=== PATIENT | male | born 1970 | race Caucasian/White ===

== ENCOUNTER → 2016-04-17 | Outpatient (CLI) | payer OTHER ==
[~2016-04-17] MED LIST: /TIZA4TA PO; GABA300C2 PO; LYRI100C10 PO; LYRI225C PO; LYRI75CA PO; MOBI15TA PO; OXYB5TA PO; ROBA750T4 PO; SAVE50TA PO; VICO5TAB OR; VOLT1GEL2 TD; [UNRECOGNIZED DRUG - OTHER]; baby aspirin PO
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
== END ==
LOC: M PAIN 10:20
PROVIDERS: ATTEND Nurse Practitioner Family
DX: Z09 Encounter for follow-up examination after completed treatment for conditions other than malignant neoplasm (principal); G89.29 Other chronic pain; G57.00 Lesion of sciatic nerve, unspecified lower limb; M79.7 Fibromyalgia; M51.26 Other intervertebral disc displacement, lumbar region; J44.9 Chronic obstructive pulmonary disease, unspecified; K43.6 Other and unspecified ventral hernia with obstruction, without gangrene; E55.9 Vitamin D deficiency, unspecified; J30.1 Allergic rhinitis due to pollen; J30.89 Other allergic rhinitis; Z91.018 Allergy to other foods; Z79.82 Long term (current) use of aspirin; Z79.899 Other long term (current) drug therapy; Z87.891 Personal history of nicotine dependence; Z86.59 Personal history of other mental and behavioral disorders

== ENCOUNTER → 2016-04-28 | Outpatient (CLI) | payer MEDICAID | LOC: M OUTALCOH 08:08 | PROVIDERS: ATTEND Psychiatry & Neurology Psychiatry | DX: Z13.9 Encounter for screening, unspecified (principal); F12.20 Cannabis dependence, uncomplicated ==

== ENCOUNTER → 2016-06-05 | Outpatient (CLI) | payer OTHER ==
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
== END ==
LOC: M PAIN 09:40
PROVIDERS: ATTEND Nurse Practitioner Family
DX: Z09 Encounter for follow-up examination after completed treatment for conditions other than malignant neoplasm (principal); G89.29 Other chronic pain; M51.26 Other intervertebral disc displacement, lumbar region; M54.16 Radiculopathy, lumbar region; M79.7 Fibromyalgia; J44.9 Chronic obstructive pulmonary disease, unspecified; E55.9 Vitamin D deficiency, unspecified; Z91.018 Allergy to other foods; J30.89 Other allergic rhinitis; Z87.891 Personal history of nicotine dependence; Z86.59 Personal history of other mental and behavioral disorders

== ENCOUNTER → 2016-06-13 | Outpatient (REF) | payer OTHER | LOC: M SFHCPLAZ 14:28 | PROVIDERS: ATTEND Family Medicine | DX: M54.16 Radiculopathy, lumbar region (principal); F12.10 Cannabis abuse, uncomplicated ==

== ENCOUNTER → 2016-06-24 | Outpatient (CLI) | payer MEDICAID | LOC: M OUTALCOH 08:23 | PROVIDERS: ATTEND Psychiatry & Neurology Psychiatry | DX: Z13.9 Encounter for screening, unspecified (principal); F12.20 Cannabis dependence, uncomplicated ==

== ENCOUNTER → 2016-07-07 | Outpatient (CLI) | payer OTHER ==
--- NOTE | 2016-07-07 11:25 | REP ---
MRI LUMBAR SPINE WITHOUT CONTRAST: HISTORY: Lumbar disc displacement without myelopathy. Increasing radicular pain. Low back pain radiating to the right leg. Comparison MRI study of the lumbar spine is from December 15, 2014. Comparison radiographs are from February 02, 2015. TECHNIQUE: Sagittal and axial T1 and T2-weighted scans are acquired in the usual fashion with and without fat saturation. Sequences include spin echo, turbo spin-echo, and STIR imaging sequences. MRI FINDINGS: There is straightening of the normal lumbar lordosis as before. Multilevel degenerative disc disease is noted at L2-3, L3-4, L4-5 with decreased disc space height and signal intensity on T2 weighted scans. Prominent anterior discogenic spurring is seen at L2-3 and L3-4. These findings are unchanged. There are reactive marrow changes on either side of the L2-3 disc as before. The conus medullaris terminates at T12-L1 and is unremarkable in appearance. At L1-2, there is no significant abnormality. At L2-3, axial and sagittal images demonstrate mild central canal stenosis with diffuse disc bulging flattening the ventral margin of the thecal sac. There is mild facet and ligamentum flavum hypertrophy. No neural foraminal narrowing is seen. At L3-4, there is diffuse disc bulging. Left foraminal disc bulging is seen producing left neural foraminal narrowing. This it is felt to be unchanged. L4-5, there is a right paracentral disc protrusion with caudal extrusion again seen. Previous study showed this disc extrusion exit eccentric to the left. There is compression of the thecal sac on the right on today's study. Some ligamentum flavum and facet hypertrophy are seen and mild central canal stenosis is noted although this overall is somewhat improved from the prior study. There is bilateral neural foraminal encroachment at L4-5 as before. At the L5-S1, there is facet hypertrophy bilaterally. No disc protrusion is seen. No neural foraminal compromise. IMPRESSION: The dominant abnormality is a moderate sized right posterior disc herniation with caudal extrusion. This was previously eccentric to the left. There is some central canal stenosis although the canal stenosis is improved compared to the prior study. Bilateral L4-5 neural foraminal narrowing is seen. Degenerative spondylosis changes are again noted in the other levels unchanged. Signed by Adin Ramírez MD 07/07/2016 11:51 A
== END ==
LOC: M RAD 07:22
PROVIDERS: ATTEND Nurse Practitioner Family
DX: M51.26 Other intervertebral disc displacement, lumbar region (principal); M54.16 Radiculopathy, lumbar region

== ENCOUNTER 2016-07-18 11:00 | Outpatient (RCR) | payer MEDICAID | END 2016-07-27 | LOC: M OUTALCOH 11:00 | PROVIDERS: ATTEND Psychiatry & Neurology Psychiatry | DX: F12.20 Cannabis dependence, uncomplicated (principal) ==

== ENCOUNTER → 2016-07-29 | Outpatient (CLI) | payer OTHER ==
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
== END ==
LOC: M PAIN 13:00
PROVIDERS: ATTEND Anesthesiology
DX: G89.29 Other chronic pain (principal); M51.16 Intervertebral disc disorders with radiculopathy, lumbar region; M79.7 Fibromyalgia; J44.9 Chronic obstructive pulmonary disease, unspecified; E55.9 Vitamin D deficiency, unspecified; Z87.891 Personal history of nicotine dependence; F10.21 Alcohol dependence, in remission; F41.1 Generalized anxiety disorder; F12.10 Cannabis abuse, uncomplicated; F32.89 Other specified depressive episodes; Z91.018 Allergy to other foods; J30.9 Allergic rhinitis, unspecified; Z79.899 Other long term (current) drug therapy

== ENCOUNTER → 2016-08-20 | Outpatient (REF) ==
--- NOTE | 2016-08-20 14:49 | REP ---
AP AND LATERAL CERVICAL SPINE, THREE VIEWS. HISTORY: Degenerative disc disease. The cervical spine is visualized from C1-2 through C7 level in the lateral radiograph. There is no acute fracture or subluxation. The C5-6 and C6-7 intervertebral discs are decreased in height consistent with disc degeneration. Osteophytes are present on C5 through C7. There is loss of the normal lordotic curve. IMPRESSION: Degenerative change as described above. Signed by Alfred Willams MD 08/20/2016 04:21 P
== END ==
LOC: M SMT 14:04
PROVIDERS: ATTEND Internal Medicine
DX: Z02.71 Encounter for disability determination (principal)

== ENCOUNTER 2016-08-22 10:00 | Outpatient (RCR) | payer OTHER | END 2016-08-27 | LOC: M OUTALCOH 10:00 | PROVIDERS: ATTEND Psychiatry & Neurology Psychiatry | DX: F12.20 Cannabis dependence, uncomplicated (principal) ==

== ENCOUNTER → 2016-09-09 | Outpatient (CLI) | payer OTHER ==
[~2016-09-09] MED LIST changes: +BUSP30TA PO; +CITA20TA4 PO; -LYRI100C10 PO; -OXYB5TA PO; +OXYB5TAB10 PO; +PREG100CA PO; +TRIA1CR TOP
--- NOTE | 2016-09-27 00:44 | ECWPNPC ---
PATIENT NAME: NIKHIL IRVIN : 1970 GENDER: MALE VISIT DATE: 09/09/2016 DISCHARGE DATE: 09/09/16 1447 VISIT LOCKED DATE TIME: PHYSICIAN: OLMAN MAIER PHYSICIAN PAGER NO: TEXT TO [phone] RESOURCE: OLMAN MAIER REASON FOR APPOINTMENT 1. BACK HISTORY OF PRESENT ILLNESS HISTORY OF PRESENT ILLNESS: PAIN THE PATIENT DESCRIBES THE PAIN... FALL RISK SCREENING: SCREENING :NO FALLS IN THE PAST YEAR TODAY'S VISIT: NOTES: HAS NOT YET HAD LESB WE HAVE NOT HEARD ON APPROVAL. CONTINUES WITH LOW BACK PAIN WITH RADIATION TO RIGHT LEG TO KNEE LEVE, AND WITH EXCESSIVE ACTIVITY PAIN ALSO RADIATES TO LEFT LEG. . CURRENT MEDICATIONS TAKING OXYBUTYNIN CHLORIDE 5 MG TABLET 1 TABLET ORALLY TWICE A DAY TAKING TENS UNIT ELECTRO PADS ONE SET WITH FOUR PADS GEL PADS MAY USE TRANSDERMAL EVERY OTHER DAY DX:722.73 TAKING METHOCARBAMOL 750 MG TABLET 1 TABLET ORALLY EVERY 8 HRS TAKING LYRICA 200 MG CAPSULE 1 CAPSULE ORALLY Q 8 HRS MDD=3 TAKING ALBUTEROL SULFATE HFA 108 (90 BASE) MCG/ACT AEROSOL SOLUTION 2 PUFFS NEEDED INHALATION EVERY 4 HRS PRN TAKING BUSPIRONE HCL 30 MG TABLET 1 TABLET ORALLY TWICE A DAY TAKING CITALOPRAM HYDROBROMIDE 40 MG TABLET 1 TABLET ORALLY Q AM (TOTAL DAILY DOSE 60MG) TAKING CITALOPRAM HYDROBROMIDE 20 MG TABLET 1 TABLET ORALLY Q PM (TOTAL DAILY DOSE 60MG) TAKING VALIUM 5 MG TABLET 1 TABLET NEEDED ORALLY TWICE A DAY, MDD #2 TAKING NABUMETONE 750 MG TABLET 2 TABLET ORALLY IN THE AM, ALWAYS TAKE WITH FOOD NOT-TAKING SAVELLA 50 MG TABLET 1 TABLET ORALLY TAKE 1 IN AM, 2 T EVENING MDD=3, NOTES: ON HOLD BECAUSE OF INSURANCE REASONS NOT-TAKING VOLTAREN 1 % GEL APPLY TO BACK TRANSDERMAL EVERY 6 HOURS (PAIN CLINIC), NOTES: USING BENGAY MEDICATION LIST REVIEWED AND RECONCILED WITH THE PATIENT PAST MEDICAL HISTORY LUMBAGO FIBROMYALGIA COPD - EMPHYSEMA EPIGASTRIC HERNIA DUST AND POLLEN ALLERGIES VITAMIN D DEFICIENCY H/O TOBACCO ABUSE 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 CONSTITUTIONAL: ANY CHANGE IN YOUR MEDICAL CONDITION? NO . CHILLS NO . FEVER NO . INFECTION: DO YOU HAVE NEW INFECTIONS? NO . DO YOU HAVE HISTORY OF MRSA? NO . MUSCULOSKELETAL: ANY NEW PATTERNS OF PAIN OR NUMBNESS? NO . GASTROENTEROLOGY: ANY NEW CHANGE IN BOWEL CONTROL? NO . GENITOURINARY: ANY NEW CHANGE IN BLADDER CONTROL? NO . IS THERE A CHANCE YOU COULD BE ? NO . HEMATOLOGY/LYMPH: DO YOU TAKE ANY BLOOD THINNERS? (FOR EXAMPLE- COUMADIN, PLAVIX, AGGRENOX, PLATEL, PRADAXA, OR XARELTO) NO . WHEN WAS YOUR LAST DOSE? DATE: TIME: . NEUROLOGY: HAVE YOU FALLEN IN THE PAST 6 MONTHS? NO . ANY NEW EXTREMITY NUMBNESS OR WEAKNESS? NO . CARDIOLOGY: DO YOU HAVE A PACEMAKER OR DEFIBRILLATOR? NO . RESPIRATORY: HAVE YOU BEEN SICK IN THE PAST WEEK? NO . FEVER NO . FLU LIKE SYMPTOMS? NO . COUGH NO . INTEGUMENTARY: DO YOU HAVE ANY RASHES OR OPEN SORES? NO . ALLERGIC/IMMUNO: ARE YOU ALLERGIC TO SHELLFISH OR IV DYE? NO . ANY NEW ALLERGIES? NO . PSYCHIATRIC: DO YOU HAVE THOUGHTS OF HURTING YOURSELF OR SOMEONE ELSE? NO . ARE YOU ABUSED, NEGLECTED, OR IN AN UNSAFE ENVIRONMENT? NO . ENDOCRINOLOGY: ARE YOU DIABETIC? NO . OTHER: DO YOU NEED ANY PRESCRIPTIONS? NO . IF YES, PLEASE LIST: ____ . ANY NEW PROBLEMS WITH YOUR MEDICATIONS? NO . WHEN DID YOU LAST EAT? ____ . WHEN DID YOU LAST DRINK? ____ . WHAT DID YOU LAST DRINK? ____ . NAME OF PERSON DRIVING YOU HOME? ____ . DO YOU HAVE ANY OTHER QUESTIONS OR CONCERNS NO . VITAL SIGNS WT 157.6 LBS, HT 69 IN, BMI 23.27 INDEX, BP 97/53 MM HG, HR 55 /MIN, RR 16 /MIN, TEMP 98.5 F, OXYGEN SAT % 97%, NA INITIALS SC 14:04, REVIEWED BY: CS. EXAMINATION GENERAL EXAMINATION: PSYCHALERT , APPROPRIATE MOOD AND AFFECT , ORIENTED X 3 . LUNGS:CLEAR TO AUSCULTATION BILATERALLY. HEART:HEART RATE REGULAR, RAPID. MUSCULOSKELETAL:PALPATION: POSITIVE FOR PAIN OVER LUMBAR SPINOUS PROCESSESS AND ACROSS THE LUMBOSACRAL AXIS. TRIGGER POINTS AND TIGHT FIBROUS BANDS:, ELICITED WITH PALPATION OVER LUMBAR PARAVERTEBRAL MUSCLES AND INTO THE SACRUM. RESTRICTION OF ROM IN THIS AREA. CANE USED FOR BALANCE.. ASSESSMENTS MYALGIA - M79.1 (PRIMARY) LUMBAR DISC DISPLACEMENT WITHOUT MYELOPATHY - M51.26 LUMBAR RADICULOPATHY - M54.16 FIBROMYALGIA - M79.7 TREATMENT MYALGIA NOTES: INTRALAMINAL EPIDURAL AT L4-5, L5-S1. HAS BEEN WAITING SINCE VISIT WITH DR LARES SINCE 07/29/16. WALK DAILY, DO EXERCISES AND STRETCHES. CONTINUE CURRENT MEDS. CLINICAL NOTES: ISTOP REGISTRY REVIEWED AND DEMNOSTRATES COMPLLIANCE. PROCEDURE CODES FA211 ESTABILISHED PATIENT [facility] FAC[facility] CHARGE DISPOSITION & COMMUNICATION FOLLOW UP AFTER INJECTION (REASON: INTRALAMINAL EPIDURAL AT L4-5, L5-S1. HAS BEEN WAITING SINCE VISIT WITH DR LARES SINCE 07/29/16) ELECTRONICALLY SIGNED BY KATI GALLARDO ON 09/26/2016 AT 04:37 PM EDT DISCLAIMER : THIS IS A VISIT SUMMARY EXTRACTED FROM THE [employer] CHART. IT IS NOT A COPY OF THE [employer] PROGRESS NOTE. JV
== END ==
LOC: M PAIN 14:00
PROVIDERS: ATTEND Nurse Practitioner Family
DX: M79.1 Myalgia (principal); M51.26 Other intervertebral disc displacement, lumbar region; M54.16 Radiculopathy, lumbar region; Z79.891 Long term (current) use of opiate analgesic; Z79.899 Other long term (current) drug therapy; Z91.018 Allergy to other foods

== ENCOUNTER → 2016-09-17 | Outpatient (REF) ==
[~2016-09-17] MED LIST changes: -BUSP30TA PO; -CITA20TA4 PO; +LYRI100C10 PO; +OXYB5TA PO; -OXYB5TAB10 PO; -PREG100CA PO; -TRIA1CR TOP
--- NOTE | 2016-09-18 02:49 | REP ---
Clinical: Pain and disability. Technique: AP, lateral, coned-down views of the lumbosacral spine. Correlation: MRI dated 07/07/2016. Comparison: 07/19/2010. Findings: Alignment and lordosis maintained. Moderate to advanced multilevel degenerative changes are appreciated including osteophytosis, endplate sclerosis/irregularity and joint space narrowing primarily involving the L2-3 level and to a lesser extent the L3-4, L4-5 levels. Disc space narrowing is also appreciated at the L5-S1 level without obvious marginal osteophytes. No acute fracture / compression injury or subluxation noted. Impression: Moderate to advanced multilevel degenerative changes primarily involving the L2-3 level. Signed by Mello Conrad MD 09/18/2016 02:40 A
== END ==
LOC: M SMT 11:33
PROVIDERS: ATTEND Internal Medicine
DX: Z02.71 Encounter for disability determination (principal)

== ENCOUNTER 2016-09-18 09:00 | Outpatient (RCR) | payer MEDICAID ==
[~2016-09-18 09:00] MED LIST changes: -LYRI100C10 PO; -OXYB5TA PO; +OXYB5TAB10 PO; +PREG100CA PO
== END 2016-09-26 | disposition home or self-care (01) ==
LOC: M OUTALCOH 09:00
PROVIDERS: ATTEND Psychiatry & Neurology Psychiatry
DX: F12.20 Cannabis dependence, uncomplicated (principal)

== ENCOUNTER → 2016-09-25 | Outpatient (CLI) | payer OTHER ==
[~2016-09-25] MED LIST changes: +BUSP30TA PO; +CITA20TA4 PO; +ISOVUE-M 300 61% 15ML VIAL (Q9967) As Ordered ONE; +LIDOCAINE 1% SDV INJ 30 ML VIAL As Ordered ONE; +TRIA1CR TOP; +methylPREDNISolone SUSP 40 MG/ML (DEPO-medrol) VIAL (J1030) As Ordered ONE; +oxyCODONE 5MG TAB As Ordered ONE
--- NOTE | 2016-09-25 13:37 | REP ---
PARTIAL LUMBAR SPINE SERIES: Two views. HISTORY: Lumbar epidural steroid injection for pain. FINDINGS: A sequence of two fluoroscopically obtained last image hold spot radiographs of the lumbar spine document needle position and contrast injection associated with injection procedure. 13 seconds of fluoroscopy time is reported Signed by Adin Ramírez MD 09/25/2016 03:34 P
--- NOTE | 2016-09-30 23:16 | ECWPNPC ---
PATIENT NAME: NIKHIL IRVIN : 1970 GENDER: MALE VISIT DATE: 09/25/2016 DISCHARGE DATE: 09/25/16 1159 VISIT LOCKED DATE TIME: PHYSICIAN: KYLIE LARES PHYSICIAN PAGER NO: TEXT TO [phone] RESOURCE: KYLIE LARES REASON FOR APPOINTMENT 1. INTRALAMINAL EPIDURAL HISTORY OF PRESENT ILLNESS HISTORY OF PRESENT ILLNESS: PAIN THE PATIENT DESCRIBES THE PAIN... FALL RISK SCREENING: SCREENING :NO FALLS IN THE PAST YEAR CURRENT MEDICATIONS TAKING OXYBUTYNIN CHLORIDE 5 MG TABLET 1 TABLET ORALLY TWICE A DAY, NOTES: 3 WEEKS AGO TAKING TENS UNIT ELECTRO PADS ONE SET WITH FOUR PADS GEL PADS MAY USE TRANSDERMAL EVERY OTHER DAY DX:722.73 TAKING METHOCARBAMOL 750 MG TABLET 1 TABLET ORALLY EVERY 8 HRS, NOTES: 09/24/16 1400 TAKING LYRICA 200 MG CAPSULE 1 CAPSULE ORALLY Q 8 HRS MDD=3, NOTES: 09/25/16 0600 TAKING ALBUTEROL SULFATE HFA 108 (90 BASE) MCG/ACT AEROSOL SOLUTION 2 PUFFS NEEDED INHALATION EVERY 4 HRS PRN, NOTES: 09/24/16 0800 TAKING BUSPIRONE HCL 30 MG TABLET 1 TABLET ORALLY TWICE A DAY, NOTES: 09/25/16 0800 TAKING CITALOPRAM HYDROBROMIDE 40 MG TABLET 1 TABLET ORALLY Q AM (TOTAL DAILY DOSE 60MG), NOTES: 09/25/16 0800 TAKING CITALOPRAM HYDROBROMIDE 20 MG TABLET 1 TABLET ORALLY Q PM (TOTAL DAILY DOSE 60MG), NOTES: 09/24/16 1400 TAKING VALIUM 5 MG TABLET 1 TABLET NEEDED ORALLY TWICE A DAY, MDD #2, NOTES: 09/25/16 1000 TAKING NABUMETONE 750 MG TABLET 2 TABLET ORALLY IN THE AM, ALWAYS TAKE WITH FOOD, NOTES: 09/25/16 0800 NOT-TAKING SAVELLA 50 MG TABLET 1 TABLET ORALLY TAKE 1 IN AM, 2 T EVENING MDD=3, NOTES: ON HOLD BECAUSE OF INSURANCE REASONS NOT-TAKING VOLTAREN 1 % GEL APPLY TO BACK TRANSDERMAL EVERY 6 HOURS (PAIN CLINIC), NOTES: USING BENGAY MEDICATION LIST REVIEWED AND RECONCILED WITH THE PATIENT PAST MEDICAL HISTORY LUMBAGO FIBROMYALGIA COPD - EMPHYSEMA EPIGASTRIC HERNIA DUST AND POLLEN ALLERGIES VITAMIN D DEFICIENCY H/O TOBACCO ABUSE 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 CONSTITUTIONAL: ANY CHANGE IN YOUR MEDICAL CONDITION? NO . CHILLS NO . FEVER NO . INFECTION: DO YOU HAVE NEW INFECTIONS? NO . DO YOU HAVE HISTORY OF MRSA? NO . MUSCULOSKELETAL: ANY NEW PATTERNS OF PAIN OR NUMBNESS? NO . GASTROENTEROLOGY: ANY NEW CHANGE IN BOWEL CONTROL? NO . GENITOURINARY: ANY NEW CHANGE IN BLADDER CONTROL? NO . IS THERE A CHANCE YOU COULD BE ? NO . HEMATOLOGY/LYMPH: DO YOU TAKE ANY BLOOD THINNERS? (FOR EXAMPLE- COUMADIN, PLAVIX, AGGRENOX, PLATEL, PRADAXA, OR XARELTO) NO . WHEN WAS YOUR LAST DOSE? DATE: TIME: . NEUROLOGY: HAVE YOU FALLEN IN THE PAST 6 MONTHS? NO . ANY NEW EXTREMITY NUMBNESS OR WEAKNESS? NO . CARDIOLOGY: DO YOU HAVE A PACEMAKER OR DEFIBRILLATOR? NO . RESPIRATORY: HAVE YOU BEEN SICK IN THE PAST WEEK? NO . FEVER NO . FLU LIKE SYMPTOMS? NO . COUGH NO . INTEGUMENTARY: DO YOU HAVE ANY RASHES OR OPEN SORES? NO . ALLERGIC/IMMUNO: ARE YOU ALLERGIC TO SHELLFISH OR IV DYE? NO . ANY NEW ALLERGIES? NO . PSYCHIATRIC: DO YOU HAVE THOUGHTS OF HURTING YOURSELF OR SOMEONE ELSE? NO . ARE YOU ABUSED, NEGLECTED, OR IN AN UNSAFE ENVIRONMENT? NO . ENDOCRINOLOGY: ARE YOU DIABETIC? NO . OTHER: DO YOU NEED ANY PRESCRIPTIONS? NO . IF YES, PLEASE LIST: ____ . ANY NEW PROBLEMS WITH YOUR MEDICATIONS? NO . WHEN DID YOU LAST EAT? ____09/24/16 2400 . WHEN DID YOU LAST DRINK? ____0800 05/18/16 . WHAT DID YOU LAST DRINK? ____BLACK COFFEE . NAME OF PERSON DRIVING YOU HOME? ____CAB . DO YOU HAVE ANY OTHER QUESTIONS OR CONCERNS NO . VITAL SIGNS WT 161.0 LBS, HT 69 IN, BMI 23.77 INDEX, BP 114/73 MM HG, HR 66 /MIN, RR 16 /MIN, TEMP 98.0 F, OXYGEN SAT % 98%, SAFE IN ENV? (Y/N) YES, NA INITIALS TL 1020, REVIEWED BY: LAS. HAWKINS INTERVERTEBRAL DISC DISORDERS WITH RADICULOPATHY, LUMBAR REGION - M51.16 (PRIMARY) PROCEDURES PRE PROCEDURE DIAGNOSIS LUMBAR RADICULOPATHY, LUMBAR DISC DISORDER WITH RADICULOPATHY POST PROCEDURE DIAGNOSIS LUMBAR RADICULOPATHY , LUMBAR DISC DISORDER WITH RADICULOPATHY PROCEDURE L4-L5 LUMBAR EPIDURAL STEROID INJECTION UNDER FLUOROSCOPIC GUIDANCE SURGEON DR. KYLIE LARES CORPORATE SPECIALIST NONE ANESTHESIA LOCAL PRE PROCEDURE NOTE THE PATIENT HAS A HISTORY OF CHRONIC LOW BACK PAIN. I EVALUATE THE PATIENT AND REVIEWED THE CHART. I WENT OVER THE RISKS, ALTERNATIVES, AND BENEFITS ASSOCIATED WITH THIS PROCEDURE. THE PATIENT WOULD LIKE TO PROCEED AND GIVE CONSENT TO PERFORMED THE PROCEDURE. THE PATIENT DENIES UNEXPLAINABLE WEIGHT LOSS, FEVER, CHILLS, OR NEW CHANGES IN URINARY OR BOWEL CONTROL. DESCRIPTION OF PROCEDURE THE PATIENT WAS BROUGHT TO THE PROCEDURE ROOM AND PLACED IN THE PRONE POSITION. THE LUMBOSACRAL AREA WAS CLEANED WITH BETADINE SOLUTION AND DRAPED ASEPTICALLY. THE PROCEDURE WAS DONE UNDER STERILE CONDITIONS. I CHECKED LATERALITY AND THE LEVEL WHERE THE PROCEDURE WAS GOING TO BE PERFORMED WITH THE PATIENT AND THE SUPPORTING STAFF AT THE MOMENT OF THE TIME OUT IN THE PROCEDURE ROOM. UNDER FLUOROSCOPIC GUIDANCE, THE TARGET POINT WAS SELECTED AT THE INTERLAMINAR LEVEL OF L4-L5. LIDOCAINE WAS USED TO NUMB THE SKIN AND THE SUBCUTANEOUS TISSUE BELOW IT. EPIDURAL TUOHY NEEDLE, 17-GAUGE, WAS ADVANCED UNDER FLUOROSCOPIC GUIDANCE AND FOLLOWING PATIENT FEEDBACK UNTIL THE EPIDURAL SPACE WAS REACHED, 7 CM DEEP INTO THE SKIN BY THE LOSS OF RESISTANCE TECHNIQUE. ISOVUE M DYE 30%, 0.25 ML, WAS INJECTED SHOWING ADEQUATE SPREAD OF THE DYE. THEN, A SOLUTION OF 3 ML OF NORMAL SALINE WITH DEPO-MEDROL 60 MG WAS INJECTED SLOWLY FOLLOWING PATIENT FEEDBACK. THERE WAS NO EVIDENCE OF BLOOD, PARESTHESIA OR CEREBROSPINAL FLUID DURING THE PROCEDURE. THE PATIENT WAS SENT TO THE RECOVERY ROOM. THE PATIENT WAS MOVING THE EXTREMITIES AND DOING WELL. THERE WAS NO COMPLICATION DURING THE PROCEDURE. FLUOROSCOPY TIME WAS 13 SECONDS. POST PROCEDURE NOTE THE PATIENT WILL BE SEEN IN A FOLLOW UP IN THE NEXT FEW WEEKS. INSTRUCTIONS WERE GIVEN, QUESTIONS WERE ANSWERED, AND THE PATIENT EXPRESSED UNDERSTANDING AND AGREES WITH THE PLAN. I, RACHAEL FRITZ, DOCUMENTED THE ABOVE INFORMATION ACTING A SCRIBE FOR DR. LARES. I HAVE REVIEWED THE ABOVE DOCUMENT, WRITTEN BY RACHAEL CASTILLO AND I VERIFY THAT IT IS [facility] FLUORO GUIDE SPINE INJECTION (PAIN)[id number] PROCEDURE CODES 85807 LUMBAR/SACRAL W/ IMAGING 6045F RADXPS IN END [id number] PXD DISPOSITION & COMMUNICATION FOLLOW UP 3 WEEKS ELECTRONICALLY SIGNED BY KYLIE LARES MD ON 09/30/2016 AT 09:52 PM EDT DISCLAIMER : THIS IS A VISIT SUMMARY EXTRACTED FROM THE [employer] CHART. IT IS NOT A COPY OF THE [employer] PROGRESS NOTE. MTDSharan
== END ==
LOC: M PAIN 10:20
PROVIDERS: ATTEND Anesthesiology
DX: G89.29 Other chronic pain (principal); M51.16 Intervertebral disc disorders with radiculopathy, lumbar region; M79.7 Fibromyalgia; J44.9 Chronic obstructive pulmonary disease, unspecified; K43.6 Other and unspecified ventral hernia with obstruction, without gangrene; E55.9 Vitamin D deficiency, unspecified; J30.89 Other allergic rhinitis; Z91.018 Allergy to other foods; Z79.899 Other long term (current) drug therapy; Z87.891 Personal history of nicotine dependence; Z86.59 Personal history of other mental and behavioral disorders

== ENCOUNTER → 2016-10-15 | Outpatient (CLI) | payer OTHER ==
[~2016-10-15] MED LIST changes: -ISOVUE-M 300 61% 15ML VIAL (Q9967) As Ordered ONE; -LIDOCAINE 1% SDV INJ 30 ML VIAL As Ordered ONE; -methylPREDNISolone SUSP 40 MG/ML (DEPO-medrol) VIAL (J1030) As Ordered ONE; -oxyCODONE 5MG TAB As Ordered ONE
--- NOTE | 2016-10-18 00:17 | ECWPNPC ---
PATIENT NAME: NIKHIL IRVIN : 1970 GENDER: MALE VISIT DATE: 10/15/2016 DISCHARGE DATE: 10/15/16 1306 VISIT LOCKED DATE TIME: PHYSICIAN: OLMAN MAIER PHYSICIAN PAGER NO: TEXT TO [phone] RESOURCE: OLMAN MAIER REASON FOR APPOINTMENT 1. POST LE HISTORY OF PRESENT ILLNESS HISTORY OF PRESENT ILLNESS: PAIN THE PATIENT DESCRIBES THE PAIN... FALL RISK SCREENING: SCREENING :NO FALLS IN THE PAST YEAR TODAY'S VISIT: NOTES: S/P LUMBAR EPIDURAL STEROID BLOCK COMPLETED ON 09/25/16. NOTES PAIN DECREASED FROM 7/10 TO 6/10 AND THEN RETRUNED TO BASELINE AT 2-3 WEEKS. IS HAVING CENTER SPINE PAIN IN LOW THORACIC REGION. NOTES CONTINUED PAIN OVER RIGHT BUTTUCKS AND INTO RIGHT LEG.REPORTS NUMBNESS AND TINGLING INTO BOTH LEGS TO THE LEVEL OF THE FEET WITH WALKING. CURRENT MEDICATIONS TAKING OXYBUTYNIN CHLORIDE 5 MG TABLET 1 TABLET ORALLY TWICE A DAY TAKING TENS UNIT ELECTRO PADS ONE SET WITH FOUR PADS GEL PADS MAY USE TRANSDERMAL EVERY OTHER DAY DX:722.73 TAKING ALBUTEROL SULFATE HFA 108 (90 BASE) MCG/ACT AEROSOL SOLUTION 2 PUFFS NEEDED INHALATION EVERY 4 HRS PRN TAKING BUSPIRONE HCL 30 MG TABLET 1 TABLET ORALLY TWICE A DAY TAKING CITALOPRAM HYDROBROMIDE 40 MG TABLET 1 TABLET ORALLY Q AM (TOTAL DAILY DOSE 60MG) TAKING CITALOPRAM HYDROBROMIDE 20 MG TABLET 1 TABLET ORALLY Q PM (TOTAL DAILY DOSE 60MG) TAKING NABUMETONE 750 MG TABLET 2 TABLET ORALLY IN THE AM, ALWAYS TAKE WITH FOOD TAKING METHOCARBAMOL 750 MG TABLET 1 TABLET ORALLY EVERY 8 HRS TAKING LYRICA 200 MG CAPSULE 1 CAPSULE ORALLY Q 8 HRS MDD=3 TAKING VALIUM 5 MG TABLET 1 TABLET NEEDED ORALLY TWICE A DAY, MDD #2 DISCONTINUED SAVELLA 50 MG TABLET 1 TABLET ORALLY TAKE 1 IN AM, 2 T EVENING MDD=3, NOTES: ON HOLD BECAUSE OF INSURANCE REASONS DISCONTINUED VOLTAREN 1 % GEL APPLY TO BACK TRANSDERMAL EVERY 6 HOURS (PAIN CLINIC), NOTES: USING BENGAY MEDICATION LIST REVIEWED AND RECONCILED WITH THE PATIENT PAST MEDICAL HISTORY LUMBAGO FIBROMYALGIA COPD - EMPHYSEMA EPIGASTRIC HERNIA DUST AND POLLEN ALLERGIES VITAMIN D DEFICIENCY H/O TOBACCO ABUSE 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 CONSTITUTIONAL: ANY CHANGE IN YOUR MEDICAL CONDITION? NO . CHILLS NO . FEVER NO . INFECTION: DO YOU HAVE NEW INFECTIONS? NO . DO YOU HAVE HISTORY OF MRSA? NO . MUSCULOSKELETAL: ANY NEW PATTERNS OF PAIN OR NUMBNESS? YES, LEFT FOOT HAS NUMBNESS, TINGLING OFF AND ON FROM KNEE DOWN INTO FOOT. . GASTROENTEROLOGY: ANY NEW CHANGE IN BOWEL CONTROL? NO . GENITOURINARY: ANY NEW CHANGE IN BLADDER CONTROL? NO . IS THERE A CHANCE YOU COULD BE ? NO . HEMATOLOGY/LYMPH: DO YOU TAKE ANY BLOOD THINNERS? (FOR EXAMPLE- COUMADIN, PLAVIX, AGGRENOX, PLATEL, PRADAXA, OR XARELTO) NO . WHEN WAS YOUR LAST DOSE? DATE: TIME: . NEUROLOGY: HAVE YOU FALLEN IN THE PAST 6 MONTHS? NO . ANY NEW EXTREMITY NUMBNESS OR WEAKNESS? NO . CARDIOLOGY: DO YOU HAVE A PACEMAKER OR DEFIBRILLATOR? NO . RESPIRATORY: HAVE YOU BEEN SICK IN THE PAST WEEK? NO . FEVER NO . FLU LIKE SYMPTOMS? NO . COUGH NO . INTEGUMENTARY: DO YOU HAVE ANY RASHES OR OPEN SORES? NO . ALLERGIC/IMMUNO: ARE YOU ALLERGIC TO SHELLFISH OR IV DYE? NO . ANY NEW ALLERGIES? NO . PSYCHIATRIC: DO YOU HAVE THOUGHTS OF HURTING YOURSELF OR SOMEONE ELSE? NO . ARE YOU ABUSED, NEGLECTED, OR IN AN UNSAFE ENVIRONMENT? NO . ENDOCRINOLOGY: ARE YOU DIABETIC? NO . OTHER: DO YOU NEED ANY PRESCRIPTIONS? NO . IF YES, PLEASE LIST: ____ . ANY NEW PROBLEMS WITH YOUR MEDICATIONS? NO . WHEN DID YOU LAST EAT? ____ . WHEN DID YOU LAST DRINK? ____ . WHAT DID YOU LAST DRINK? ____ . NAME OF PERSON DRIVING YOU HOME? ____ . DO YOU HAVE ANY OTHER QUESTIONS OR CONCERNS YES, VALIUM IS MAKING HIM TOO SLEEPY! INJECTION REALLY DIDN'T WORK&NBSP;. VITAL SIGNS WT 164.6 LBS, HT 69 IN, BMI 24.30 INDEX, BP 107/71 MM HG, HR 54 /MIN, RR 18 /MIN, TEMP 97.7 F, OXYGEN SAT % 97%, NA INITIALS SC 12:23, REVIEWED BY: CM. EXAMINATION GENERAL EXAMINATION: PSYCHALERT , APPROPRIATE MOOD AND AFFECT , ORIENTED X 3 . LUNGS:CLEAR TO AUSCULTATION BILATERALLY. HEART:HEART RATE REGULAR, RAPID. MUSCULOSKELETAL:PALPATION: POSITIVE FOR PAIN OVER LUMBAR SPINOUS PROCESSESS AND ACROSS THE LUMBOSACRAL AXIS. POINT TENDERNESS OVER RIGHT SACRAL ILIAC JOINT AND RIGHT PIRIFORMIS REGION. TRIGGER POINTS AND TIGHT FIBROUS BANDS:, ELICITED WITH PALPATION OVER LUMBAR PARAVERTEBRAL MUSCLES AND INTO THE SACRUM. RESTRICTION OF ROM IN THIS AREA. CANE USED FOR BALANCE. SLOW TO RISE TO STANDING POSITION. GAIT WIDEBASED, ANTALGIC. ASSESSMENTS MYALGIA - M79.1 (PRIMARY) LUMBAR DISC DISPLACEMENT WITHOUT MYELOPATHY - M51.26 LUMBAR RADICULOPATHY - M54.16 FIBROMYALGIA - M79.7 TREATMENT MYALGIA TRIGGER POINT 3 + OLMAN NAVA 10/15/2016 12:39:13 PM > LOW BACK , LOW THORACIC NOTES: CONTINUE CURRENT MEDS,TRIGGER POINT INJECTION MATERIAL WAS PRINTED. REFERRAL TO:MADHAV HERNANDEZ ([facility])NEUROSURGERY REASON:L4-5 DISC HERNIATION WITH BILATERAL LE RADICULOPATHY PROCEDURE CODES FA211 ESTABILISHED PATIENT [facility] FACILITY CHARGE DISPOSITION & COMMUNICATION FOLLOW UP AFTER INJECTION (REASON: CHECK AUTH FOR TPI) ELECTRONICALLY SIGNED BY KATI GALLARDO ON 10/17/2016 AT 08:33 AM EDT DISCLAIMER : THIS IS A VISIT SUMMARY EXTRACTED FROM THE [employer] CHART. IT IS NOT A COPY OF THE [employer] PROGRESS NOTE. JV
== END ==
LOC: M PAIN 12:00
PROVIDERS: ATTEND Nurse Practitioner Family
DX: M51.26 Other intervertebral disc displacement, lumbar region (principal); M54.16 Radiculopathy, lumbar region; M79.7 Fibromyalgia; R20.2 Paresthesia of skin; J43.9 Emphysema, unspecified; K43.9 Ventral hernia without obstruction or gangrene; E55.9 Vitamin D deficiency, unspecified; F10.21 Alcohol dependence, in remission; Z91.018 Allergy to other foods; J30.89 Other allergic rhinitis; Z79.891 Long term (current) use of opiate analgesic; Z79.899 Other long term (current) drug therapy; Z87.891 Personal history of nicotine dependence

== ENCOUNTER 2016-10-23 09:00 | Outpatient (RCR) | payer MEDICAID ==
[~2016-10-23 09:00] MED LIST changes: -BUSP30TA PO; -CITA20TA4 PO; -TRIA1CR TOP
== END 2016-10-27 ==
LOC: M OUTALCOH 09:00
PROVIDERS: ATTEND Psychiatry & Neurology Psychiatry
DX: F12.20 Cannabis dependence, uncomplicated (principal)

== ENCOUNTER → 2016-10-27 | Outpatient (CLI) | payer OTHER ==
[~2016-10-27] MED LIST changes: +BUPIVACAINE HCL 0.25% 10 ML VIAL As Ordered ONE; +BUPIVACAINE HCL 0.25% 30 ML VIAL As Ordered ONE; +BUSP30TA PO; +CITA20TA4 PO; +TRIA1CR TOP; +TRIAMCINOLONE ACETONIDE SUSP 40 MG/ML VIAL (J3301) As Ordered ONE; +oxyCODONE 5MG TAB As Ordered ONE
--- NOTE | 2016-11-11 00:23 | ECWPNPC ---
PATIENT NAME: NIKHIL IRVIN : 1970 GENDER: MALE VISIT DATE: 10/27/2016 DISCHARGE DATE: 10/27/16 1624 VISIT LOCKED DATE TIME: PHYSICIAN: KYLIE LARES PHYSICIAN PAGER NO: TEXT TO [phone] RESOURCE: KYLIE LARES REASON FOR APPOINTMENT 1. TPI HISTORY OF PRESENT ILLNESS HISTORY OF PRESENT ILLNESS: PAIN THE PATIENT DESCRIBES THE PAIN... FALL RISK SCREENING: SCREENING :NO FALLS IN THE PAST YEAR CURRENT MEDICATIONS TAKING OXYBUTYNIN CHLORIDE 5 MG TABLET 1 TABLET ORALLY TWICE A DAY, NOTES: 10-26-162099 TAKING TENS UNIT ELECTRO PADS ONE SET WITH FOUR PADS GEL PADS MAY USE TRANSDERMAL EVERY OTHER DAY DX:722.73, NOTES: 10-27-16899 TAKING ALBUTEROL SULFATE HFA 108 (90 BASE) MCG/ACT AEROSOL SOLUTION 2 PUFFS NEEDED INHALATION EVERY 4 HRS PRN, NOTES: 10-26-162099 TAKING BUSPIRONE HCL 30 MG TABLET 1 TABLET ORALLY TWICE A DAY, NOTES: 10-27-16 21414 TAKING CITALOPRAM HYDROBROMIDE 40 MG TABLET 1 TABLET ORALLY Q AM (TOTAL DAILY DOSE 60MG), NOTES: 10-27-16 TAKING CITALOPRAM HYDROBROMIDE 20 MG TABLET 1 TABLET ORALLY Q PM (TOTAL DAILY DOSE 60MG), NOTES: 10-27-16899 TAKING NABUMETONE 750 MG TABLET 2 TABLET ORALLY IN THE AM, ALWAYS TAKE WITH FOOD, NOTES: 10-27-16899 TAKING METHOCARBAMOL 750 MG TABLET 1 TABLET ORALLY EVERY 8 HRS, NOTES: 10-27-16899 TAKING LYRICA 200 MG CAPSULE 1 CAPSULE ORALLY Q 8 HRS MDD=3, NOTES: 10-27-16899 TAKING VALIUM 5 MG TABLET 1 TABLET NEEDED ORALLY TWICE A DAY, MDD #2, NOTES: 10-27-16 0800 MEDICATION LIST REVIEWED AND RECONCILED WITH THE PATIENT PAST MEDICAL HISTORY LUMBAGO FIBROMYALGIA COPD - EMPHYSEMA EPIGASTRIC HERNIA DUST AND POLLEN ALLERGIES VITAMIN D DEFICIENCY H/O TOBACCO ABUSE 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 CONSTITUTIONAL: ANY CHANGE IN YOUR MEDICAL CONDITION? NO . CHILLS NO . FEVER NO . INFECTION: DO YOU HAVE NEW INFECTIONS? NO . DO YOU HAVE HISTORY OF MRSA? NO . MUSCULOSKELETAL: ANY NEW PATTERNS OF PAIN OR NUMBNESS? NO . GASTROENTEROLOGY: ANY NEW CHANGE IN BOWEL CONTROL? NO . GENITOURINARY: ANY NEW CHANGE IN BLADDER CONTROL? NO . IS THERE A CHANCE YOU COULD BE ? NO . HEMATOLOGY/LYMPH: DO YOU TAKE ANY BLOOD THINNERS? (FOR EXAMPLE- COUMADIN, PLAVIX, AGGRENOX, PLATEL, PRADAXA, OR XARELTO) NO . WHEN WAS YOUR LAST DOSE? DATE: TIME: . NEUROLOGY: HAVE YOU FALLEN IN THE PAST 6 MONTHS? NO . ANY NEW EXTREMITY NUMBNESS OR WEAKNESS? NO . CARDIOLOGY: DO YOU HAVE A PACEMAKER OR DEFIBRILLATOR? NO . RESPIRATORY: HAVE YOU BEEN SICK IN THE PAST WEEK? NO . FEVER NO . FLU LIKE SYMPTOMS? NO . COUGH NO . INTEGUMENTARY: DO YOU HAVE ANY RASHES OR OPEN SORES? NO . ALLERGIC/IMMUNO: ARE YOU ALLERGIC TO SHELLFISH OR IV DYE? NO . ANY NEW ALLERGIES? NO . PSYCHIATRIC: DO YOU HAVE THOUGHTS OF HURTING YOURSELF OR SOMEONE ELSE? NO . ARE YOU ABUSED, NEGLECTED, OR IN AN UNSAFE ENVIRONMENT? NO . ENDOCRINOLOGY: ARE YOU DIABETIC? NO . OTHER: DO YOU NEED ANY PRESCRIPTIONS? NO . IF YES, PLEASE LIST: ____ . ANY NEW PROBLEMS WITH YOUR MEDICATIONS? NO . WHEN DID YOU LAST EAT? ____LAST NIGHT . WHEN DID YOU LAST DRINK? ____10 AM TODAY . WHAT DID YOU LAST DRINK? ____ACK COFFEE . NAME OF PERSON DRIVING YOU HOME? TAXI CAB____ . DO YOU HAVE ANY OTHER QUESTIONS OR CONCERNS NO . VITAL SIGNS WT 163.2 LBS, HT 69 IN, BMI 24.10 INDEX, BP 102/76 MM HG, HR 57 /MIN, RR 18 /MIN, TEMP 98.1 F, OXYGEN SAT % 98%, NA INITIALS SC 15:25, REVIEWED BY: KG. ASSESSMENTS MYALGIA - M79.1 (PRIMARY) PROCEDURES PN TRIGGER POINT INJECTION WITH STEROIDS PRE PROCEDURE DIAGNOSIS 1. MYALGIA 2. PAIN AT BILATERAL THORACIC AREA AND BILATERAL LOWER BACK AREA POST PROCEDURE DIAGNOSIS 1. MYALGIA 2. PAIN AT BILATERAL THORACIC AREA AND BILATERAL LOWER BACK AREA PROCEDURE TRIGGER POINT INJECTION AT BILATERAL THORACIC AREA AND BILATERAL LOWER BACK SURGEON DR. KYLIE LARES VESSEL WELDER NONE ANESTHESIA LOCAL PRE PROCEDURE NOTE THE PATIENT HAS A HISTORY OF CHRONIC PAIN AT THE RIGHT AND LEFT THORACIC AREA AND RIGHT AND LEFT LOWER BACK AREA. I EVALUATE THE PATIENT AND REVIEWED THE CHART. THERE IS EVIDENCE OF BANDS OF TISSUE WITH RESTRICTION OF MOVEMENT AND PRESENCE OF TRIGGER POINT AT THE AFFECTED AREA. I WENT OVER THE RISKS, ALTERNATIVES, AND BENEFITS ASSOCIATED WITH THIS PROCEDURE. THE PATIENT WOULD LIKE TO PROCEED AND GIVE CONSENT TO PERFORMED THE PROCEDURE. THE PATIENT DENIES UNEXPLAINABLE WEIGHT LOSS, FEVER, CHILLS, OR NEW CHANGES IN URINARY OR BOWEL CONTROL DESCRIPTION OF PROCEDURE THE PATIENT WAS BROUGHT TO THE PROCEDURE ROOM AND PLACED IN THE SITTING POSITION. THE AREA WAS CLEANED WITH ALCOHOL. THE PROCEDURE WAS DONE USING ASEPTIC STERILE TECHNIQUE. I CHECKED LATERALITY AND THE LEVEL WHERE THE PROCEDURE WAS GOING TO BE PERFORMED WITH THE PATIENT AND THE SUPPORTING STAFF AT THE MOMENT OF THE TIME OUT IN THE PROCEDURE ROOM. USING A 25-GAUGE NEEDLE, TRIGGER POINTS WERE INJECTED AT THE RIGHT AND LEFT THORACIC AREA AND RIGHT AND LEFT LOWER BACK AREA WITH A TOTAL OF 40 ML OF BUPIVACAINE 0.25% AND KENALOG 40 MG. THERE WAS NO EVIDENCE OF BLOOD, PARESTHESIA OR CEREBROSPINAL FLUID DURING THE PROCEDURE. THE PATIENT WAS SENT TO THE RECOVERY ROOM. THE PATIENT WAS MOVING THE EXTREMITIES AND DOING WELL. THERE WAS NO COMPLICATION DURING THE PROCEDURE POST PROCEDURE NOTE THE PATIENT WILL BE SEEN IN A FOLLOW UP IN THE NEXT FEW WEEKS. INSTRUCTIONS WERE GIVEN, QUESTIONS WERE ANSWERED, AND THE PATIENT EXPRESSED UNDERSTANDING AND AGREES WITH THE PLAN. I, IRENE PHILLIPS, DOCUMENTED THE ABOVE INFORMATION ACTING A SCRIBE FOR DR. LARES. I HAVE REVIEWED THE ABOVE DOCUMENT, WRITTEN BY IRENE CASTILLO AND I VERIFY THAT IT IS ACCURATE PROCEDURE CODES 77674 INJ TRIGGER POINT 03/31 [facility] DISPOSITION & COMMUNICATION FOLLOW UP 3 WEEKS ELECTRONICALLY SIGNED BY KYLIE LARES MD ON 11/10/2016 AT 08:01 PM EDT DISCLAIMER : THIS IS A VISIT SUMMARY EXTRACTED FROM THE [employer] CHART. IT IS NOT A COPY OF THE [employer] PROGRESS NOTE. JV
== END ==
LOC: M PAIN 14:40
PROVIDERS: ATTEND Anesthesiology
DX: G89.29 Other chronic pain (principal); M54.6 Pain in thoracic spine; M54.5 Low back pain; M79.1 Myalgia; J43.9 Emphysema, unspecified; K43.9 Ventral hernia without obstruction or gangrene; J30.89 Other allergic rhinitis; F10.21 Alcohol dependence, in remission; Z91.018 Allergy to other foods; Z87.891 Personal history of nicotine dependence; Z79.899 Other long term (current) drug therapy
CPT/HCPCS: 20553; J3301

== ENCOUNTER 2016-11-09 21:19 | Emergency (ER) | payer MEDICAID, OTHER ==
[~2016-11-09] VITALS: Ht 175.3 cm; Wt 74.0 kg
[2016-11-09 21:19] VITALS: BP 111/69
[~2016-11-09 21:19] MED LIST changes: -BUPIVACAINE HCL 0.25% 10 ML VIAL As Ordered ONE; -BUPIVACAINE HCL 0.25% 30 ML VIAL As Ordered ONE; -BUSP30TA PO; -CITA20TA4 PO; -TRIA1CR TOP; -TRIAMCINOLONE ACETONIDE SUSP 40 MG/ML VIAL (J3301) As Ordered ONE; -oxyCODONE 5MG TAB As Ordered ONE
[2016-11-09] MEDS ORDERED: BUSP30TA PO (21:34)
[2016-11-09] MEDS ORDERED: CITA20TA4 PO (21:36)
[2016-11-09] MEDS ORDERED: TRIA1CR TOP (21:52)
[2016-11-09] MEDS ORDERED: diphenhydrAMINE 50 MG CAP PO ONE (22:00)
[2016-11-09] MEDS ORDERED: predniSONE 20 MG TAB PO ONE (22:00)
== END 2016-11-09 22:08 | disposition home or self-care (01) ==
LOC: M ED 21:19
DX: R21 Rash and other nonspecific skin eruption (principal); L29.9 Pruritus, unspecified; L50.9 Urticaria, unspecified; T63.441A Toxic effect of venom of bees, accidental (unintentional), initial encounter; Y92.099 Unspecified place in other non-institutional residence as the place of occurrence of the external cause; Y93.9 Activity, unspecified; F41.9 Anxiety disorder, unspecified; Z87.891 Personal history of nicotine dependence; Z79.82 Long term (current) use of aspirin; Z79.899 Other long term (current) drug therapy

== ENCOUNTER → 2016-11-12 | Outpatient (CLI) | payer OTHER ==
[~2016-11-12] MED LIST changes: +BUSP30TA PO; +CITA20TA4 PO; +TRIA1CR TOP
--- NOTE | 2016-11-27 00:49 | ECWPNPC ---
PATIENT NAME: NIKHIL IRVIN : 1970 GENDER: MALE VISIT DATE: 11/12/2016 DISCHARGE DATE: 11/12/16 1208 VISIT LOCKED DATE TIME: PHYSICIAN: OLMAN MAIER PHYSICIAN PAGER NO: TEXT TO [phone] RESOURCE: OLMAN MAIER REASON FOR APPOINTMENT 1. POST TPI HISTORY OF PRESENT ILLNESS HISTORY OF PRESENT ILLNESS: PAIN THE PATIENT DESCRIBES THE PAIN... FALL RISK SCREENING: SCREENING :NO FALLS IN THE PAST YEAR TODAY'S VISIT: NOTES: RATES PAIN TODAY 7/10. IS S/P TPI WITH STEROIDS TO MID THORACIC AND LOW BACK AREAS COMPLETED ON 10/27/16, DESCRIBES PAIN CONSTANT, ACHING TENDER AND SORE AND IS SOMETIMES STABBING. NOTES PAIN DECREASED FROM 7/10- TO /10 BUT IS RETURNING BACK TO BASELINE. . CURRENT MEDICATIONS TAKING OXYBUTYNIN CHLORIDE 5 MG TABLET 1 TABLET ORALLY TWICE A DAY TAKING TENS UNIT ELECTRO PADS ONE SET WITH FOUR PADS GEL PADS MAY USE TRANSDERMAL EVERY OTHER DAY DX:722.73 TAKING ALBUTEROL SULFATE HFA 108 (90 BASE) MCG/ACT AEROSOL SOLUTION 2 PUFFS NEEDED INHALATION EVERY 4 HRS PRN TAKING BUSPIRONE HCL 30 MG TABLET 1 TABLET ORALLY TWICE A DAY TAKING CITALOPRAM HYDROBROMIDE 40 MG TABLET 1 TABLET ORALLY Q AM (TOTAL DAILY DOSE 60MG) TAKING CITALOPRAM HYDROBROMIDE 20 MG TABLET 1 TABLET ORALLY Q PM (TOTAL DAILY DOSE 60MG) TAKING NABUMETONE 750 MG TABLET 2 TABLET ORALLY IN THE AM, ALWAYS TAKE WITH FOOD TAKING METHOCARBAMOL 750 MG TABLET 1 TABLET ORALLY EVERY 8 HRS TAKING LYRICA 200 MG CAPSULE 1 CAPSULE ORALLY Q 8 HRS MDD=3 TAKING VALIUM 5 MG TABLET 1 TABLET NEEDED ORALLY TWICE A DAY, MDD #2 MEDICATION LIST REVIEWED AND RECONCILED WITH THE PATIENT PAST MEDICAL HISTORY LUMBAGO FIBROMYALGIA COPD - EMPHYSEMA EPIGASTRIC HERNIA DUST AND POLLEN ALLERGIES VITAMIN D DEFICIENCY H/O TOBACCO ABUSE 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 8 CUPS/ DAY AND 3 CUPS SODA/DAY JUDAISM [id number] NONE NO MOSQUE BELIEFS THAT WOULD IMPACT HEALTH CARE. LANGUAGE LANGUAGES SPOKEN:GUYANESE EDUCATION LEVEL OF EDUCATION:HIGH SCHOOL GED LEARNING BARRIERS / SPECIAL NEEDS CHANGE FROM LAST VISIT?NO BARRIERS TO LEARNING?NO HEARING IMPAIRED?NO VISION IMPAIRED?YES :CORRECTIVE LENSES READING GLASSES COGNITIVELY IMPAIRED?NO READINESS TO LEARN?YES LEARNING PREFERENCES?NO LEARNING CAPABILITIES PRESENT?YES EMOTIONAL BARRIERS?NO SPECIAL DEVICES?YES :CANE QUALITY CONTROL MICROBIOLOGY SUPERVISOR NEEDED?NO NEW PATIENT PAIN DIARY TODAY'S VISITNOTES FROM 0-10, WHAT LEVEL IS YOUR PAIN TODAY?0 PAIN CLINIC PFS, CLERGY, PUBLIC HEALTH REFERRALS PFS REFERRAL NEEDED?NO CLERGY REFERRAL NEEDED?NO PUBLIC HEALTH REFERRAL NEEDED?NO WAS THE PROVIDER NOTIFIED OF ANY PERTINENT INFO?NO HAS THE PATIENT BEEN EDUCATED REGARDING HIS/HER PLAN OF CARE?YES HAS THE PATIENT BEEN EDUCATED REGARDING PAIN, THE RISK FOR PAIN, THE IMPORTANCE OF EFFECTIVE PAIN MANAGEMENT, AND THE PAIN ASSESSMENT PROCESS?YES REVIEW OF SYSTEMS REVIEWED BY: PROVIDER: OLMAN STUART . CONSTITUTIONAL: ANY CHANGE IN YOUR MEDICAL CONDITION? NO . CHILLS NO . FEVER NO . INFECTION: DO YOU HAVE NEW INFECTIONS? NO . DO YOU HAVE HISTORY OF MRSA? NO . MUSCULOSKELETAL: ANY NEW PATTERNS OF PAIN OR NUMBNESS? NO . GASTROENTEROLOGY: ANY NEW CHANGE IN BOWEL CONTROL? NO . GENITOURINARY: ANY NEW CHANGE IN BLADDER CONTROL? NO . IS THERE A CHANCE YOU COULD BE ? NO . HEMATOLOGY/LYMPH: DO YOU TAKE ANY BLOOD THINNERS? (FOR EXAMPLE- COUMADIN, PLAVIX, AGGRENOX, PLATEL, PRADAXA, OR XARELTO) NO . WHEN WAS YOUR LAST DOSE? DATE: TIME: . NEUROLOGY: HAVE YOU FALLEN IN THE PAST 6 MONTHS? NO . ANY NEW EXTREMITY NUMBNESS OR WEAKNESS? NO . CARDIOLOGY: DO YOU HAVE A PACEMAKER OR DEFIBRILLATOR? NO . RESPIRATORY: HAVE YOU BEEN SICK IN THE PAST WEEK? NO . FEVER NO . FLU LIKE SYMPTOMS? NO . COUGH NO . INTEGUMENTARY: DO YOU HAVE ANY RASHES OR OPEN SORES? NO . ALLERGIC/IMMUNO: ARE YOU ALLERGIC TO SHELLFISH OR IV DYE? NO . ANY NEW ALLERGIES? YES, BEE STINGS . PSYCHIATRIC: DO YOU HAVE THOUGHTS OF HURTING YOURSELF OR SOMEONE ELSE? NO . ARE YOU ABUSED, NEGLECTED, OR IN AN UNSAFE ENVIRONMENT? NO . ENDOCRINOLOGY: ARE YOU DIABETIC? NO . OTHER: DO YOU NEED ANY PRESCRIPTIONS? NO . IF YES, PLEASE LIST: ____ . ANY NEW PROBLEMS WITH YOUR MEDICATIONS? NO . WHEN DID YOU LAST EAT? ____ . WHEN DID YOU LAST DRINK? ____ . WHAT DID YOU LAST DRINK? ____ . NAME OF PERSON DRIVING YOU HOME? ____ . DO YOU HAVE ANY OTHER QUESTIONS OR CONCERNS NO . VITAL SIGNS WT 163.2 LBS, HT 69 IN, BMI 24.10 INDEX, BP 98/65 MM HG, HR 51 /MIN, RR 16 /MIN, TEMP 98.0 F, OXYGEN SAT % 99%, NA INITIALS SC 11:27, REVIEWED BY: LEXI. EXAMINATION GENERAL EXAMINATION: PSYCHALERT , APPROPRIATE MOOD AND AFFECT , ORIENTED X 3 . LUNGS:CLEAR TO AUSCULTATION BILATERALLY. HEART:HEART RATE REGULAR, RAPID. MUSCULOSKELETAL:PALPATION: POSITIVE FOR PAIN OVER LUMBAR SPINOUS PROCESSESS AND ACROSS THE LUMBOSACRAL AXIS. POINT TENDERNESS OVER RIGHT SACRAL ILIAC JOINT AND RIGHT PIRIFORMIS REGION. TRIGGER POINTS AND TIGHT FIBROUS BANDS:, ELICITED WITH PALPATION OVER LUMBAR PARAVERTEBRAL MUSCLES AND INTO THE SACRUM. RESTRICTION OF ROM IN THIS AREA. CANE USED FOR BALANCE. SLOW TO RISE TO STANDING POSITION. GAIT WIDEBASED, ANTALGIC. ASSESSMENTS MYALGIA - M79.1 (PRIMARY) LUMBAR DISC DISPLACEMENT WITHOUT MYELOPATHY - M51.26 LUMBAR RADICULOPATHY - M54.16 FIBROMYALGIA - M79.7 TREATMENT MYALGIA NOTES: FOLLOW UP WITH NEUROSURGEON - TAKE DISC WITH FILMSKEEP WALKING, DO STRETCHES, TAKE USUAL MEDS ORDERED. PROCEDURE CODES FA211 ESTABILISHED PATIENT [facility] CHARGE DISPOSITION & COMMUNICATION FOLLOW UP 6 WEEKS (REASON: BACK PAIN) ELECTRONICALLY SIGNED BY KATI GALLARDO ON 11/26/2016 AT 06:35 PM EDT DISCLAIMER : THIS IS A VISIT SUMMARY EXTRACTED FROM THE [employer] CHART. IT IS NOT A COPY OF THE [employer] PROGRESS NOTE. JV
== END ==
LOC: M PAIN 11:30
PROVIDERS: ATTEND Nurse Practitioner Family
DX: G89.29 Other chronic pain (principal); M51.26 Other intervertebral disc displacement, lumbar region; M54.16 Radiculopathy, lumbar region; M79.7 Fibromyalgia; F41.9 Anxiety disorder, unspecified; F12.10 Cannabis abuse, uncomplicated; F32.89 Other specified depressive episodes; Z91.018 Allergy to other foods; Z91.030 Bee allergy status; J30.89 Other allergic rhinitis; Z79.899 Other long term (current) drug therapy

== ENCOUNTER → 2016-11-27 | Outpatient (RCR) | payer MEDICAID | LOC: M OUTALCOH 11-06 13:37 | PROVIDERS: ATTEND Psychiatry & Neurology Psychiatry | DX: F12.20 Cannabis dependence, uncomplicated (principal) ==

== ENCOUNTER → 2016-12-09 | Outpatient (CLI) | payer OTHER ==
--- NOTE | 2016-12-09 15:36 | REP ---
CT LUMBAR STEALTH PROTOCOL: 12/09/2016. CLINICAL HISTORY: Back pain, radiculopathy. TECHNIQUE: Sequential axial images from the midbody of T12 through upper sacrum at 0.67 mm slice thickness and interval. Findings: The images were obtained for preoperative planning purposes. Please see the lumbar spine CT report this date for detail. Signed by Remy Narayanan MD 12/09/2016 04:18 P
--- NOTE | 2016-12-09 15:39 | REP ---
CT LUMBAR SPINE WITHOUT CONTRAST: 12/09/2016. CLINICAL HISTORY: Lumbar radiculopathy. COMPARISON: Limited lumbar spine 09/17/2016, MRI 07/07/2016. TECHNIQUE: Axial thin-section images through the spine with coronal and sagittal reconstructions. Angled axial reconstructions through the L4-5 and L5-S1 level provided. FINDINGS: Normal lumbar lordosis is reduced as on previous studies. There is spondylosis with narrowing and disc spaces and L2-3 and L4-5 less at L5-S1 and least at L3-4. Only the L1-2 level maintains its normal height. There is vacuum phenomenon anteriorly at L2-3 and more at L4-5. Discogenic endplate changes noted all along L4-5 and anteriorly at the L2-3 level. Marginal osteophytes are greatest anteriorly at L2-3. There is no compression deformity or destructive lesion. The T12-L1 levels shows no disc bulge herniation and no spinal or foraminal stenosis. The L1-2 level shows no disc bulge herniation and no spinal or foraminal stenosis. The L2-3 level shows broad-based disc bulge with some ligamentum and facet hypertrophy. The cross-sectional area of the canal is slightly diminished. AP canal diameter is 9.4 mm mildly narrowed. Circumferential bulge is seen extending more into the left than right foramen. Foramina are marginally adequate. At L3-4 there is a broad-based disc bulge, ligamentum and facet hypertrophy contributing to some mild central canal stenosis. Circumferential bulge is greater on the left than right. This causes some mild foraminal encroachment on the left. The right was adequate. At L4-5 again shows a broad-based disc bulge with the central disc protrusion or extrusion with some associated vacuum phenomenon in the disc and right behind the disc protrusion into the canal. This is causing central canal stenosis. Foraminal stenosis is noted due to combined factors including facet hypertrophy and disc bulge. At L5-S1 there is broad-based disc bulge without definite protrusion abuts the ventral thecal sac. Cross-sectional area of the canal was adequate. Foramina are adequate. Sacralization of the transverse process of L5 on the left with anomalous articulation with the superior aspect of the sacrum has anatomic variation. IMPRESSION: 1. Multilevel degenerative disc changes with disc protrusion/extrusion at L4-5 level with vacuum phenomenon in the disc and just behind the protruded disc, this is the greatest area of stenosis and there is foraminal encroachment on the left due to combined factors. 2. Degenerative disc changes at L2-3 with broad-based disc bulge and borderline central canal and the foramina marginally adequate. 3. Broad-based disc bulge at L3-4 with mild central canal stenosis and some foraminal encroachment on the left due to the circumferential disc bulge, asymmetrically greater on the left. 4. Disc bulge without spinal or foraminal stenosis at L5-S1. The L1-2 level was normal. Signed by Remy Narayanan MD 12/09/2016 04:24 P
== END ==
LOC: M RAD 12:52
PROVIDERS: ATTEND Physician Assistant Surgical
DX: M54.16 Radiculopathy, lumbar region (principal); M51.36 Other intervertebral disc degeneration, lumbar region

== ENCOUNTER 2016-12-25 09:00 | Outpatient (RCR) | payer MEDICAID | END 2016-12-27 | LOC: M OUTALCOH 09:00 | PROVIDERS: ATTEND Psychiatry & Neurology Psychiatry | DX: F12.20 Cannabis dependence, uncomplicated (principal) ==

== ENCOUNTER 2017-01-29 15:55 | Outpatient (RCR) | payer MEDICAID | END 2017-02-26 | LOC: M OUTALCOH 15:55 | PROVIDERS: ATTEND Psychiatry & Neurology Psychiatry | DX: F12.20 Cannabis dependence, uncomplicated (principal) ==

== ENCOUNTER → 2017-02-24 | Outpatient (CLI) | payer OTHER ==
--- NOTE | 2017-03-16 00:04 | ECWPNPC ---
PATIENT NAME: NIKHIL IRVIN : 1970 GENDER: MALE VISIT DATE: 02/24/2017 DISCHARGE DATE: 02/24/17 1555 VISIT LOCKED DATE TIME: PHYSICIAN: OLMAN MAIER PHYSICIAN PAGER NO: TEXT TO [phone] RESOURCE: OLMAN MAIER REASON FOR APPOINTMENT 1. BACK PAIN HISTORY OF PRESENT ILLNESS HISTORY OF PRESENT ILLNESS: PAIN THE PATIENT DESCRIBES THE PAIN... FALL RISK SCREENING: SCREENING :NO FALLS IN THE PAST YEAR TODAY'S VISIT: NOTES: RATES PAIN LEVEL TODAY 7/10. DESCRIBES PAIN CONSTANT, ACHING,TENDER, SORE AND OCCASIONALLY STABBING. IS HAVING PAIN IN THE USUAL LOW BACK AND RIGHT BUTTUCK AREA AND ALSO IN THE NECK AND MIDBACK. CURRENT MEDICATIONS TAKING OXYBUTYNIN CHLORIDE 5 MG TABLET 1 TABLET ORALLY TWICE A DAY TAKING TENS UNIT ELECTRO PADS ONE SET WITH FOUR PADS GEL PADS MAY USE TRANSDERMAL EVERY OTHER DAY DX:722.73 TAKING ALBUTEROL SULFATE HFA 108 (90 BASE) MCG/ACT AEROSOL SOLUTION 2 PUFFS NEEDED INHALATION EVERY 4 HRS PRN TAKING METHOCARBAMOL 750 MG TABLET 1 TABLET ORALLY EVERY 8 HRS TAKING NABUMETONE 750 MG TABLET 2 TABLET ORALLY IN THE AM, ALWAYS TAKE WITH FOOD TAKING HEATING PAD MOIST/DRY - PAD 12 EXTERNALLY. 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 CONSTITUTIONAL: ANY CHANGE IN YOUR MEDICAL CONDITION? NO . CHILLS NO . FEVER NO . INFECTION: DO YOU HAVE NEW INFECTIONS? NO . DO YOU HAVE HISTORY OF MRSA? NO . MUSCULOSKELETAL: ANY NEW PATTERNS OF PAIN OR NUMBNESS? YES SHOULDERS AND ARMS . GASTROENTEROLOGY: ANY NEW CHANGE IN BOWEL CONTROL? NO . GENITOURINARY: ANY NEW CHANGE IN BLADDER CONTROL? NO . IS THERE A CHANCE YOU COULD BE ? NO . HEMATOLOGY/LYMPH: DO YOU TAKE ANY BLOOD THINNERS? (FOR EXAMPLE- COUMADIN, PLAVIX, AGGRENOX, PLATEL, PRADAXA, OR XARELTO) NO . WHEN WAS YOUR LAST DOSE? DATE: TIME: . NEUROLOGY: HAVE YOU FALLEN IN THE PAST 6 MONTHS? NO . ANY NEW EXTREMITY NUMBNESS OR WEAKNESS? NO . CARDIOLOGY: DO YOU HAVE A PACEMAKER OR DEFIBRILLATOR? NO . RESPIRATORY: HAVE YOU BEEN SICK IN THE PAST WEEK? NO . FEVER NO . FLU LIKE SYMPTOMS? NO . COUGH NO . INTEGUMENTARY: DO YOU HAVE ANY RASHES OR OPEN SORES? NO . ALLERGIC/IMMUNO: ARE YOU ALLERGIC TO SHELLFISH OR IV DYE? NO . ANY NEW ALLERGIES? NO . PSYCHIATRIC: DO YOU HAVE THOUGHTS OF HURTING YOURSELF OR SOMEONE ELSE? NO . ARE YOU ABUSED, NEGLECTED, OR IN AN UNSAFE ENVIRONMENT? NO . ENDOCRINOLOGY: ARE YOU DIABETIC? NO . OTHER: DO YOU NEED ANY PRESCRIPTIONS? YES LYRICA . IF YES, PLEASE LIST: ____ . ANY NEW PROBLEMS WITH YOUR MEDICATIONS? NO . WHEN DID YOU LAST EAT? ____ . WHEN DID YOU LAST DRINK? ____ . WHAT DID YOU LAST DRINK? ____ . NAME OF PERSON DRIVING YOU HOME? ____ . DO YOU HAVE ANY OTHER QUESTIONS OR CONCERNS NO . VITAL SIGNS WT 170.4 LBS, HT 69 IN, BMI 25.16 INDEX, BP 110/63 MM HG, HR 58 /MIN, RR 16 /MIN, TEMP 97.7 F, OXYGEN SAT % 96%, NA INITIALS SC 15:29. EXAMINATION GENERAL EXAMINATION: PSYCHALERT , APPROPRIATE MOOD AND AFFECT , ORIENTED X 3 . LUNGS:CLEAR TO AUSCULTATION BILATERALLY. HEART:HEART RATE REGULAR, RAPID. MUSCULOSKELETAL:PALPATION: POSITIVE FOR PAIN OVER LUMBAR SPINOUS PROCESSESS AND ACROSS THE LUMBOSACRAL AXIS. POINT TENDERNESS OVER RIGHT SACRAL ILIAC JOINT AND RIGHT PIRIFORMIS REGION. TRIGGER POINTS AND TIGHT FIBROUS BANDS:, ELICITED WITH PALPATION OVER LUMBAR PARAVERTEBRAL MUSCLES AND INTO THE SACRUM. RESTRICTION OF ROM IN THIS AREA. CANE USED FOR BALANCE. SLOW TO RISE TO STANDING POSITION. GAIT WIDEBASED, ANTALGIC. ASSESSMENTS MYALGIA - M79.1 (PRIMARY) LUMBAR DISC DISPLACEMENT WITHOUT MYELOPATHY - M51.26 LUMBAR RADICULOPATHY - M54.16 FIBROMYALGIA - M79.7 TREATMENT MYALGIA REFILL LYRICA CAPSULE, 200 MG, 1 CAPSULE, ORALLY, Q 8 HRS MDD=3, 30 DAY(S), 90, REFILLS 5 NOTES: OK TO USE VOLTAREN GEL IF AVAILABLETAKE MRI DISC TO SURGEON APPOINTMENT. [facility] REASON:LUMBAR DISC DISPLACEMNT - WITH SURGERY PREVIOUS SCHED WITH DR HERNANDEZ - WOULD LIKE TO CONTINUE TO PURSUE FUSION SURGERY FOR PAIN RELIEF PROCEDURE CODES FA211 ESTABILISHED PATIENT [facility] FACILITY CHARGE DISPOSITION & COMMUNICATION FOLLOW UP 2 MONTHS (REASON: BACK PAIN) ELECTRONICALLY SIGNED BY KATI GLALARDO ON 03/15/2017 AT 04:24 PM EST DISCLAIMER : THIS IS A VISIT SUMMARY EXTRACTED FROM THE [employer] CHART. IT IS NOT A COPY OF THE [employer] PROGRESS NOTE. JV
== END ==
LOC: M PAIN 15:00
PROVIDERS: ATTEND Nurse Practitioner Family
DX: G89.29 Other chronic pain (principal); M51.26 Other intervertebral disc displacement, lumbar region; M54.16 Radiculopathy, lumbar region; M79.7 Fibromyalgia; E55.9 Vitamin D deficiency, unspecified; F41.1 Generalized anxiety disorder; F32.89 Other specified depressive episodes; J43.9 Emphysema, unspecified; F10.21 Alcohol dependence, in remission; Z91.018 Allergy to other foods; Z79.891 Long term (current) use of opiate analgesic; Z79.01 Long term (current) use of anticoagulants; Z79.899 Other long term (current) drug therapy

== ENCOUNTER → 2017-03-02 | Outpatient (CLI) | payer OTHER | LOC: M LAB 12:57 | PROVIDERS: ATTEND Family Medicine | DX: E55.9 Vitamin D deficiency, unspecified (principal) ==

== ENCOUNTER → 2017-05-07 | Outpatient (CLI) | payer OTHER | LOC: M PAIN 14:15 | DX: M79.1 Myalgia (principal); M51.26 Other intervertebral disc displacement, lumbar region; M54.16 Radiculopathy, lumbar region; J44.9 Chronic obstructive pulmonary disease, unspecified; K43.6 Other and unspecified ventral hernia with obstruction, without gangrene; J30.1 Allergic rhinitis due to pollen; J30.89 Other allergic rhinitis; F10.21 Alcohol dependence, in remission; F17.210 Nicotine dependence, cigarettes, uncomplicated; Z79.899 Other long term (current) drug therapy; Z87.898 Personal history of other specified conditions; Z91.018 Allergy to other foods; Z91.030 Bee allergy status | CPT/HCPCS: G0463 ==

== ENCOUNTER → 2017-05-11 | Outpatient (CLI) | payer OTHER | LOC: M PLARAD 14:26 | DX: M47.812 Spondylosis without myelopathy or radiculopathy, cervical region (principal); M50.21 Other cervical disc displacement, high cervical region; R51 Headache; M54.81 Occipital neuralgia | CPT/HCPCS: 70551 ==

== ENCOUNTER → 2017-05-26 | Outpatient (CLI) | payer OTHER ==
[~2017-05-26] MED LIST changes: -/TIZA4TA PO; +BUPIVACAINE HCL 0.25% 10 ML VIAL As Ordered; +BUPIVACAINE HCL 0.25% 30 ML VIAL As Ordered; -BUSP30TA PO; -CITA20TA4 PO; -GABA300C2 PO; -LYRI225C PO; -LYRI75CA PO; -MOBI15TA PO; -OXYB5TAB10 PO; -PREG100CA PO; -ROBA750T4 PO; -SAVE50TA PO; -TRIA1CR TOP; +TRIAMCINOLONE ACETONIDE SUSP 40 MG/ML VIAL (J3301) As Ordered; -VICO5TAB OR; -VOLT1GEL2 TD; -[UNRECOGNIZED DRUG - OTHER]; -baby aspirin PO; +diazePAM 5 MG TAB As Ordered; +oxyCODONE 5MG TAB As Ordered
== END | disposition home or self-care (01) ==
LOC: M PAIN 13:45
DX: G89.29 Other chronic pain (principal); M79.1 Myalgia; J44.9 Chronic obstructive pulmonary disease, unspecified; E55.9 Vitamin D deficiency, unspecified; M46.1 Sacroiliitis, not elsewhere classified; F10.21 Alcohol dependence, in remission; K43.9 Ventral hernia without obstruction or gangrene; Z79.899 Other long term (current) drug therapy; Z91.018 Allergy to other foods; Z91.030 Bee allergy status; J30.2 Other seasonal allergic rhinitis; F17.210 Nicotine dependence, cigarettes, uncomplicated
CPT/HCPCS: J3301

== ENCOUNTER → 2017-06-10 | Outpatient (CLI) | payer OTHER | LOC: M PAIN 13:15 | DX: M79.1 Myalgia (principal); M51.26 Other intervertebral disc displacement, lumbar region; M54.16 Radiculopathy, lumbar region; J44.9 Chronic obstructive pulmonary disease, unspecified; F17.210 Nicotine dependence, cigarettes, uncomplicated; Z79.899 Other long term (current) drug therapy; Z91.030 Bee allergy status; Z91.018 Allergy to other foods; J30.2 Other seasonal allergic rhinitis | CPT/HCPCS: G0463 ==

== ENCOUNTER → 2017-06-16 | Outpatient (REF) | LOC: M SMT 09:49 | DX: M54.5 Low back pain (principal) ==

== ENCOUNTER → 2017-06-30 | Outpatient (CLI) | payer OTHER | LOC: M PAIN 14:30 | DX: G89.29 Other chronic pain (principal); M79.1 Myalgia; M54.2 Cervicalgia; M54.6 Pain in thoracic spine; M54.5 Low back pain; J44.9 Chronic obstructive pulmonary disease, unspecified; K43.9 Ventral hernia without obstruction or gangrene; F10.10 Alcohol abuse, uncomplicated; F17.210 Nicotine dependence, cigarettes, uncomplicated; Z79.899 Other long term (current) drug therapy; Z91.030 Bee allergy status; Z91.018 Allergy to other foods | CPT/HCPCS: J3301 ==

== ENCOUNTER → 2017-06-30 | Outpatient (CLI) | payer OTHER | LOC: M RAD 17:56 | DX: M47.892 Other spondylosis, cervical region (principal); M25.78 Osteophyte, vertebrae; M51.36 Other intervertebral disc degeneration, lumbar region; M51.37 Other intervertebral disc degeneration, lumbosacral region | CPT/HCPCS: 72052 ==

== ENCOUNTER → 2017-07-14 | Outpatient (CLI) | payer OTHER | LOC: M PAIN 13:15 | DX: M79.1 Myalgia (principal); M51.26 Other intervertebral disc displacement, lumbar region; M54.16 Radiculopathy, lumbar region; J43.9 Emphysema, unspecified; K43.9 Ventral hernia without obstruction or gangrene; F10.10 Alcohol abuse, uncomplicated; F17.210 Nicotine dependence, cigarettes, uncomplicated; Z79.899 Other long term (current) drug therapy; Z91.018 Allergy to other foods; Z91.030 Bee allergy status | CPT/HCPCS: G0463 ==

== ENCOUNTER → 2017-08-04 | Outpatient (CLI) | payer OTHER | END | disposition home or self-care (01) | LOC: M PAIN 13:45 | DX: G89.29 Other chronic pain (principal); M79.1 Myalgia; J44.9 Chronic obstructive pulmonary disease, unspecified; E55.9 Vitamin D deficiency, unspecified; M46.1 Sacroiliitis, not elsewhere classified; Z79.899 Other long term (current) drug therapy; F17.210 Nicotine dependence, cigarettes, uncomplicated; Z91.018 Allergy to other foods; Z91.030 Bee allergy status; J30.2 Other seasonal allergic rhinitis | CPT/HCPCS: J3301 ==

== ENCOUNTER → 2017-09-03 | Outpatient (CLI) | payer OTHER | LOC: M PAIN 11:45 | DX: M79.1 Myalgia (principal); M51.26 Other intervertebral disc displacement, lumbar region; M54.16 Radiculopathy, lumbar region; J43.8 Other emphysema; K43.9 Ventral hernia without obstruction or gangrene; F10.10 Alcohol abuse, uncomplicated; Z79.891 Long term (current) use of opiate analgesic; Z79.899 Other long term (current) drug therapy; Z91.018 Allergy to other foods; Z91.030 Bee allergy status; Z87.891 Personal history of nicotine dependence | CPT/HCPCS: G0463 ==

== ENCOUNTER → 2017-10-10 | Outpatient (CLI) | payer OTHER ==
[2017-10-10 12:10] LABS: BASO % 0.3 % (0.0-1.0); EOS # 0.2 10^3/uL (0.0-0.50); EOS % 1.9 % (0.0-3.0); HEMATOCRIT 40.1 % (42.0-52.0); IMMATURE GRANULOCYTE % 0.3 % (0-3.0); LYMPH # 1.7 10^3/uL (1.5-4.5); LYMPH % 17.1 % (24.0-44.0); MEAN CORPUSCULAR HEMOGLOBIN 31.5 pg (27.0-33.0); MEAN CORPUSCULAR HGB CONC 34.9 g/dl (32.0-36.5); MEAN CORPUSCULAR VOLUME 90.1 fl (80.0-96.0); MONO # 0.8 10^3/uL (0.0-0.8); MONO % 7.8 % (0.0-5.0); NEUTROPHILS # 7.1 10^3/uL (1.8-7.7); NEUTROPHILS % 72.6 % (36.0-66.0); PLATELET COUNT, AUTOMATED 266 10^3/uL (150-450); RED BLOOD COUNT 4.45 10^6/uL (4.30-6.10); RED CELL DISTRIBUTION WIDTH 12.9 % (11.5-14.5); WHITE BLOOD COUNT 9.7 10^3/uL (4.0-10.0)
[2017-10-10 12:21] LABS: INR 0.96; PARTIAL THROMBOPLASTIN TIME 28.9 SECONDS (25.4-37.6); PROTHROMBIN TIME 12.9 SECONDS (12.1-14.4)
[2017-10-10 12:37] LABS: ALBUMIN 3.5 GM/DL (3.2-5.2); ALKALINE PHOSPHATASE 74 U/L (45-117); ALT/SGPT 23 U/L (12-78); ANION GAP 5 MEQ/L (8-16); AST/SGOT 22 U/L (7-37); BILIRUBIN,TOTAL 0.7 MG/DL (0.2-1.0); BLOOD UREA NITROGEN 10 MG/DL (7-18); CALCIUM LEVEL 8.2 MG/DL (8.5-10.1); CARBON DIOXIDE LEVEL 28 MEQ/L (21-32); CHLORIDE LEVEL 109 MEQ/L (98-107); CREATININE FOR GFR 0.97 MG/DL (0.70-1.30); GLOMERULAR FILTRATION RATE > 60.0 (>60); GLUCOSE, FASTING 115 MG/DL (70-100); POTASSIUM SERUM 3.7 MEQ/L (3.5-5.1); SODIUM LEVEL 142 MEQ/L (136-145); TOTAL PROTEIN 6.2 GM/DL (6.4-8.2)
[2017-10-10 12:44] LABS: COLLAGEN EPINEPHRINE 82 SECONDS (74-162)
== END ==
LOC: M LAB 11:07
DX: Z01.818 Encounter for other preprocedural examination (principal)
CPT/HCPCS: 71046

== ENCOUNTER → 2017-10-15 | Outpatient (CLI) | payer OTHER | LOC: M PAIN 14:00 | DX: M79.1 Myalgia (principal); M51.26 Other intervertebral disc displacement, lumbar region; M54.16 Radiculopathy, lumbar region; J44.9 Chronic obstructive pulmonary disease, unspecified; K44.9 Diaphragmatic hernia without obstruction or gangrene; F17.210 Nicotine dependence, cigarettes, uncomplicated; Z79.51 Long term (current) use of inhaled steroids; Z79.899 Other long term (current) drug therapy; Z91.030 Bee allergy status; Z91.018 Allergy to other foods; Z86.59 Personal history of other mental and behavioral disorders | CPT/HCPCS: G0463 ==

== ENCOUNTER → 2017-10-19 | Outpatient (REF) | payer OTHER ==
[2017-10-27 15:32] LABS: HLA-B27 Negative (.)
== END ==
LOC: M SFHCPLAZ 16:05
DX: M51.16 Intervertebral disc disorders with radiculopathy, lumbar region (principal)

== ENCOUNTER 2018-01-11 12:42 | Outpatient (RCR) | payer OTHER | END 2018-01-27 | LOC: M PT 12:42 | DX: Z51.89 Encounter for other specified aftercare (principal); M54.5 Low back pain | CPT/HCPCS: 97010 ==

== ENCOUNTER → 2018-01-13 | Outpatient (CLI) | payer OTHER | LOC: M PAIN 14:15 | DX: M79.7 Fibromyalgia (principal); M51.26 Other intervertebral disc displacement, lumbar region; M54.16 Radiculopathy, lumbar region; J44.9 Chronic obstructive pulmonary disease, unspecified; K43.9 Ventral hernia without obstruction or gangrene; J30.89 Other allergic rhinitis; E55.9 Vitamin D deficiency, unspecified; F10.10 Alcohol abuse, uncomplicated; Z79.51 Long term (current) use of inhaled steroids; Z79.899 Other long term (current) drug therapy; Z91.018 Allergy to other foods; Z91.030 Bee allergy status; Z87.891 Personal history of nicotine dependence | CPT/HCPCS: G0463 ==

== ENCOUNTER 2018-01-28 12:48 | Outpatient (RCR) | payer OTHER | END 2018-02-26 | LOC: M PT 02-02 12:48 | DX: M54.5 Low back pain (principal) | CPT/HCPCS: 97010 ==

== ENCOUNTER 2018-02-23 14:34 | Emergency (ER) | payer OTHER, MEDICAID ==
[2018-02-23 15:58] LABS: BASO % 0.4 % (0.0-1.0); EOS # 0.3 10^3/uL (0.0-0.50); EOS % 2.9 % (0.0-3.0); HEMATOCRIT 41.1 % (42.0-52.0); IMMATURE GRANULOCYTE % 0.3 % (0-3.0); LYMPH # 1.9 10^3/uL (1.5-4.5); LYMPH % 20.3 % (24.0-44.0); MEAN CORPUSCULAR HEMOGLOBIN 28.9 pg (27.0-33.0); MEAN CORPUSCULAR HGB CONC 34.1 g/dl (32.0-36.5); MEAN CORPUSCULAR VOLUME 84.9 fl (80.0-96.0); MONO # 1.1 10^3/uL (0.0-0.8); MONO % 11.1 % (0.0-5.0); NEUTROPHILS # 6.2 10^3/uL (1.8-7.7); PLATELET COUNT, AUTOMATED 246 10^3/uL (150-450); RED BLOOD COUNT 4.84 10^6/uL (4.30-6.10); WHITE BLOOD COUNT 9.6 10^3/uL (4.0-10.0)
[2018-02-23] MEDS: NS 1,000 ML IV (16:10)
[2018-02-23] MEDS: ONDANSETRON 4MG/2ML VIAL (J2405) IV (16:10)
[2018-02-23] MEDS: MORPHINE 2 MG/ML 1ML SYRINGE (J2270) IV (16:11)
[2018-02-23 16:16] LABS: ANION GAP 5 MEQ/L (8-16); BLOOD UREA NITROGEN 14 MG/DL (7-18); CALCIUM LEVEL 8.3 MG/DL (8.5-10.1); CARBON DIOXIDE LEVEL 30 MEQ/L (21-32); CHLORIDE LEVEL 105 MEQ/L (98-107); CPK CREATINE PHOSPHOKINASE 888 U/L (39-308); CREATININE FOR GFR 0.99 MG/DL (0.70-1.30); GLOMERULAR FILTRATION RATE > 60.0 (>60); GLUCOSE, FASTING 98 MG/DL (70-100); MB/CK RELATIVE INDEX 0.26 (< OR =4); POTASSIUM SERUM 4.3 MEQ/L (3.5-5.1); SODIUM LEVEL 140 MEQ/L (136-145); TROPONIN I < 0.02 NG/ML (< 0.10)
[2018-02-23] MEDS ORDERED: ISOVUE-370 76% 100ML VIAL (Q9967) As Ordered (16:32)
== END 2018-02-23 19:09 | disposition home or self-care (01) ==
LOC: M ED 14:34
DX: S20.211A Contusion of right front wall of thorax, initial encounter (principal); S20.212A Contusion of left front wall of thorax, initial encounter; S05.11XA Contusion of eyeball and orbital tissues, right eye, initial encounter; S05.12XA Contusion of eyeball and orbital tissues, left eye, initial encounter; J90 Pleural effusion, not elsewhere classified; I77.4 Celiac artery compression syndrome; J44.9 Chronic obstructive pulmonary disease, unspecified; Z87.891 Personal history of nicotine dependence; Y04.8XXA Assault by other bodily force, initial encounter; Y92.098 Other place in other non-institutional residence as the place of occurrence of the external cause; Z88.8 Allergy status to other drugs, medicaments and biological substances; Z79.899 Other long term (current) drug therapy
CPT/HCPCS: J2405

== ENCOUNTER → 2018-03-29 | Outpatient (RCR) | payer OTHER ==
[~2018-03-29] MED LIST changes: +/TIZA4TA PO; +Acetaminophen Tab PO; -BUPIVACAINE HCL 0.25% 10 ML VIAL As Ordered; -BUPIVACAINE HCL 0.25% 30 ML VIAL As Ordered; +BUSP30TA PO; +CIPR-250 PO; +CITA20TA4 PO; +GABA300C2 PO; +HYDR-3363 PO; +HYDR50TA70 PO; +INCR1INH; +LYRI225C PO; +LYRI75CA PO; +METH75TA PO; +MOBI15TA PO; +NABU-119 PO; +NORCOTAB PO; +OXYB5TAB10 PO; +PREG100CA PO; +ROBA750T4 PO; +SAVE50TA PO; +TRIA1CR TOP; -TRIAMCINOLONE ACETONIDE SUSP 40 MG/ML VIAL (J3301) As Ordered; +VALI5TAB PO; +VENL75CA47 PO; +VENL75TA2 PO; +VICO5TAB OR; +VOLT1GEL2 TD; +[UNRECOGNIZED DRUG - OTHER]; +baby aspirin PO; -diazePAM 5 MG TAB As Ordered; -oxyCODONE 5MG TAB As Ordered
== END ==
LOC: M PT 03-04 13:38
PROVIDERS: ATTEND Student in an Organized Health Care Education/Training Program
DX: M54.5 Low back pain (principal)

== ENCOUNTER → 2018-04-15 | Outpatient (CLI) | payer OTHER ==
--- NOTE | 2018-04-30 02:07 | ECWPNPC ---
PATIENT NAME: NIKHIL IRVIN : 1970 GENDER: MALE VISIT DATE: 04/15/2018 DISCHARGE DATE: 04/15/18 1329 VISIT LOCKED DATE TIME: PHYSICIAN: ASHLEY RUDOLPH RESOURCE: ASHLEY RUDOLPH REASON FOR APPOINTMENT 1. LOW BACK/NECK HISTORY OF PRESENT ILLNESS HISTORY OF PRESENT ILLNESS: HERE FOR CHRONIC LOW BACK PAIN AND GENERALIZED BACK PAIN.HAD BACK SURGERY September AND CONTINUES TO DO WELL POST SURGERY.RATING PAIN VAS 6/10.PAIN IS AGGREVATED BY PROLONGED STANDING.CURRENTLY USING LYRICA 200MG TID. PAIN THE PATIENT DESCRIBES THE PAIN... FALL RISK SCREENING: SCREENING :NO FALLS IN THE PAST YEAR CURRENT MEDICATIONS TAKING OXYBUTYNIN CHLORIDE 5 MG TABLET 1 TABLET ORALLY TWICE A DAY TAKING TENS UNIT ELECTRO PADS ONE SET WITH FOUR PADS GEL PADS MAY USE TRANSDERMAL EVERY OTHER DAY DX:722.73 TAKING HEATING PAD MOIST/DRY - PAD 12 EXTERNALLY. DX: M51.16 PRN TAKING EFFEXOR 75 MG TABLET 1 TABLET WITH FOOD ORALLY 2 TABS IN MORNING 1 AT NIGHT TAKING METHOCARBAMOL 750 MG TABLET 1 TABLET ORALLY EVERY 8 HRS TAKING HYDROXYZINE HCL 25 MG TABLET 1 TABLET ORALLY BID DURING THE DAY PRN ANXIETY/PAIN/SLEEP TAKING LYRICA 200 MG CAPSULE 1 CAPSULE ORALLY Q 8 HRS MDD=3 TAKING BUSPIRONE HCL 30 MG TABLET 1 TABLET ORALLY TWICE A DAY TAKING NABUMETONE 750 MG TABLET 2 TABLET ORALLY IN THE AM, ALWAYS TAKE WITH FOOD TAKING NICOTINE STEP 1 21 MG/24HR PATCH 24 HOUR 1 PATCH TO SKIN TRANSDERMAL ONCE A DAY TAKING VALIUM 5 MG TABLET 1 TABLET NEEDED ORALLY TWICE A DAY, MDD #2 TAKING INCRUSE ELLIPTA 62.5 MCG/INH AEROSOL POWDER BREATH ACTIVATED 1 PUFF INHALATION ONCE A DAY TAKING HYDROXYZINE HCL 50 MG TABLET 1 TABLET NEEDED ORALLY QHS PRN INSOMNIA TAKING ALBUTEROL SULFATE HFA 108 (90 BASE) MCG/ACT AEROSOL SOLUTION 2 PUFFS NEEDED INHALATION EVERY 4 HRS PRN MEDICATION LIST REVIEWED AND RECONCILED WITH THE PATIENT PAST MEDICAL HISTORY LUMBAGO FIBROMYALGIA COPD - EMPHYSEMA EPIGASTRIC HERNIA DUST AND POLLEN ALLERGIES VITAMIN D DEFICIENCY H/O TOBACCO ABUSE 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 SOCIAL HISTORY GENERAL: TOBACCO USE ARE YOU A:FORMER SMOKER USES VAPE WITHOUT NICOTINE HOW LONG HAS IT BEEN SINCE YOU LAST SMOKED?1-3 MONTHS ALCOHOL SCREENING DID YOU HAVE A DRINK CONTAINING ALCOHOL IN THE PAST YEAR?YES HOW OFTEN DID YOU HAVE SIX OR MORE DRINKS ON ONE OCCASION IN THE PAST YEAR?LESS THAN MONTHLY (1 POINT) HOW MANY DRINKS DID YOU HAVE ON A TYPICAL DAY WHEN YOU WERE DRINKING IN THE PAST YEAR?1 OR 2 (0 POINTS) HOW OFTEN DID YOU HAVE A DRINK CONTAINING ALCOHOL IN THE PAST YEAR?MONTHLY OR LESS (1 POINT) POINTS2 INTERPRETATIONNEGATIVE RECREATIONAL DRUG USE DRUG USE?NO CAFFEINE CAFFEINE USE?YES HOW OFTEN AND HOW MUCH? 8 CUPS/ DAY AND 3 CUPS SODA/DAY SEXUAL HX HAD SEX IN THE LAST 12 MONTHS (VAGINAL, ORAL, OR ANAL)?NO HAVE YOU EVER HAD AN STD?NO HIV / HEP-C SCREENING HIV TEST OFFERED TO PATIENT:YES DATE OFFERED:10/08/2017 TEST ACCEPTED:NO HEP-C TEST OFFERED TO PATIENT:YES DATE OFFERED:10/08/2017 REASON:PATIENT DECLINED TEST ACCEPTED:NO REASON:PATIENT DECLINED BROCHURE PROVIDED TO PATIENTNO ZOROASTRIANISM [id number] NONE NO BUDDHIST BELIEFS THAT WOULD IMPACT HEALTH CARE. LANGUAGE LANGUAGES SPOKEN:[place] EDUCATION LEVEL OF EDUCATION:HIGH SCHOOL GED LEARNING BARRIERS / SPECIAL NEEDS CHANGE FROM LAST VISIT?NO BARRIERS TO LEARNING?NO HEARING IMPAIRED?NO VISION IMPAIRED?YES COGNITIVELY IMPAIRED?NO :CORRECTIVE LENSES READING GLASSES READINESS TO LEARN?YES LEARNING PREFERENCES?NO LEARNING CAPABILITIES PRESENT?YES EMOTIONAL BARRIERS?NO SPECIAL DEVICES?YES :CANE ANNOUNCER NEEDED?NO DOMESTIC VIOLENCE DO YOU FEEL SAFE IN YOUR ENVIRONMENT?YES DIET: REGULAR. EXERCISE: NO REGULAR EXERCISE, INTERMITTENT, DAILY, WALKS. MARITAL STATUS: . NEW PATIENT PAIN DIARY TODAY'S VISITNOTES FROM 0-10, WHAT LEVEL IS YOUR PAIN TODAY?6 PAIN CLINIC PFS, CLERGY, PUBLIC HEALTH REFERRALS PFS REFERRAL NEEDED?NO CLERGY REFERRAL NEEDED?NO PUBLIC HEALTH REFERRAL NEEDED?NO WAS THE PROVIDER NOTIFIED OF ANY PERTINENT INFO?YES N/A HAS THE PATIENT BEEN EDUCATED REGARDING HIS/HER PLAN OF CARE?YES HAS THE PATIENT BEEN EDUCATED REGARDING PAIN, THE RISK FOR PAIN, THE IMPORTANCE OF EFFECTIVE PAIN MANAGEMENT, AND THE PAIN ASSESSMENT PROCESS?YES ADVANCE DIRECTIVE ADVANCE DIRECTIVE DISCUSSED WITH PATIENT:YES DECLINES INFORMATION REVIEWED 06/30/17 1545 LASREVIEWED 07/14/17 1313 BVREVIEWED WITH PATIENT 01/13/18 1445 JS. HOSPITALIZATION/MAJOR DIAGNOSTIC PROCEDURE APPENDICITIS (APPARENTLY MEDICALLY MANAGED) 1983 ALLERGIC REACTION FROM CUCUMBER WITH MOSOTHO DRESSING ON IT 1985 SURGERY RELATED 2018 REVIEW OF SYSTEMS REVIEWED BY: PROVIDER: ASHLEY STUART . CONSTITUTIONAL: ANY CHANGE IN YOUR MEDICAL CONDITION? NO . CHILLS NO . FEVER NO . INFECTION: DO YOU HAVE NEW INFECTIONS? NO . DO YOU HAVE HISTORY OF MRSA? NO . MUSCULOSKELETAL: ANY NEW PATTERNS OF PAIN OR NUMBNESS? YES, BILAT LEG PAIN AND NUMBNESS X 3 WEEKS . GASTROENTEROLOGY: ANY NEW CHANGE IN BOWEL CONTROL? NO . GENITOURINARY: ANY NEW CHANGE IN BLADDER CONTROL? NO . IS THERE A CHANCE YOU COULD BE ? NO . HEMATOLOGY/LYMPH: DO YOU TAKE ANY BLOOD THINNERS? (FOR EXAMPLE- COUMADIN, PLAVIX, AGGRENOX, PLATEL, PRADAXA, OR XARELTO) NO . WHEN WAS YOUR LAST DOSE? DATE: TIME: . NEUROLOGY: HAVE YOU FALLEN IN THE PAST 12 MONTHS? NO . ANY NEW EXTREMITY NUMBNESS OR WEAKNESS? YES, BILAT LEGS . CARDIOLOGY: DO YOU HAVE A PACEMAKER OR DEFIBRILLATOR? NO . RESPIRATORY: HAVE YOU BEEN SICK IN THE PAST WEEK? NO . FEVER NO . FLU LIKE SYMPTOMS? NO . COUGH NO . INTEGUMENTARY: DO YOU HAVE ANY RASHES OR OPEN SORES? NO . ALLERGIC/IMMUNO: ARE YOU ALLERGIC TO IV DYE? NO . ANY NEW ALLERGIES? NO . PSYCHIATRIC: DO YOU HAVE THOUGHTS OF HURTING YOURSELF OR SOMEONE ELSE? NO . ARE YOU ABUSED, NEGLECTED, OR IN AN UNSAFE ENVIRONMENT? NO . ENDOCRINOLOGY: ARE YOU DIABETIC? NO . OTHER: DO YOU NEED ANY PRESCRIPTIONS? NO . IF YES, PLEASE LIST: ____ . ANY NEW PROBLEMS WITH YOUR MEDICATIONS? NO . WHEN DID YOU LAST EAT? ____ . WHEN DID YOU LAST DRINK? ____ . WHAT DID YOU LAST DRINK? ____ . NAME OF PERSON DRIVING YOU HOME? ____ . DO YOU HAVE ANY OTHER QUESTIONS OR CONCERNS NO . VITAL SIGNS WT 179 LBS, HT 69 IN, BMI 26.43 INDEX, BP 123/73 MM HG, HR 65 /MIN, RR 18 /MIN, TEMP 98.1 F, OXYGEN SAT % 97%, NA INITIALS AW 1309, REVIEWED BY: BRITT. EXAMINATION GENERAL EXAMINATION: GENERAL APPEARANCE:AWAKE,ALERT ,PLEAASANT . PSYCHAFFECT NORMAL . LUNGS:LUNG RAPP ARE CLEAR TO AUSCULTATION BILATERALLY. GOOD MOVEMENT OF AIR . HEART:S1, S2 IN A REGULAR RATE AND RHYTHM. NO SIGNIFICANT MURMURS, RUBS OR GALLOPS NOTED . ASSESSMENTS LUMBAR DISC DISPLACEMENT WITHOUT MYELOPATHY - M51.26 TREATMENT LUMBAR DISC DISPLACEMENT WITHOUT MYELOPATHY CONTINUE LYRICA CAPSULE, 200 MG, 1 CAPSULE, ORALLY, Q 8 HRS MDD=3 CONTINUE HYDROXYZINE HCL TABLET, 25 MG, 1 TABLET, ORALLY, BID DURING THE DAY PRN ANXIETY/PAIN/SLEEP CONTINUE METHOCARBAMOL TABLET, 750 MG, 1 TABLET, ORALLY, EVERY 8 HRS PROCEDURE CODES FA211 ESTABILISHED PATIENT [facility] FACILITY CHARGE DISPOSITION & COMMUNICATION FOLLOW UP 8-12 WEEKS ELECTRONICALLY SIGNED BY NARCISO FISHER ON 04/29/2018 AT 03:03 PM EST DISCLAIMER : THIS IS A VISIT SUMMARY EXTRACTED FROM THE [employer] CHART. IT IS NOT A COPY OF THE [employer] PROGRESS NOTE. MTDD
== END ==
LOC: M PAIN 13:30
PROVIDERS: ATTEND Nurse Practitioner Family
DX: M51.26 Other intervertebral disc displacement, lumbar region (principal); G89.29 Other chronic pain; M79.7 Fibromyalgia; J44.9 Chronic obstructive pulmonary disease, unspecified; K43.9 Ventral hernia without obstruction or gangrene; E55.9 Vitamin D deficiency, unspecified; F10.10 Alcohol abuse, uncomplicated; F17.290 Nicotine dependence, other tobacco product, uncomplicated; Z79.51 Long term (current) use of inhaled steroids; Z79.899 Other long term (current) drug therapy; Z91.018 Allergy to other foods; Z91.030 Bee allergy status

== ENCOUNTER → 2018-04-29 | Outpatient (RCR) | payer OTHER | LOC: M PT 04-13 13:29 | PROVIDERS: ATTEND Student in an Organized Health Care Education/Training Program | DX: M54.5 Low back pain (principal) ==

== ENCOUNTER 2018-05-05 13:31 | Outpatient (RCR) | payer OTHER | END 2018-05-27 | LOC: M PT 13:31 | PROVIDERS: ATTEND Student in an Organized Health Care Education/Training Program | DX: Z51.89 Encounter for other specified aftercare (principal); Z98.890 Other specified postprocedural states; M54.5 Low back pain ==

== ENCOUNTER → 2018-12-17 | Outpatient (CLI) | payer OTHER ==
[~2018-12-17] MED LIST changes: -/TIZA4TA PO; +ACET-683 PO; +AUGM875T28 PO; -CITA20TA4 PO; +CITA20TA6 PO; +HYDR-3715 PO; +IBUP-1022 PO; +MAGICMW SSP; +METH750T2 PO; -METH75TA PO; -NORCOTAB PO; +TIZA1TAB19 PO; +TRIA0.1C60 TOP; -TRIA1CR TOP
--- NOTE | 2018-12-21 00:45 | ECWPNPC ---
PATIENT NAME: NIKHIL IRVIN : 1970 GENDER: MALE VISIT DATE: 12/17/2018 DISCHARGE DATE: 12/17/18 1438 VISIT LOCKED DATE TIME: PHYSICIAN: JUDI OSULLIVAN RESOURCE: JUDI OSULLIVAN REASON FOR APPOINTMENT 1. BACK/NECK HISTORY OF PRESENT ILLNESS HISTORY OF PRESENT ILLNESS: PAIN THE PATIENT DESCRIBES THE PAIN... 48-YEAR-OLD MALE IN FOR CHRONIC PAIN FOLLOW-UP. HE DOES FEEL LYRICA IS HELPFUL IN MANAGING HIS PAIN. HE RATES HIS PAIN CURRENTLY AT A 7 OUT OF 10 AND DESCRIBES IT ACHING, SHARP, BURNING, SORE, SHOOTING, AND TENDER. HE WOULD LIKE TO DISCUSS THE ADDITION OF MEDICATIONS TO HELP BETTER MANAGE HIS PAIN. FALL RISK SCREENING: SCREENING :NO FALLS REPORTED IN THE LAST YEAR CURRENT MEDICATIONS TAKING OXYBUTYNIN CHLORIDE 5 MG TABLET 1 TABLET ORALLY TWICE A DAY TAKING TENS UNIT ELECTRO PADS ONE SET WITH FOUR PADS GEL PADS MAY USE TRANSDERMAL EVERY OTHER DAY DX:722.73 TAKING HEATING PAD MOIST/DRY - PAD 12 EXTERNALLY. DX: M51.16 PRN TAKING EFFEXOR 75 MG TABLET 1 TABLET WITH FOOD ORALLY 2 TABS IN MORNING 1 AT NIGHT TAKING METHOCARBAMOL 750 MG TABLET 1 TABLET ORALLY EVERY 8 HRS TAKING BUSPIRONE HCL 30 MG TABLET 1 TABLET ORALLY TWICE A DAY TAKING HYDROXYZINE HCL 50 MG TABLET 1 TABLET NEEDED ORALLY QHS PRN INSOMNIA TAKING HYDROXYZINE HCL 25 MG TABLET 1 TABLET ORALLY BID DURING THE DAY PRN ANXIETY/PAIN/SLEEP TAKING NABUMETONE 750 MG TABLET 2 TABLET ORALLY IN THE AM, ALWAYS TAKE WITH FOOD TAKING ALBUTEROL SULFATE HFA 108 (90 BASE) MCG/ACT AEROSOL SOLUTION 2 PUFFS NEEDED INHALATION EVERY 4 HRS PRN TAKING VALIUM 5 MG TABLET 1 TABLET NEEDED ORALLY TWICE A DAY, MDD #2 TAKING NICOTINE STEP 1 21 MG/24HR PATCH 24 HOUR 1 PATCH TO SKIN TRANSDERMAL ONCE A DAY TAKING LYRICA 200 MG CAPSULE 1 CAPSULE ORALLY Q 8 HRS MDD=3 TAKING EFFEXOR XR 150 MG CAPSULE EXTENDED RELEASE 24 HOUR 1 CAPSULE WITH FOOD ORALLY ONCE A DAY NOT-TAKING INCRUSE ELLIPTA 62.5 MCG/INH AEROSOL POWDER BREATH ACTIVATED 1 PUFF INHALATION ONCE A DAY MEDICATION LIST REVIEWED AND RECONCILED WITH THE PATIENT PAST MEDICAL HISTORY LUMBAGO FIBROMYALGIA COPD - EMPHYSEMA, GOLD II/A PER SPIROMETRY 05/2017 EPIGASTRIC HERNIA DUST AND POLLEN ALLERGIES VITAMIN D DEFICIENCY TOBACCO USE 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 SOCIAL HISTORY GENERAL: TOBACCO USE ARE YOU A:FORMER SMOKER USES VAPE WITHOUT NICOTINE HOW LONG HAS IT BEEN SINCE YOU LAST SMOKED?1-3 MONTHS SMOKING CESSATION INFORMATION GIVEN PT ENCOURAGED TO QUIT. DS HIV / HEP-C SCREENING HIV TEST OFFERED TO PATIENT:YES DATE OFFERED:10/08/2017 TEST ACCEPTED:NO HEP-C TEST OFFERED TO PATIENT:YES DATE OFFERED:10/08/2017 REASON:PATIENT DECLINED TEST ACCEPTED:NO REASON:PATIENT DECLINED BROCHURE PROVIDED TO PATIENTNO EDUCATION LEVEL OF EDUCATION:HIGH SCHOOL GED DIET: REGULAR. LANGUAGE LANGUAGES SPOKEN:ZAMBIAN DOMESTIC VIOLENCE DO YOU FEEL SAFE IN YOUR ENVIRONMENT?YES NEW PATIENT PAIN DIARY TODAY'S VISITNOTES FROM 0-10, WHAT LEVEL IS YOUR PAIN TODAY?6 RECREATIONAL DRUG USE DRUG USE?NO EXERCISE: NO REGULAR EXERCISE, INTERMITTENT, DAILY, WALKS. LEARNING BARRIERS / SPECIAL NEEDS CHANGE FROM LAST VISIT?NO BARRIERS TO LEARNING?NO HEARING IMPAIRED?NO VISION IMPAIRED?YES COGNITIVELY IMPAIRED?NO :CORRECTIVE LENSES READING GLASSES READINESS TO LEARN?YES LEARNING PREFERENCES?NO LEARNING CAPABILITIES PRESENT?YES EMOTIONAL BARRIERS?NO SPECIAL DEVICES?YES :CANE SALES VENDOR NEEDED?NO PAIN CLINIC PFS, CLERGY, PUBLIC HEALTH REFERRALS PFS REFERRAL NEEDED?NO CLERGY REFERRAL NEEDED?NO PUBLIC HEALTH REFERRAL NEEDED?NO WAS THE PROVIDER NOTIFIED OF ANY PERTINENT INFO?YES N/A HAS THE PATIENT BEEN EDUCATED REGARDING HIS/HER PLAN OF CARE?YES HAS THE PATIENT BEEN EDUCATED REGARDING PAIN, THE RISK FOR PAIN, THE IMPORTANCE OF EFFECTIVE PAIN MANAGEMENT, AND THE PAIN ASSESSMENT PROCESS?YES LATEX QUESTIONNAIRE LATEX ALLERGY : HAVE YOU EVER DEVELOPED ANY TYPE OF REACTION AFTER HANDLING LATEX PRODUCTS SUCH RUBBER GLOVES, CONDOMS, DIAPHRAGMS, BALLOONS, SOCKS, OR UNDERWEAR?NO LATEX ALLERGY : HAVE YOU EVER DEVELOPED ANY TYPE OF REACTION DURING OR AFTER DENTAL APPOINTMENT, VAGINAL/RECTAL EXAMINATION, SURGICAL PROCEDURE, OR ANY OTHER EXPOSURE?NO LATEX RISK : HAVE YOU EVER HAD ANY DIFFICULTY BREATHING OR HIVES AFTER EATING OR HANDLING ANY FRUITS, OR VEGETABLES; SUCH KIWI, BANANAS, STONE FRUITS, OR CHESTNUTSNO LATEX RISK : DO YOU HAVE A PREVIOUS PERSONAL HISTORY OF MORE THAN NINE SURGERIES, SPINA BIFIDA, OR REPEATED CATHERIZATIONS? NO LATEX RISK : ARE YOU FREQUENTLY EXPOSED TO LATEX PRODUCTS IN YOUR OCCUPATION?NO DATE ASKED : 12/17/2018 CAFFEINE CAFFEINE USE?YES HOW OFTEN AND HOW MUCH? 8 CUPS/ DAY AND 3 CUPS SODA/DAY ADVANCE DIRECTIVE ADVANCE DIRECTIVE DISCUSSED WITH PATIENT:YES DECLINES INFORMATION LATTER-DAY [id number] NONE NO MANDAEISM BELIEFS THAT WOULD IMPACT HEALTH CARE. MARITAL STATUS: . ALCOHOL SCREENING DID YOU HAVE A DRINK CONTAINING ALCOHOL IN THE PAST YEAR?YES HOW OFTEN DID YOU HAVE SIX OR MORE DRINKS ON ONE OCCASION IN THE PAST YEAR?LESS THAN MONTHLY (1 POINT) HOW MANY DRINKS DID YOU HAVE ON A TYPICAL DAY WHEN YOU WERE DRINKING IN THE PAST YEAR?1 OR 2 (0 POINTS) HOW OFTEN DID YOU HAVE A DRINK CONTAINING ALCOHOL IN THE PAST YEAR?MONTHLY OR LESS (1 POINT) POINTS2 INTERPRETATIONNEGATIVE SEXUAL HX HAD SEX IN THE LAST 12 MONTHS (VAGINAL, ORAL, OR ANAL)?NO HAVE YOU EVER HAD AN STD?NO REVIEWED 06/30/17 1545 LASREVIEWED 07/14/17 1313 BVREVIEWED WITH PATIENT 01/13/18 1445 JS. HOSPITALIZATION/MAJOR DIAGNOSTIC PROCEDURE APPENDICITIS (APPARENTLY MEDICALLY MANAGED) 1983 ALLERGIC REACTION FROM CUCUMBER WITH PERSIAN DRESSING ON IT 1985 SURGERY RELATED 2018 REVIEW OF SYSTEMS REVIEWED BY: PROVIDER: ARMANDO STUART-Angella . CONSTITUTIONAL: ANY CHANGE IN YOUR MEDICAL CONDITION? NO . CHILLS NO . FEVER NO . INFECTION: DO YOU HAVE NEW INFECTIONS? NO . DO YOU HAVE HISTORY OF MRSA? NO . MUSCULOSKELETAL: ANY NEW PATTERNS OF PAIN OR NUMBNESS? YES, LEFT LEG NUMBNESS AND PAIN STARTS IN HIP AND RADIATES DOWN TO LEFT KNEE . GASTROENTEROLOGY: ANY NEW CHANGE IN BOWEL CONTROL? NO . GENITOURINARY: ANY NEW CHANGE IN BLADDER CONTROL? NO . IS THERE A CHANCE YOU COULD BE ? NO . HEMATOLOGY/LYMPH: DO YOU TAKE ANY BLOOD THINNERS? (FOR EXAMPLE- COUMADIN, PLAVIX, AGGRENOX, PLATEL, PRADAXA, OR XARELTO) NO . WHEN WAS YOUR LAST DOSE? DATE: TIME: . NEUROLOGY: HAVE YOU FALLEN IN THE PAST 12 MONTHS? YES, PT STATES THAT HE FELL WHILE AT HOME, NO INJURY, NO REPORT TO ED . ANY NEW EXTREMITY NUMBNESS OR WEAKNESS? NO . CARDIOLOGY: DO YOU HAVE A PACEMAKER OR DEFIBRILLATOR? NO . RESPIRATORY: HAVE YOU BEEN SICK IN THE PAST WEEK? NO . FEVER NO . FLU LIKE SYMPTOMS? NO . COUGH NO . INTEGUMENTARY: DO YOU HAVE ANY RASHES OR OPEN SORES? NO . ALLERGIC/IMMUNO: ARE YOU ALLERGIC TO IV DYE? NO . ANY NEW ALLERGIES? NO . PSYCHIATRIC: DO YOU HAVE THOUGHTS OF HURTING YOURSELF OR SOMEONE ELSE? PER PT NOT LATELY, 12/17/18 DS . ARE YOU ABUSED, NEGLECTED, OR IN AN UNSAFE ENVIRONMENT? NO . ENDOCRINOLOGY: ARE YOU DIABETIC? NO . OTHER: DO YOU NEED ANY PRESCRIPTIONS? LYRICA 200MG . IF YES, PLEASE LIST: ____ . ANY NEW PROBLEMS WITH YOUR MEDICATIONS? NO . WHEN DID YOU LAST EAT? ____ . WHEN DID YOU LAST DRINK? ____ . WHAT DID YOU LAST DRINK? ____ . NAME OF PERSON DRIVING YOU HOME? ____ . DO YOU HAVE ANY OTHER QUESTIONS OR CONCERNS PT HAS APEX IMPLANT IN SPINE, FEELS THAT HE IS HAVING DIFFICULTY WITH CHANGES IN SENSATION IN LEGS . VITAL SIGNS WT 172.4 LBS, HT 69 IN, BMI 25.46 INDEX, BP 116/60 MM HG, HR 66 /MIN, RR 18 /MIN, TEMP 97.9 F, OXYGEN SAT % 97%, SAFE IN ENV? (Y/N) Y, NA INITIALS AW 1349, REVIEWED BY: LION. EXAMINATION GENERAL EXAMINATION: GENERALNO ACUTE DISTRESS, WELL NOURISHED AND HYDRATED. PSYCHAPPROPRIATE MOOD AND AFFECT . LUNGS:LUNG SOUNDS CLEAR AND DIMINISHED BILATERALLY . HEART:NO MURMURS, REGULAR RATE AND RHYTHM. 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 GIVEN PRESENTING SYMPTOMS AND RESULTS OF PHYSICAL EXAMINATION RECOMMENDED STOPPING METHOCARBAMOL AND CHANGING TO TIZANIDINE 4 MG 3 TIMES A DAY NEEDED. FURTHER RECOMMENDED REFERRAL TO [facility] FOR MEDICATION MANAGEMENT. PATIENT HAS EXPRESSED UNDERSTANDING OF AND WAS IN AGREEMENT WITH TREATMENT PLAN. GIVEN TIME TO ASK QUESTIONS AND EXPRESS CONCERNS., ISTOP REGISTRY REVIEWED AND DEMONSTRATES COMPLLIANCE. (REF # [id number] ) BRINGS IN MEDICATIONS WHICH IS APPROPRIATE FOR WHAT WAS DISPENSED. RECENT URINE TOXICOLOGY REVIEWED. NO UNAUTHORIZED MEDICATIONS. NO ILLICIT SUBSTANCES AND PRESCRIBED MEDICATIONS WERE PRESENT. [facility] REASON:MEDICATION MANAGEMENT OTHERS NOTES: PT EDUCATION GIVEN FOR TIZANDINE, PT ACKNOWLEGED UNDERSTANDING. PREVENTIVE MEDICINE PAIN CLINIC TEACHING: THE PATIENT HAS BEEN EDUCATED REGARDING PAIN, THE RISK FOR PAIN, THE IMPORTANCE OF EFFECTIVE PAIN MANAGEMENT, AND THE PAIN ASSESSMENT PROCESS. : TIZANIDINE INFORMATION GIVEN TO PT PROCEDURE CODES FA211 ESTABILISHED PATIENT [facility] FACILITY CHARGE DISPOSITION & COMMUNICATION FOLLOW UP 3 MONTHS (REASON: CHRONIC PAIN) ELECTRONICALLY SIGNED BY NARCISO TRUONG ON 12/20/2018 AT 11:08 AM EDT DISCLAIMER : THIS IS A VISIT SUMMARY EXTRACTED FROM THE [employer] CHART. IT IS NOT A COPY OF THE [employer] PROGRESS NOTE. GINAD
== END ==
LOC: M PAIN 13:45
PROVIDERS: ATTEND Family Medicine
DX: M79.18 Myalgia, other site (principal); M51.06 Intervertebral disc disorders with myelopathy, lumbar region; M79.7 Fibromyalgia; J44.9 Chronic obstructive pulmonary disease, unspecified; F17.290 Nicotine dependence, other tobacco product, uncomplicated; Z91.018 Allergy to other foods; Z91.030 Bee allergy status; Z79.899 Other long term (current) drug therapy

== ENCOUNTER → 2019-04-12 | Outpatient (CLI) | payer OTHER, MEDICAID ==
--- NOTE | 2019-04-13 23:53 | ECWPNPC ---
PATIENT NAME: NIKHIL IRVIN : 1970 GENDER: MALE VISIT DATE: 04/12/2019 DISCHARGE DATE: 04/12/19 1416 VISIT LOCKED DATE TIME: PHYSICIAN: JUDI OSULLIVAN RESOURCE: JUDI OSULLIVAN REASON FOR APPOINTMENT 1. BACK/NECK-[facility] HISTORY OF PRESENT ILLNESS HISTORY OF PRESENT ILLNESS: PAIN THE PATIENT DESCRIBES THE PAIN... SEVERITY - PAIN SCORE OF7/10 LOCATIONSLOWER BACK, LEFT SHOULDER, RIGHT SHOULDER, CERVICAL, LEFT LEG QUALITYACHING , BURNING, STABBING DURATIONCONTINUOUS, ALL DAY, AWAKENS FROM SLEEEP PAIN IS INCREASED BY:ACTIVITIES, PROLONGED STANDING PAIN IS DECREASED BY:USE OF PAIN MEDICATIONS LAYING DOWN, HEATING PAD 48-YEAR-OLD MALE IN FOR CHRONIC PAIN FOLLOW-UP. HE RATES HIS PAIN CURRENTLY AT A 6 OUT OF 10 AND DESCRIBES IT ACHING, SHARP, STABBING, SORE, AND TENDER. HE FEELS THE MEDICATIONS ARE WORKING WELL AND DENIES MED SIDE EFFECTS AT THIS TIME. HE WOULD LIKE TO DISCUSS A TRIGGER POINT INJECTION FOR HIS LOW BACK. FALL RISK SCREENING: SCREENING :NO FALLS REPORTED IN THE LAST YEAR CURRENT MEDICATIONS TAKING OXYBUTYNIN CHLORIDE 5 MG TABLET 1 TABLET ORALLY TWICE A DAY TAKING TENS UNIT ELECTRO PADS ONE SET WITH FOUR PADS GEL PADS MAY USE TRANSDERMAL EVERY OTHER DAY DX:722.73 TAKING HEATING PAD MOIST/DRY - PAD 12 EXTERNALLY. DX: M51.16 PRN TAKING BUSPIRONE HCL 30 MG TABLET 1 TABLET ORALLY TWICE A DAY TAKING TIZANIDINE HCL 4 MG TABLET 1 TABLET NEEDED ORALLY THREE TIMES A DAY TAKING ALBUTEROL SULFATE HFA 108 (90 BASE) MCG/ACT AEROSOL SOLUTION 2 PUFFS NEEDED INHALATION EVERY 4 HRS PRN TAKING LYRICA 200 MG CAPSULE 1 CAPSULE ORALLY Q 8 HRS MDD=3 TAKING NABUMETONE 750 MG TABLET 2 TABLET ORALLY IN THE AM, ALWAYS TAKE WITH FOOD TAKING SPIRIVA HANDIHALER 18 MCG CAPSULE 1 CAPSULE BY INHALING THE CONTENTS OF THE CAPSULE USING THE HANDIHALER DEVICE INHALATION ONCE A DAY, NOTES: HASNT GOTTEN THIS YET TAKING HYDROXYZINE HCL 50 MG TABLET 1 TABLET NEEDED ORALLY QHS PRN INSOMNIA TAKING HYDROXYZINE HCL 25 MG TABLET 1 TABLET ORALLY BID DURING THE DAY PRN ANXIETY/PAIN/SLEEP TAKING EFFEXOR 75 MG TABLET 1 TABLET WITH FOOD ORALLY 2 TABS IN MORNING 1 AT NIGHT TAKING EFFEXOR XR 150 MG CAPSULE EXTENDED RELEASE 24 HOUR 1 CAPSULE WITH FOOD ORALLY ONCE A DAY TAKING NICOTINE STEP 1 21 MG/24HR PATCH 24 HOUR 1 PATCH TO SKIN TRANSDERMAL ONCE A DAY TAKING VALIUM 5 MG TABLET 1 TABLET NEEDED ORALLY TWICE A DAY, MDD #2 MEDICATION LIST REVIEWED AND RECONCILED WITH THE PATIENT PAST MEDICAL HISTORY LUMBAGO FIBROMYALGIA COPD - EMPHYSEMA, GOLD II/A PER SPIROMETRY 05/2017 EPIGASTRIC HERNIA DUST AND POLLEN ALLERGIES VITAMIN D DEFICIENCY TOBACCO USE 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 SOCIAL HISTORY GENERAL: TOBACCO USE ARE YOU A:CURRENT SOME DAY SMOKER SMOKING CESSATION INFORMATION GIVEN PT ENCOURAGED TO QUIT. DS HIV / HEP-C SCREENING HIV TEST OFFERED TO PATIENT:YES DATE OFFERED:10/08/2017 TEST ACCEPTED:NO HEP-C TEST OFFERED TO PATIENT:YES DATE OFFERED:10/08/2017 REASON:PATIENT DECLINED TEST ACCEPTED:NO REASON:PATIENT DECLINED BROCHURE PROVIDED TO PATIENTNO EDUCATION LEVEL OF EDUCATION:HIGH SCHOOL GED DIET: REGULAR. LANGUAGE LANGUAGES SPOKEN:TURKISH DOMESTIC VIOLENCE DO YOU FEEL SAFE IN YOUR ENVIRONMENT?YES NEW PATIENT PAIN DIARY TODAY'S VISITNOTES FROM 0-10, WHAT LEVEL IS YOUR PAIN TODAY?6 RECREATIONAL DRUG USE DRUG USE?NO EXERCISE: NO REGULAR EXERCISE, INTERMITTENT, DAILY, WALKS. LEARNING BARRIERS / SPECIAL NEEDS CHANGE FROM LAST VISIT?NO BARRIERS TO LEARNING?NO HEARING IMPAIRED?NO VISION IMPAIRED?YES :CORRECTIVE LENSES READING GLASSES COGNITIVELY IMPAIRED?NO READINESS TO LEARN?YES LEARNING PREFERENCES?NO LEARNING CAPABILITIES PRESENT?YES EMOTIONAL BARRIERS?NO SPECIAL DEVICES?YES :CANE CONSULTANT NEEDED?NO PAIN CLINIC PFS, CLERGY, PUBLIC HEALTH REFERRALS PFS REFERRAL NEEDED?NO CLERGY REFERRAL NEEDED?NO PUBLIC HEALTH REFERRAL NEEDED?NO WAS THE PROVIDER NOTIFIED OF ANY PERTINENT INFO?YES HAS THE PATIENT BEEN EDUCATED REGARDING HIS/HER PLAN OF CARE?YES HAS THE PATIENT BEEN EDUCATED REGARDING PAIN, THE RISK FOR PAIN, THE IMPORTANCE OF EFFECTIVE PAIN MANAGEMENT, AND THE PAIN ASSESSMENT PROCESS?YES LATEX QUESTIONNAIRE LATEX ALLERGY : HAVE YOU EVER DEVELOPED ANY TYPE OF REACTION AFTER HANDLING LATEX PRODUCTS SUCH RUBBER GLOVES, CONDOMS, DIAPHRAGMS, BALLOONS, SOCKS, OR UNDERWEAR?NO LATEX ALLERGY : HAVE YOU EVER DEVELOPED ANY TYPE OF REACTION DURING OR AFTER DENTAL APPOINTMENT, VAGINAL/RECTAL EXAMINATION, SURGICAL PROCEDURE, OR ANY OTHER EXPOSURE?NO DATE ASKED : 12/17/2018 LATEX RISK : HAVE YOU EVER HAD ANY DIFFICULTY BREATHING OR HIVES AFTER EATING OR HANDLING ANY FRUITS, OR VEGETABLES; SUCH KIWI, BANANAS, STONE FRUITS, OR CHESTNUTSNO LATEX RISK : DO YOU HAVE A PREVIOUS PERSONAL HISTORY OF MORE THAN NINE SURGERIES, SPINA BIFIDA, OR REPEATED CATHERIZATIONS? NO LATEX RISK : ARE YOU FREQUENTLY EXPOSED TO LATEX PRODUCTS IN YOUR OCCUPATION?NO CAFFEINE CAFFEINE USE?YES HOW OFTEN AND HOW MUCH? 8 CUPS/ DAY AND 3 CUPS SODA/DAY ADVANCE DIRECTIVE ADVANCE DIRECTIVE DISCUSSED WITH PATIENT:YES DECLINES INFORMATION [employer] [id number] NONE NO HOAHAOISM BELIEFS THAT WOULD IMPACT HEALTH CARE. MARITAL STATUS: . ALCOHOL SCREENING DID YOU HAVE A DRINK CONTAINING ALCOHOL IN THE PAST YEAR?YES HOW OFTEN DID YOU HAVE SIX OR MORE DRINKS ON ONE OCCASION IN THE PAST YEAR?LESS THAN MONTHLY (1 POINT) HOW MANY DRINKS DID YOU HAVE ON A TYPICAL DAY WHEN YOU WERE DRINKING IN THE PAST YEAR?1 OR 2 (0 POINTS) HOW OFTEN DID YOU HAVE A DRINK CONTAINING ALCOHOL IN THE PAST YEAR?MONTHLY OR LESS (1 POINT) POINTS2 INTERPRETATIONNEGATIVE SEXUAL HX HAD SEX IN THE LAST 12 MONTHS (VAGINAL, ORAL, OR ANAL)?NO HAVE YOU EVER HAD AN STD?NO REVIEWED 06/30/17 1545 LASREVIEWED 07/14/17 1313 BVREVIEWED WITH PATIENT 01/13/18 1445 JSREVIEWED WITH PATIENT 04/12/2019 DS. HOSPITALIZATION/MAJOR DIAGNOSTIC PROCEDURE APPENDICITIS (APPARENTLY MEDICALLY MANAGED) 1983 ALLERGIC REACTION FROM CUCUMBER WITH SAMOAN DRESSING ON IT 1985 SURGERY RELATED 2018 REVIEW OF SYSTEMS REVIEWED BY: PROVIDER: ARMANDO OSULLIVAN BEAUTY SALES CONSULTANT-Angella . CONSTITUTIONAL: ANY CHANGE IN YOUR MEDICAL CONDITION? NO . CHILLS NO . FEVER NO . INFECTION: DO YOU HAVE NEW INFECTIONS? NO . DO YOU HAVE HISTORY OF MRSA? NO . MUSCULOSKELETAL: ANY NEW PATTERNS OF PAIN OR NUMBNESS? NO . GASTROENTEROLOGY: ANY NEW CHANGE IN BOWEL CONTROL? NO . GENITOURINARY: ANY NEW CHANGE IN BLADDER CONTROL? NO . IS THERE A CHANCE YOU COULD BE ? NO . HEMATOLOGY/LYMPH: DO YOU TAKE ANY BLOOD THINNERS? (FOR EXAMPLE- COUMADIN, PLAVIX, AGGRENOX, PLATEL, PRADAXA, OR XARELTO) NO . WHEN WAS YOUR LAST DOSE? DATE: TIME: . NEUROLOGY: HAVE YOU FALLEN IN THE PAST 12 MONTHS? NO . ANY NEW EXTREMITY NUMBNESS OR WEAKNESS? NO . CARDIOLOGY: DO YOU HAVE A PACEMAKER OR DEFIBRILLATOR? NO . RESPIRATORY: HAVE YOU BEEN SICK IN THE PAST WEEK? NO . FEVER NO . FLU LIKE SYMPTOMS? NO . COUGH NO . INTEGUMENTARY: DO YOU HAVE ANY RASHES OR OPEN SORES? NO . ALLERGIC/IMMUNO: ARE YOU ALLERGIC TO IV DYE? NO . ANY NEW ALLERGIES? NO . PSYCHIATRIC: DO YOU HAVE THOUGHTS OF HURTING YOURSELF OR SOMEONE ELSE? NO . ARE YOU ABUSED, NEGLECTED, OR IN AN UNSAFE ENVIRONMENT? NO . ENDOCRINOLOGY: ARE YOU DIABETIC? NO . OTHER: DO YOU NEED ANY PRESCRIPTIONS? NO . IF YES, PLEASE LIST: ____ . ANY NEW PROBLEMS WITH YOUR MEDICATIONS? NO . WHEN DID YOU LAST EAT? ____ . WHEN DID YOU LAST DRINK? ____ . WHAT DID YOU LAST DRINK? ____ . NAME OF PERSON DRIVING YOU HOME? ____ . DO YOU HAVE ANY OTHER QUESTIONS OR CONCERNS NO . VITAL SIGNS WT 168 LBS, HT 69 IN, BMI 24.81 INDEX, HR 64 /MIN, RR 18 /MIN, TEMP 97.9 F, OXYGEN SAT % 98, SAFE IN ENV? (Y/N) Y, REVIEWED BY: DSM. SARBJIT CASTREJON, ZACK II @ 1350. EXAMINATION GENERAL EXAMINATION: GENERALNO ACUTE DISTRESS, WELL NOURISHED AND HYDRATED. PSYCHAPPROPRIATE MOOD AND AFFECT . LUNGS:CLEAR TO AUSCULTATION BILATERALLY, NO WHEEZES, RHONCHI, RALES. HEART:NO MURMURS, REGULAR RATE AND RHYTHM. BACK:POINT TENDER BILATERAL LOW BACK, SURROUNDING SKIN SHOWS NO ERYTHEMA, ECCHYMOSIS, INCREASED WARMTH, AND/OR SKIN ERUPTIONS NOTED. . ASSESSMENTS MYALGIA, OTHER SITE - M79.18 (PRIMARY) MYALGIA - M79.1 TREATMENT MYALGIA, OTHER SITE NOTES: LOW BACK TPI BILATERALLY. CLINICAL NOTES: 48-YEAR-OLD MALE IN FOR CHRONIC PAIN FOLLOW-UP. GIVEN PRESENTING SYMPTOMS AND RESULTS OF PHYSICAL EXAMINATION RECOMMENDED BILATERAL TRIGGER POINT INJECTIONS OF LOW BACK WITH POST PROCEDURAL FOLLOW-UP. FURTHER RECOMMENDED CONTINUATION CURRENT MEDICATION REGIMEN. PATIENT HAS EXPRESSED UNDERSTANDING OF AND WAS IN AGREEMENT WITH TREATMENT PLAN. GIVEN TIME TO ASK QUESTIONS AND EXPRESS CONCERNS., ISTOP REGISTRY REVIEWED AND DEMONSTRATES COMPLLIANCE. (REF # [id number] ) BRINGS IN MEDICATIONS WHICH IS APPROPRIATE FOR WHAT WAS DISPENSED. RECENT URINE TOXICOLOGY REVIEWED. NO UNAUTHORIZED MEDICATIONS. NO ILLICIT SUBSTANCES AND PRESCRIBED MEDICATIONS WERE PRESENT. MYALGIA REFILL LYRICA CAPSULE, 200 MG, 1 CAPSULE, ORALLY, Q 8 HRS MDD=3, 30 DAYS, 90, REFILLS 0 PREVENTIVE MEDICINE PAIN CLINIC TEACHING: THE PATIENT HAS BEEN EDUCATED REGARDING HIS/HER PLAN OF CARE : REVIEWED AND DISCUSSED WRITTEN MATERIAL, REVIEWED PRE-PROCEDURE TEACHING, EDUCATED PT REGARDING CONTINUATION OF MED PLAN, PT ACKNOWLEDGED UNDERSTANDING, DS PROCEDURE CODES FA211 ESTABILISHED PATIENT [facility] FACILITY CHARGE DISPOSITION & COMMUNICATION FOLLOW UP POSTPROCEDURE (REASON: BILATERAL LOW BACK TPI) ELECTRONICALLY SIGNED BY NARCISO TRUONG ON 04/13/2019 AT 03:54 PM EST DISCLAIMER : THIS IS A VISIT SUMMARY EXTRACTED FROM THE [employer] CHART. IT IS NOT A COPY OF THE [employer] PROGRESS NOTE. JV
== END ==
LOC: M PAIN 13:45
PROVIDERS: ATTEND Family Medicine
DX: M79.18 Myalgia, other site (principal)

== ENCOUNTER → 2019-04-29 | Outpatient (CLI) | payer OTHER, MEDICAID ==
[~2019-04-29] MED LIST changes: +BUPIVACAINE HCL 0.25% 30 ML VIAL As Ordered ONE; +TRIAMCINOLONE ACETONIDE SUSP 40 MG/ML VIAL (J3301) As Ordered ONE; +diazePAM 5 MG TAB As Ordered ONE; +oxyCODONE 5MG TAB As Ordered ONE
--- NOTE | 2019-05-07 02:30 | ECWPNPC ---
PATIENT NAME: NIKHIL IRVIN : 1970 GENDER: MALE VISIT DATE: 04/29/2019 DISCHARGE DATE: 04/29/19 1224 VISIT LOCKED DATE TIME: PHYSICIAN: KYLIE LARES MD RESOURCE: KYLIE LARES MD REASON FOR APPOINTMENT 1. LAXMI LOW BACK TPI HISTORY OF PRESENT ILLNESS HISTORY OF PRESENT ILLNESS: PAIN THE PATIENT DESCRIBES THE PAIN... FALL RISK SCREENING: SCREENING :NO FALLS REPORTED IN THE LAST YEAR CURRENT MEDICATIONS TAKING OXYBUTYNIN CHLORIDE 5 MG TABLET 1 TABLET ORALLY TWICE A DAY, NOTES: COUPLE DAYS TAKING TENS UNIT ELECTRO PADS ONE SET WITH FOUR PADS GEL PADS MAY USE TRANSDERMAL EVERY OTHER DAY DX:722.73 TAKING HEATING PAD MOIST/DRY - PAD 12 EXTERNALLY. DX: M51.16 PRN TAKING BUSPIRONE HCL 30 MG TABLET 1 TABLET ORALLY TWICE A DAY, NOTES: 04/28/19 PM TAKING TIZANIDINE HCL 4 MG TABLET 1 TABLET NEEDED ORALLY THREE TIMES A DAY, NOTES: 04/28/19 PM TAKING ALBUTEROL SULFATE HFA 108 (90 BASE) MCG/ACT AEROSOL SOLUTION 2 PUFFS NEEDED INHALATION EVERY 4 HRS PRN, NOTES: 04/29/19 0800 TAKING NABUMETONE 750 MG TABLET 2 TABLET ORALLY IN THE AM, ALWAYS TAKE WITH FOOD, NOTES: 04/28/19 AM TAKING HYDROXYZINE HCL 50 MG TABLET 1 TABLET NEEDED ORALLY QHS PRN INSOMNIA, NOTES: 2 NIGHTS AGO TAKING HYDROXYZINE HCL 25 MG TABLET 1 TABLET ORALLY BID DURING THE DAY PRN ANXIETY/PAIN/SLEEP, NOTES: 04/28/19 PM TAKING EFFEXOR 75 MG TABLET 1 TABLET WITH FOOD ORALLY 2 TABS IN MORNING 1 AT NIGHT, NOTES: 04/28/19 PM TAKING EFFEXOR XR 150 MG CAPSULE EXTENDED RELEASE 24 HOUR 1 CAPSULE WITH FOOD ORALLY ONCE A DAY, NOTES: 04/28/19 AM TAKING NICOTINE STEP 1 21 MG/24HR PATCH 24 HOUR 1 PATCH TO SKIN TRANSDERMAL ONCE A DAY, NOTES: 04/29/19 TAKING VALIUM 5 MG TABLET 1 TABLET NEEDED ORALLY TWICE A DAY, MDD #2, NOTES: 04/29/19 0800 TAKING LYRICA 200 MG CAPSULE 1 CAPSULE ORALLY Q 8 HRS MDD=3, NOTES: 04/28/19 NOT-TAKING SPIRIVA HANDIHALER 18 MCG CAPSULE 1 CAPSULE BY INHALING THE CONTENTS OF THE CAPSULE USING THE HANDIHALER DEVICE INHALATION ONCE A DAY, NOTES: HASNT GOTTEN THIS YET MEDICATION LIST REVIEWED AND RECONCILED WITH THE PATIENT PAST MEDICAL HISTORY FIBROMYALGIA COPD - EMPHYSEMA, GOLD II/A PER SPIROMETRY 05/2017 LUMBAGO EPIGASTRIC HERNIA DUST AND POLLEN ALLERGIES VITAMIN D DEFICIENCY TOBACCO USE 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 SOCIAL HISTORY GENERAL: TOBACCO USE ARE YOU A:CURRENT SOME DAY SMOKER PT CURRENTLY USING NICOTINE PATCH SMOKING CESSATION INFORMATION GIVEN04/29/2019 PT ENCOURAGED TO QUIT. BV HIV / HEP-C SCREENING HIV TEST OFFERED TO PATIENT:YES DATE OFFERED:10/08/2017 TEST ACCEPTED:NO HEP-C TEST OFFERED TO PATIENT:YES DATE OFFERED:10/08/2017 REASON:PATIENT DECLINED TEST ACCEPTED:NO REASON:PATIENT DECLINED BROCHURE PROVIDED TO PATIENTNO EDUCATION LEVEL OF EDUCATION:HIGH SCHOOL GED DIET: REGULAR. LANGUAGE LANGUAGES SPOKEN:NORTHERN IRISH DOMESTIC VIOLENCE DO YOU FEEL SAFE IN YOUR ENVIRONMENT?YES NEW PATIENT PAIN DIARY TODAY'S VISITNOTES FROM 0-10, WHAT LEVEL IS YOUR PAIN TODAY?7 RECREATIONAL DRUG USE DRUG USE?NO EXERCISE: NO REGULAR EXERCISE, INTERMITTENT, DAILY, WALKS. 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 CARBON BLOCKS NEEDED?NO PAIN CLINIC PFS, CLERGY, PUBLIC HEALTH REFERRALS PFS REFERRAL NEEDED?NO CLERGY REFERRAL NEEDED?NO PUBLIC HEALTH REFERRAL NEEDED?NO WAS THE PROVIDER NOTIFIED OF ANY PERTINENT INFO?YES HAS THE PATIENT BEEN EDUCATED REGARDING HIS/HER PLAN OF CARE?YES HAS THE PATIENT BEEN EDUCATED REGARDING PAIN, THE RISK FOR PAIN, THE IMPORTANCE OF EFFECTIVE PAIN MANAGEMENT, AND THE PAIN ASSESSMENT PROCESS?YES LATEX QUESTIONNAIRE LATEX ALLERGY : HAVE YOU EVER DEVELOPED ANY TYPE OF REACTION AFTER HANDLING LATEX PRODUCTS SUCH RUBBER GLOVES, CONDOMS, DIAPHRAGMS, BALLOONS, SOCKS, OR UNDERWEAR?NO LATEX ALLERGY : HAVE YOU EVER DEVELOPED ANY TYPE OF REACTION DURING OR AFTER DENTAL APPOINTMENT, VAGINAL/RECTAL EXAMINATION, SURGICAL PROCEDURE, OR ANY OTHER EXPOSURE?NO DATE ASKED : 12/17/2018 LATEX RISK : HAVE YOU EVER HAD ANY DIFFICULTY BREATHING OR HIVES AFTER EATING OR HANDLING ANY FRUITS, OR VEGETABLES; SUCH KIWI, BANANAS, STONE FRUITS, OR CHESTNUTSNO LATEX RISK : DO YOU HAVE A PREVIOUS PERSONAL HISTORY OF MORE THAN NINE SURGERIES, SPINA BIFIDA, OR REPEATED CATHERIZATIONS? NO LATEX RISK : ARE YOU FREQUENTLY EXPOSED TO LATEX PRODUCTS IN YOUR OCCUPATION?NO CAFFEINE CAFFEINE USE?YES HOW OFTEN AND HOW MUCH? 8 CUPS/ DAY AND 3 CUPS SODA/DAY ADVANCE DIRECTIVE ADVANCE DIRECTIVE DISCUSSED WITH PATIENT:YES DECLINES INFORMATION AND ASSISTANCE WITH FORM 04/29/19 ORTHODOXY [id number] NONE NO TEMPLE BELIEFS THAT WOULD IMPACT HEALTH CARE. MARITAL STATUS: . ALCOHOL SCREENING DID YOU HAVE A DRINK CONTAINING ALCOHOL IN THE PAST YEAR?YES HOW OFTEN DID YOU HAVE SIX OR MORE DRINKS ON ONE OCCASION IN THE PAST YEAR?LESS THAN MONTHLY (1 POINT) HOW MANY DRINKS DID YOU HAVE ON A TYPICAL DAY WHEN YOU WERE DRINKING IN THE PAST YEAR?1 OR 2 (0 POINTS) HOW OFTEN DID YOU HAVE A DRINK CONTAINING ALCOHOL IN THE PAST YEAR?MONTHLY OR LESS (1 POINT) POINTS2 INTERPRETATIONNEGATIVE SEXUAL HX HAD SEX IN THE LAST 12 MONTHS (VAGINAL, ORAL, OR ANAL)?NO HAVE YOU EVER HAD AN STD?NO REVIEWED 06/30/17 1545 LASREVIEWED 07/14/17 1313 BVREVIEWED WITH PATIENT 01/13/18 1445 JSREVIEWED WITH PATIENT 04/12/2019 DSREVIEWED WITH PATIENT 04/29/19 1028 BV. HOSPITALIZATION/MAJOR DIAGNOSTIC PROCEDURE APPENDICITIS (APPARENTLY MEDICALLY MANAGED) 1983 ALLERGIC REACTION FROM CUCUMBER WITH LUXEMBOURGISH DRESSING ON IT 1985 SURGERY RELATED 2018 REVIEW OF SYSTEMS REVIEWED BY: PROVIDER: . CONSTITUTIONAL: ANY CHANGE IN YOUR MEDICAL CONDITION? NO . CHILLS NO . FEVER NO . INFECTION: DO YOU HAVE NEW INFECTIONS? NO . DO YOU HAVE HISTORY OF MRSA? NO . MUSCULOSKELETAL: ANY NEW PATTERNS OF PAIN OR NUMBNESS? NO . GASTROENTEROLOGY: ANY NEW CHANGE IN BOWEL CONTROL? NO . GENITOURINARY: ANY NEW CHANGE IN BLADDER CONTROL? NO . IS THERE A CHANCE YOU COULD BE ? NO . HEMATOLOGY/LYMPH: DO YOU TAKE ANY BLOOD THINNERS? (FOR EXAMPLE- COUMADIN, PLAVIX, AGGRENOX, PLATEL, PRADAXA, OR XARELTO) NO . WHEN WAS YOUR LAST DOSE? DATE: TIME: . NEUROLOGY: HAVE YOU FALLEN IN THE PAST 12 MONTHS? YES LAST FALL WAS LATE FEBRUARY WHEN LEFT KNEE GAVE OUT WHILE WALKING DOG. DENIES ANY INJURIES OR ED VISIT WITH FALL. . ANY NEW EXTREMITY NUMBNESS OR WEAKNESS? PT STATES THIS IS NOT NEW, BUT NUMBNESS AND WEAKNESS IN LEFT LEG THAT WAS DISCUSSED AT LAST VISIT HAS BEEN IMPROVING OVER THE PAST WEEK . CARDIOLOGY: DO YOU HAVE A PACEMAKER OR DEFIBRILLATOR? NO . RESPIRATORY: HAVE YOU BEEN SICK IN THE PAST WEEK? NO . FEVER NO . FLU LIKE SYMPTOMS? NO . COUGH NO . INTEGUMENTARY: DO YOU HAVE ANY RASHES OR OPEN SORES? NO . ALLERGIC/IMMUNO: ARE YOU ALLERGIC TO IV DYE? NO . ANY NEW ALLERGIES? NO . PSYCHIATRIC: DO YOU HAVE THOUGHTS OF HURTING YOURSELF OR SOMEONE ELSE? NO . ARE YOU ABUSED, NEGLECTED, OR IN AN UNSAFE ENVIRONMENT? NO . ENDOCRINOLOGY: ARE YOU DIABETIC? NO . OTHER: DO YOU NEED ANY PRESCRIPTIONS? NO . IF YES, PLEASE LIST: ____ . ANY NEW PROBLEMS WITH YOUR MEDICATIONS? NO . WHEN DID YOU LAST EAT? 04/28/191929 . WHEN DID YOU LAST DRINK? 04/28/190 . WHAT DID YOU LAST DRINK? WATER . NAME OF PERSON DRIVING YOU HOME? YELLOW CAB . DO YOU HAVE ANY OTHER QUESTIONS OR CONCERNS NO . VITAL SIGNS WT 164.6 LBS, HT 69 IN, BMI 24.30 INDEX, BP 161/86 MM HG, HR 80 /MIN, RR 18 /MIN, TEMP 98.2 F, OXYGEN SAT % 98%, SAFE IN ENV? (Y/N) YES, NA INITIALS 1035, REVIEWED BY: BV. ASSESSMENTS MYALGIA, OTHER SITE - M79.18 (PRIMARY) PROCEDURES PN TRIGGER POINT INJECTION WITH STEROIDS PRE PROCEDURE DIAGNOSIS 1. MYALGIA 2. PAIN AT RIGHT AND LEFT LOW BACK AREA. POST PROCEDURE DIAGNOSIS 1. MYALGIA 2. PAIN AT RIGHT AND LEFT LOW BACK AREA. PROCEDURE TRIGGER POINT INJECTION AT RIGHT AND LEFT LOW BACK AREA. SURGEON DR. KYLIE LARES CONTINUOUS WAVE OPERATOR NONE ANESTHESIA LOCAL PRE PROCEDURE NOTE THE PATIENT HAS A HISTORY OF CHRONIC PAIN AT THE RIGHT AND LEFT LOW BACK AREA. I EVALUATED THE PATIENT AND REVIEWED THE CHART. THERE IS EVIDENCE OF BANDS OF TISSUE WITH RESTRICTION OF MOVEMENT AND PRESENCE OF TRIGGER POINT AT THE AFFECTED AREA. I WENT OVER THE RISKS, ALTERNATIVES, AND BENEFITS ASSOCIATED WITH THIS PROCEDURE. THE PATIENT WOULD LIKE TO PROCEED AND GIVES CONSENT TO PERFORM THE PROCEDURE. THE PATIENT DENIES UNEXPLAINABLE WEIGHT LOSS, FEVER, CHILLS, OR NEW CHANGES IN URINARY OR BOWEL CONTROL DESCRIPTION OF PROCEDURE THE PATIENT WAS BROUGHT TO THE PROCEDURE ROOM AND PLACED IN THE SITTING POSITION. THE AREA WAS CLEANED WITH ALCOHOL. THE PROCEDURE WAS DONE USING ASEPTIC STERILE TECHNIQUE. I CHECKED LATERALITY AND THE LEVEL WHERE THE PROCEDURE WAS GOING TO BE PERFORMED WITH THE PATIENT AND THE SUPPORTING STAFF AT THE MOMENT OF THE TIME OUT IN THE PROCEDURE ROOM. USING A 25-GAUGE NEEDLE, TRIGGER POINTS WERE INJECTED AT THE RIGHT AND LEFT LOW BACK AREA WITH A TOTAL OF 40 ML OF BUPIVACAINE 0.25% AND KENALOG 40 MG. THERE WAS NO EVIDENCE OF BLOOD, PARESTHESIA OR CEREBROSPINAL FLUID DURING THE PROCEDURE. THE PATIENT WAS SENT TO THE RECOVERY ROOM. THE PATIENT WAS MOVING THE EXTREMITIES AND DOING WELL. THERE WAS NO COMPLICATION DURING THE PROCEDURE POST PROCEDURE NOTE THE PATIENT WILL BE SEEN IN A FOLLOW UP IN THE NEXT FEW WEEKS. I AM LOOKING FOR LONG LASTING PAIN RELIEF WITH THIS INJECTION. INSTRUCTIONS WERE GIVEN, QUESTIONS WERE ANSWERED, AND THE PATIENT EXPRESSED UNDERSTANDING AND AGREES WITH THE PLAN. I, GIDEON FLOWER, DOCUMENTED THE ABOVE INFORMATION ACTING A SCRIBE FOR DR. LARES. I HAVE REVIEWED THE ABOVE DOCUMENT, WRITTEN BY GIDEON CASTILLO AND I VERIFY THAT IT IS ACCURATE. PROCEDURE CODES 53895 INJ TRIGGER POINT 03/31 [facility] [place] [facility]UNICATION FOLLOW UP 3 WEEKS ELECTRONICALLY SIGNED BY KYLIE LARES MD, MD ON 05/06/2019 AT 03:30 PM EST DISCLAIMER : THIS IS A VISIT SUMMARY EXTRACTED FROM THE [employer] CHART. IT IS NOT A COPY OF THE [employer] PROGRESS NOTE. MTDD
== END ==
LOC: M PAIN 10:15
PROVIDERS: ATTEND Anesthesiology
DX: M79.18 Myalgia, other site (principal)
CPT/HCPCS: 20552; J3301

== ENCOUNTER → 2019-05-13 | Outpatient (CLI) | payer OTHER, MEDICAID ==
[~2019-05-13] MED LIST changes: -BUPIVACAINE HCL 0.25% 30 ML VIAL As Ordered ONE; -TRIAMCINOLONE ACETONIDE SUSP 40 MG/ML VIAL (J3301) As Ordered ONE; -diazePAM 5 MG TAB As Ordered ONE; -oxyCODONE 5MG TAB As Ordered ONE
--- NOTE | 2019-05-24 03:24 | ECWPNPC ---
PATIENT NAME: NIKHIL IRVIN : 1970 GENDER: MALE VISIT DATE: 05/13/2019 DISCHARGE DATE: 05/13/19 1423 VISIT LOCKED DATE TIME: PHYSICIAN: JUDI OSULLIVAN RESOURCE: JUDI OSULLIVAN REASON FOR APPOINTMENT 1. POST TPI HISTORY OF PRESENT ILLNESS HISTORY OF PRESENT ILLNESS: PAIN THE PATIENT DESCRIBES THE PAIN... 38-YEAR-OLD MALE IN FOR POST TPI FOLLOW-UP. HE STATES HIS PAIN WAS AT A 4 OUT OF 10 FOR 4 DAYS AND FEELS THIS PROCEDURE WAS HELPFUL. HE RATES HIS PAIN CURRENTLY AT A 7 OUT OF 10 AND DESCRIBES IT ACHING, SHARP, BURNING, SORE, SHOOTING, AND TENDER. FALL RISK SCREENING: SCREENING :NO FALLS REPORTED IN THE LAST YEAR CURRENT MEDICATIONS TAKING TENS UNIT ELECTRO PADS ONE SET WITH FOUR PADS GEL PADS MAY USE TRANSDERMAL EVERY OTHER DAY DX:722.73 TAKING HEATING PAD MOIST/DRY - PAD 12 EXTERNALLY. DX: M51.16 PRN TAKING BUSPIRONE HCL 30 MG TABLET 1 TABLET ORALLY TWICE A DAY TAKING TIZANIDINE HCL 4 MG TABLET 1 TABLET NEEDED ORALLY THREE TIMES A DAY TAKING ALBUTEROL SULFATE HFA 108 (90 BASE) MCG/ACT AEROSOL SOLUTION 2 PUFFS NEEDED INHALATION EVERY 4 HRS PRN TAKING NABUMETONE 750 MG TABLET 2 TABLET ORALLY IN THE AM, ALWAYS TAKE WITH FOOD TAKING HYDROXYZINE HCL 50 MG TABLET 1 TABLET NEEDED ORALLY QHS PRN INSOMNIA TAKING HYDROXYZINE HCL 25 MG TABLET 1 TABLET ORALLY BID DURING THE DAY PRN ANXIETY/PAIN/SLEEP TAKING EFFEXOR 75 MG TABLET 1 TABLET WITH FOOD ORALLY 2 TABS IN MORNING 1 AT NIGHT TAKING NICOTINE STEP 1 21 MG/24HR PATCH 24 HOUR 1 PATCH TO SKIN TRANSDERMAL ONCE A DAY TAKING LYRICA 200 MG CAPSULE 1 CAPSULE ORALLY Q 8 HRS MDD=3 TAKING EFFEXOR XR 150 MG CAPSULE EXTENDED RELEASE 24 HOUR 1 CAPSULE WITH FOOD ORALLY ONCE A DAY TAKING ATROVENT HFA 17 MCG/ACT AEROSOL SOLUTION 2 PUFFS INHALATION FOUR TIMES A DAY TAKING VALIUM 5 MG TABLET 1 TABLET NEEDED ORALLY TWICE A DAY, MDD #2 NOT-TAKING OXYBUTYNIN CHLORIDE 5 MG TABLET 1 TABLET ORALLY TWICE A DAY, NOTES: COUPLE DAYS MEDICATION LIST REVIEWED AND RECONCILED WITH THE PATIENT PAST MEDICAL HISTORY FIBROMYALGIA COPD - EMPHYSEMA, GOLD II/A PER SPIROMETRY 05/2017 LUMBAGO EPIGASTRIC HERNIA DUST AND POLLEN ALLERGIES VITAMIN D DEFICIENCY TOBACCO USE 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 SOCIAL HISTORY GENERAL: TOBACCO USE ARE YOU A:CURRENT SMOKER HOW MANY CIGARETTES A DAY DO YOU SMOKE?5 OR LESS PATIENT COUNSELED ON THE DANGERS OF TOBACCO USE AND URGED TO QUIT:05/13/2019 SMOKING CESSATION INFORMATION GIVEN05/02/2019 HIV / HEP-C SCREENING HIV TEST OFFERED TO PATIENT:YES DATE OFFERED:10/08/2017 TEST ACCEPTED:NO HEP-C TEST OFFERED TO PATIENT:YES DATE OFFERED:10/08/2017 REASON:PATIENT DECLINED TEST ACCEPTED:NO REASON:PATIENT DECLINED BROCHURE PROVIDED TO PATIENTNO EDUCATION LEVEL OF EDUCATION:HIGH SCHOOL GED DIET: REGULAR. LANGUAGE LANGUAGES SPOKEN:[place]OM[place] ISLANDER DOMESTIC VIOLENCE DO YOU FEEL SAFE IN YOUR ENVIRONMENT?YES NEW PATIENT PAIN DIARY TODAY'S VISITNOTES FROM 0-10, WHAT LEVEL IS YOUR PAIN TODAY?7 RECREATIONAL DRUG USE DRUG USE?NO EXERCISE: NO REGULAR EXERCISE, INTERMITTENT, DAILY, WALKS. 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 NEEDED?NO PAIN CLINIC PFS, CLERGY, PUBLIC HEALTH REFERRALS PFS REFERRAL NEEDED?NO CLERGY REFERRAL NEEDED?NO PUBLIC HEALTH REFERRAL NEEDED?NO WAS THE PROVIDER NOTIFIED OF ANY PERTINENT INFO?YES HAS THE PATIENT BEEN EDUCATED REGARDING HIS/HER PLAN OF CARE?YES HAS THE PATIENT BEEN EDUCATED REGARDING PAIN, THE RISK FOR PAIN, THE IMPORTANCE OF EFFECTIVE PAIN MANAGEMENT, AND THE PAIN ASSESSMENT PROCESS?YES LATEX QUESTIONNAIRE LATEX ALLERGY : HAVE YOU EVER DEVELOPED ANY TYPE OF REACTION AFTER HANDLING LATEX PRODUCTS SUCH RUBBER GLOVES, CONDOMS, DIAPHRAGMS, BALLOONS, SOCKS, OR UNDERWEAR?NO LATEX ALLERGY : HAVE YOU EVER DEVELOPED ANY TYPE OF REACTION DURING OR AFTER DENTAL APPOINTMENT, VAGINAL/RECTAL EXAMINATION, SURGICAL PROCEDURE, OR ANY OTHER EXPOSURE?NO LATEX RISK : HAVE YOU EVER HAD ANY DIFFICULTY BREATHING OR HIVES AFTER EATING OR HANDLING ANY FRUITS, OR VEGETABLES; SUCH KIWI, BANANAS, STONE FRUITS, OR CHESTNUTSNO LATEX RISK : DO YOU HAVE A PREVIOUS PERSONAL HISTORY OF MORE THAN NINE SURGERIES, SPINA BIFIDA, OR REPEATED CATHERIZATIONS? NO LATEX RISK : ARE YOU FREQUENTLY EXPOSED TO LATEX PRODUCTS IN YOUR OCCUPATION?NO DATE ASKED : 05/13/2019 CAFFEINE CAFFEINE USE?YES HOW OFTEN AND HOW MUCH? 8 CUPS/ DAY AND 3 CUPS SODA/DAY ADVANCE DIRECTIVE ADVANCE DIRECTIVE DISCUSSED WITH PATIENT:YES DECLINES INFORMATION AND ASSISTANCE WITH FORM SCIENTOLOGY [id number] NONE NO MOSQUE BELIEFS THAT WOULD IMPACT HEALTH CARE. MARITAL STATUS: . ALCOHOL SCREENING DID YOU HAVE A DRINK CONTAINING ALCOHOL IN THE PAST YEAR?YES HOW OFTEN DID YOU HAVE SIX OR MORE DRINKS ON ONE OCCASION IN THE PAST YEAR?LESS THAN MONTHLY (1 POINT) HOW MANY DRINKS DID YOU HAVE ON A TYPICAL DAY WHEN YOU WERE DRINKING IN THE PAST YEAR?1 OR 2 (0 POINTS) HOW OFTEN DID YOU HAVE A DRINK CONTAINING ALCOHOL IN THE PAST YEAR?MONTHLY OR LESS (1 POINT) POINTS2 INTERPRETATIONNEGATIVE SEXUAL HX HAD SEX IN THE LAST 12 MONTHS (VAGINAL, ORAL, OR ANAL)?NO HAVE YOU EVER HAD AN STD?NO REVIEWED 06/30/17 1545 LASREVIEWED 07/14/17 1313 BVREVIEWED WITH PATIENT 01/13/18 1445 JSREVIEWED WITH PATIENT 04/12/2019 DSREVIEWED WITH PATIENT 04/29/19 1028 BVREVIEWED WITH PATIENT 05/13/2019 DS. HOSPITALIZATION/MAJOR DIAGNOSTIC PROCEDURE APPENDICITIS (APPARENTLY MEDICALLY MANAGED) 1983 ALLERGIC REACTION FROM CUCUMBER WITH GUYANESE DRESSING ON IT 1985 SURGERY RELATED 2018 REVIEW OF SYSTEMS REVIEWED BY: PROVIDER: ARMANDO STUART-Angella . CONSTITUTIONAL: ANY CHANGE IN YOUR MEDICAL CONDITION? NO . CHILLS NO . FEVER NO . INFECTION: DO YOU HAVE NEW INFECTIONS? NO . DO YOU HAVE HISTORY OF MRSA? NO . MUSCULOSKELETAL: ANY NEW PATTERNS OF PAIN OR NUMBNESS? YES, PT STATES THAT HE MOVED NECK JUST RIGHT AND FELT DIFFERENT SENSATIONS IN HEAD, NECK AND BODY. HAPPENED ABOUT 3-4 DAYS AGO, SYMPTOMS HAVE SINCE RESOLVED. . GASTROENTEROLOGY: ANY NEW CHANGE IN BOWEL CONTROL? NO . GENITOURINARY: ANY NEW CHANGE IN BLADDER CONTROL? NO . IS THERE A CHANCE YOU COULD BE ? NO . HEMATOLOGY/LYMPH: DO YOU TAKE ANY BLOOD THINNERS? (FOR EXAMPLE- COUMADIN, PLAVIX, AGGRENOX, PLATEL, PRADAXA, OR XARELTO) NO . WHEN WAS YOUR LAST DOSE? DATE: TIME: . NEUROLOGY: HAVE YOU FALLEN IN THE PAST 12 MONTHS? YES, PT STATES THAT HE WAS WALKING DOG, LEFT KNEE GAVE OUT, NO INJURY FROM FALL. DS . ANY NEW EXTREMITY NUMBNESS OR WEAKNESS? YES, PT STATES THAT HE HAS HAD NUMBNESS AND WEAKNESS IN LEFT LEG . CARDIOLOGY: DO YOU HAVE A PACEMAKER OR DEFIBRILLATOR? NO . RESPIRATORY: HAVE YOU BEEN SICK IN THE PAST WEEK? NO . FEVER NO . FLU LIKE SYMPTOMS? NO . COUGH NO . INTEGUMENTARY: DO YOU HAVE ANY RASHES OR OPEN SORES? NO . ALLERGIC/IMMUNO: ARE YOU ALLERGIC TO IV DYE? NO . ANY NEW ALLERGIES? NO . PSYCHIATRIC: DO YOU HAVE THOUGHTS OF HURTING YOURSELF OR SOMEONE ELSE? NO . ARE YOU ABUSED, NEGLECTED, OR IN AN UNSAFE ENVIRONMENT? NO . ENDOCRINOLOGY: ARE YOU DIABETIC? NO . OTHER: DO YOU NEED ANY PRESCRIPTIONS? NO . IF YES, PLEASE LIST: ____ . ANY NEW PROBLEMS WITH YOUR MEDICATIONS? NO . WHEN DID YOU LAST EAT? ____ . WHEN DID YOU LAST DRINK? ____ . WHAT DID YOU LAST DRINK? ____ . NAME OF PERSON DRIVING YOU HOME? ____ . DO YOU HAVE ANY OTHER QUESTIONS OR CONCERNS PT STATES THAT HE HAD PAIN RELIEF FROM TPI FOR APPROX 4 DAYS. . VITAL SIGNS WT 168.0 LBS, HT 69 IN, BMI 24.81 INDEX, BP 119/62 MM HG, HR 65 /MIN, RR 18 /MIN, TEMP 97.6 F, OXYGEN SAT % 97, SAFE IN ENV? (Y/N) Y, REVIEWED BY: DS. EXAMINATION GENERAL EXAMINATION: GENERALNO ACUTE DISTRESS, WELL NOURISHED AND HYDRATED. PSYCHAPPROPRIATE MOOD AND AFFECT . LUNGS:CLEAR TO AUSCULTATION BILATERALLY, NO WHEEZES, RHONCHI, RALES. HEART:NO MURMURS, REGULAR RATE AND RHYTHM. BACK:POINT TENDER RIGHT SIJ . 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 CLINICAL NOTES: 48-YEAR-OLD MALE IN FOR POST TPI FOLLOW-UP. GIVEN PRESENTING SYMPTOMS AND RESULTS OF PHYSICAL EXAMINATION RECOMMENDED RIGHT PIRIFORMIS INJECTION WITH POSTPROCEDURAL FOLLOW-UP. FURTHER RECOMMENDED STOPPING TIZANIDINE AND STARTING BACLOFEN. PATIENT HAS EXPRESSED UNDERSTANDING OF AND WAS IN AGREEMENT WITH TREATMENT PLAN. GIVEN TIME TO ASK QUESTIONS AND EXPRESS CONCERNS. PREVENTIVE MEDICINE PAIN CLINIC TEACHING: THE PATIENT HAS BEEN EDUCATED REGARDING PAIN, THE RISK FOR PAIN, THE IMPORTANCE OF EFFECTIVE PAIN MANAGEMENT, AND THE PAIN ASSESSMENT PROCESS. : DISCUSSED AND REVIEWED WRITTEN MATERIAL FOR PRE-PROCEDURE TEACHING, REVIEWED PLAN OF CARE WITH PT, PT ACKNOWLEDGED UNDERSTANDING. DS DISPOSITION & COMMUNICATION FOLLOW UP POSTPROCEDURE (REASON: RIGHT PIRIFORMIS INJECTION) ELECTRONICALLY SIGNED BY NARCISO TRUONG ON 05/23/2019 AT 10:12 AM EST DISCLAIMER : THIS IS A VISIT SUMMARY EXTRACTED FROM THE [employer] CHART. IT IS NOT A COPY OF THE [employer] PROGRESS NOTE. JV
== END ==
LOC: M PAIN 13:15
PROVIDERS: ATTEND Family Medicine
DX: G57.00 Lesion of sciatic nerve, unspecified lower limb (principal); M79.7 Fibromyalgia; J44.9 Chronic obstructive pulmonary disease, unspecified; F17.210 Nicotine dependence, cigarettes, uncomplicated; Z91.018 Allergy to other foods; Z91.030 Bee allergy status; Z79.899 Other long term (current) drug therapy

== ENCOUNTER → 2019-09-16 | Outpatient (CLI) | payer OTHER, MEDICAID | LOC: M LABSMTC 14:13 | PROVIDERS: ATTEND Anesthesiology | DX: Z03.818 Encounter for observation for suspected exposure to other biological agents ruled out (principal); Z11.59 Encounter for screening for other viral diseases | CPT/HCPCS: C9803; U0003 ==

== ENCOUNTER → 2019-09-19 | Outpatient (CLI) | payer OTHER, MEDICAID ==
[~2019-09-19] MED LIST changes: +BUPIVACAINE HCL 0.25% 30ML VIAL As Ordered ONE; +ISOVUE-M 300 61% 15ML VIAL As Ordered ONE; +LIDOCAINE 1% SDV 30ML VIAL As Ordered ONE; +TRIAMCINOLONE ACETONIDE SUSP 40 MG/ML VIAL (J3301) As Ordered ONE; +diazePAM 5 MG TAB As Ordered ONE; +oxyCODONE 5MG TAB As Ordered ONE
--- NOTE | 2019-09-19 23:06 | REP ---
C-ARM VIEWS RIGHT HIP REGION: CLINICAL HISTORY: Pain. Multiple C-arm views right hip region performed during piriformis injection by Dr. Ahn. Needle overlies the region of the proximal right femur, and a small amount of contrast is injected. 16 seconds of fluoroscopy time utilized. Unreviewed
--- NOTE | 2019-09-20 04:16 | ECWPNPC ---
PATIENT NAME: NIKHIL IRVIN : 1970 GENDER: MALE VISIT DATE: 09/19/2019 DISCHARGE DATE: 09/19/19 1449 VISIT LOCKED DATE TIME: PHYSICIAN: KYLIE LARES MD RESOURCE: KYLIE LARES MD REASON FOR APPOINTMENT 1. RIGHT PIRIFORMIS INJECTION PAT CALL COMPLETED HISTORY OF PRESENT ILLNESS GENERAL: -. FALL RISK SCREENING: SCREENING :TWO OR MORE FALLS WITHOUT INJURY IN THE PAST YEAR PAIN SCREENING: PATIENT HAS A COMPLAINT OF ACUTE OR CHRONIC PAIN :YES INTENSITY OF PAIN (SCALE OF 1 TO 10):7 REPORTS RANGE OF 6-9 THIS PAST MONTH WHAT DOES YOUR PAIN FEEL LIKE:ACHING, BURNING PAIN IS INCREASED BY: WALKING, SITTING, NEEDS TO CHANGE POSITIONS FREQUENTLY FOR COMFORT PAIN IS DECREASED BY: HEATING PAD NURSING NOTE: -. PAIN CENTER INTAKE QUESTIONS: DO YOU HAVE A HISTORY OF MRSA? :NO DO YOU TAKE A BLOOD THINNERS? :NO DO YOU HAVE ANY BLEEDING DISORDERS? :NO ANY NEW NUMBNESS OR WEAKNESS IN YOUR LEGS OR ARMS? :NO ANY PACEMAKER,DEFIBRILLATOR, OR DORSAL COLUMN STIMULATOR? :NO DO YOU HAVE ANY RASHES OR OPEN SORES? :NO ARE YOU ALLERGIC TO IV DYE? :NO ARE YOU DIABETIC? :NO ANY NEW PROBLEMS WITH YOUR MEDICATIONS? :NO HAVE YOU RECEIVED A VACCINE IN THE PAST 30 DAYS? :NO DO YOU PLAN TO RECEIVE A VACCINE IN THE NEXT 21 DAYS? :NO DO YOU TAKE ANY IMMUNOSUPPRESSIVE MEDICATIONS? :NO ANY HISTORY OF SEIZURES? :NO ANY HISTORY OF CARDIAC ISSUES OR EVENTS? :NO DO YOU HAVE SLEEP APNEA? : NO. ANY RECENT HEAD INJURY? :NO DO YOU HAVE ANY NEW INFECTIONS? :NO IS THERE A CHANCE YOU COULD BE ? :NO ARE YOU BREAST FEEDING? :NO WHEN DID YOU LAST EAT? : -LAST NIGHT WHEN DID YOU LAST DRINK? : -THIS MORNING AT 0630 WHAT DID YOU LAST DRINK? : -COFFEE NAME OF PERSON DRIVING YOU HOME? : -CAB DO YOU HAVE ANY OTHER QUESTIONS OR CONCERNS? : - CURRENT MEDICATIONS TAKING TENS UNIT ELECTRO PADS ONE SET WITH FOUR PADS GEL PADS MAY USE TRANSDERMAL EVERY OTHER DAY DX:722.73 TAKING HEATING PAD MOIST/DRY - PAD 12 EXTERNALLY. DX: M51.16 PRN TAKING ALBUTEROL SULFATE HFA 108 (90 BASE) MCG/ACT AEROSOL SOLUTION 2 PUFFS NEEDED INHALATION EVERY 4 HRS PRN, NOTES: LAST NIGHT TAKING NABUMETONE 750 MG TABLET 2 TABLET ORALLY IN THE AM, ALWAYS TAKE WITH FOOD, NOTES: 09-18-192099 TAKING HYDROXYZINE HCL 50 MG TABLET 1 TABLET NEEDED ORALLY QHS PRN INSOMNIA, NOTES: 09-19-19699 TAKING HYDROXYZINE HCL 25 MG TABLET 1 TABLET ORALLY BID DURING THE DAY PRN ANXIETY/PAIN/SLEEP, NOTES: 09-20-192099 TAKING EFFEXOR 75 MG TABLET 1 TABLET WITH FOOD ORALLY DAILY, NOTES: 09-19-19699 TAKING EFFEXOR XR 150 MG CAPSULE EXTENDED RELEASE 24 HOUR 1 CAPSULE WITH FOOD ORALLY ONCE A DAY, NOTES: 09-19-19699 TAKING ATROVENT HFA 17 MCG/ACT AEROSOL SOLUTION 2 PUFFS INHALATION FOUR TIMES A DAY, NOTES: 09-18-19799 TAKING BACLOFEN 10 MG TABLET 0.5 TABLET TID X 3 DAYS THEN 1 TABLET WITH FOOD OR MILK ORALLY THREE TIMES A DAY, NOTES: 09-19-19699 TAKING BUSPIRONE HCL 30 MG TABLET 1 TABLET ORALLY TWICE A DAY, NOTES: 09-19-19799 TAKING VALIUM 5 MG TABLET 1 TABLET NEEDED ORALLY TWICE A DAY NEEDED, MDD #1.5, NOTES: 09-19-19699 TAKING NICODERM CQ 14 MG/24HR PATCH 24 HOUR 1 PATCH TO SKIN TRANSDERMAL ONCE A DAY, NOTES: 09-18-19799 TAKING NICODERM CQ 7 MG/24HR PATCH 24 HOUR 1 PATCH TO SKIN TRANSDERMAL ONCE A DAY, USE AFTER THE 14MG PATCHES ARE GONE. 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 SOCIAL HISTORY GENERAL: TOBACCO USE ARE YOU A:CURRENT SMOKER HOW MANY CIGARETTES A DAY DO YOU SMOKE?5 OR LESS PATIENT COUNSELED ON THE DANGERS OF TOBACCO USE AND URGED TO QUIT:05/13/2019 SMOKING CESSATION INFORMATION GIVEN05/02/2019 LATEX QUESTIONNAIRE LATEX ALLERGY : HAVE YOU EVER DEVELOPED ANY TYPE OF REACTION AFTER HANDLING LATEX PRODUCTS SUCH RUBBER GLOVES, CONDOMS, DIAPHRAGMS, BALLOONS, SOCKS, OR UNDERWEAR?NO LATEX ALLERGY : HAVE YOU EVER DEVELOPED ANY TYPE OF REACTION DURING OR AFTER DENTAL APPOINTMENT, VAGINAL/RECTAL EXAMINATION, SURGICAL PROCEDURE, OR ANY OTHER EXPOSURE?NO DATE ASKED : 05/13/2019 LATEX RISK : HAVE YOU EVER HAD ANY DIFFICULTY BREATHING OR HIVES AFTER EATING OR HANDLING ANY FRUITS, OR VEGETABLES; SUCH KIWI, BANANAS, STONE FRUITS, OR CHESTNUTSNO LATEX RISK : DO YOU HAVE A PREVIOUS PERSONAL HISTORY OF MORE THAN NINE SURGERIES, SPINA BIFIDA, OR REPEATED CATHERIZATIONS? NO LATEX RISK : ARE YOU FREQUENTLY EXPOSED TO LATEX PRODUCTS IN YOUR OCCUPATION?NO ALCOHOL SCREENING DID YOU HAVE A DRINK CONTAINING ALCOHOL IN THE PAST YEAR?YES HOW OFTEN DID YOU HAVE SIX OR MORE DRINKS ON ONE OCCASION IN THE PAST YEAR?LESS THAN MONTHLY (1 POINT) HOW MANY DRINKS DID YOU HAVE ON A TYPICAL DAY WHEN YOU WERE DRINKING IN THE PAST YEAR?1 OR 2 (0 POINTS) HOW OFTEN DID YOU HAVE A DRINK CONTAINING ALCOHOL IN THE PAST YEAR?MONTHLY OR LESS (1 POINT) POINTS2 INTERPRETATIONNEGATIVE RECREATIONAL DRUG USE DRUG USE?NO CAFFEINE CAFFEINE USE?YES HOW OFTEN AND HOW MUCH? 8 CUPS/ DAY AND 3 CUPS SODA/DAY SEXUAL HX HAD SEX IN THE LAST 12 MONTHS (VAGINAL, ORAL, OR ANAL)?NO HAVE YOU EVER HAD AN STD?NO HIV / HEP-C SCREENING HIV TEST OFFERED TO PATIENT:YES DATE OFFERED:10/08/2017 TEST ACCEPTED:NO HEP-C TEST OFFERED TO PATIENT:YES DATE OFFERED:10/08/2017 REASON:PATIENT DECLINED TEST ACCEPTED:NO REASON:PATIENT DECLINED BROCHURE PROVIDED TO PATIENTNO SHINTO [id number] NONE NO RELIGION BELIEFS THAT WOULD IMPACT HEALTH CARE. LANGUAGE LANGUAGES SPOKEN:FRISIAN EDUCATION LEVEL OF EDUCATION:HIGH SCHOOL GED LEARNING BARRIERS / SPECIAL NEEDS CHANGE FROM LAST VISIT?NO BARRIERS TO LEARNING?NO HEARING IMPAIRED?NO VISION IMPAIRED?YES COGNITIVELY IMPAIRED?NO :CORRECTIVE LENSES READING GLASSES READINESS TO LEARN?YES LEARNING PREFERENCES?NO LEARNING CAPABILITIES PRESENT?YES EMOTIONAL BARRIERS?NO SPECIAL DEVICES?YES :CANE ROTARY DRILLER NEEDED?NO DOMESTIC VIOLENCE DO YOU FEEL SAFE IN YOUR ENVIRONMENT?YES DIET: REGULAR. EXERCISE: NO REGULAR EXERCISE, INTERMITTENT, DAILY, WALKS. MARITAL STATUS: . NEW PATIENT PAIN DIARY TODAY'S VISIT NOTES, FROM 0-10, WHAT LEVEL IS YOUR PAIN TODAY? 7. PAIN CLINIC PFS, CLERGY, PUBLIC HEALTH REFERRALS PFS REFERRAL NEEDED?NO CLERGY REFERRAL NEEDED?NO PUBLIC HEALTH REFERRAL NEEDED?NO WAS THE PROVIDER NOTIFIED OF ANY PERTINENT INFO?YES HAS THE PATIENT BEEN EDUCATED REGARDING HIS/HER PLAN OF CARE?YES HAS THE PATIENT BEEN EDUCATED REGARDING PAIN, THE RISK FOR PAIN, THE IMPORTANCE OF EFFECTIVE PAIN MANAGEMENT, AND THE PAIN ASSESSMENT PROCESS?YES ADVANCE DIRECTIVE ADVANCE DIRECTIVE DISCUSSED WITH PATIENT:YES DECLINES INFORMATION AND ASSISTANCE WITH FORM HOSPITALIZATION/MAJOR DIAGNOSTIC PROCEDURE APPENDICITIS (APPARENTLY MEDICALLY MANAGED) 1983 ALLERGIC REACTION FROM CUCUMBER WITH CROATIAN DRESSING ON IT 1984 SURGERY RELATED 2017 VITAL SIGNS WT 161.4 LBS, HT 69 IN, BMI 23.83 INDEX, BP 124/74 MM HG, HR 78 /MIN, RR 18 /MIN, TEMP 97.1 F, OXYGEN SAT % 95%, SAFE IN ENV? (Y/N) YES, NA INITIALS AW 1314, REVIEWED BY: JUNIOR. EXAMINATION GENERAL EXAMINATION: THE PATIENT IS ALERT, ORIENTED TIMES THREE AND COOPERATIVE. HEART SHOWS REGULAR RHYTHM, NO MURMURS AND NO GALLOPS. LUNGS ARE CLEAR TO AUSCULTATION. 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 ALERT, ORIENTED RESP: 1. REGULAR, NO DYSPNEA COLOR: 1. PINK SKIN: 1. WARM, DRY POSITION: 1. PRONE VITALS: 1400 147/86 75 97% 18 KGULLO RN 1415 147/88 68 97% 18 LANO RN 1430 146/79 73 98 % 18 [facility] RAC[facility]: POST PAIN 2-3 POST PROCEDURE, DRESSING SITE DRY AND INTACT, GAIT STEADY, TEACHING COMPLETED, PATIENT ACKNOWLEDGES UNDERSTANDING WENT OVER ENTIRE DISCHARGE WITH PT INCLUDING DIARY INSTRUCTIONS, PATIENT DISCHARGED AT 1445 PT IS TAKING A CAB HIOME DR LARES IS AWARE AND THIS NURSE WILL CALL HIM AND CHECK ON HIM LATER TODAY PREOPERATIVE DIAGNOSES: 1. RIGHT PIRIFORMIS SYNDROME. 2 MYALGIAPOSTOPERATIVE DIAGNOSES: 1. RIGHT PIRIFORMIS SYNDROME. 2. MYALGIAPROCEDURE: RIGHT PIRIFORMIS MUSCLE BLOCK UNDER FLUOROSCOPIC GUIDANCE.ANESTHESIA: LOCAL.SURGEON: KYLIE DIANA M.D.PREOPERATIVE NOTE: THE PATIENT HAS HISTORY OF CHRONIC LOW BACK PAIN. I EVALUATED THE PATIENT AND REVIEWED THE CHART. I WENT THROUGH THE RISKS, BENEFITS AND ALTERNITIVES ASSOCIATED WITH THIS PROCEDURE AND THE PATIENT EXPRESSED WILLINGNESS TO PROCEED. I DISCUSSED THAT THE USE OF STEROIDS MAY CONTRIBUTE TO IMMUNOSUPPRESSION OF THE PATIENT'S BODY AGAINST INFECTIONS SUCH COVID-19. THE PATIENT IS AWARE OF THE POTENTIAL COMPLICATIONS ASSOCIATED WITH THIS VIRUS, INCLUDING, BUT NOT LIMITED TO, . I DISCUSSED THE USE OF DEXAMETHASONE INSTEAD OF KENALOG; HOWEVER, THE PATIENT WOULD LIKE TO MOVE FORWARD WITH KENALOG. THE PATIENT DENIES UNEXPLAINABLE WEIGHT LOSS, FEVER, CHILLS, OR CHANGES IN URINARY OR BOWEL CONTROL. THE PATIENT IS COVID-19 NEGATIVE.DESCRIPTION OF PROCEDURE: AFTER CONSENT WAS TAKEN, THE PATIENT WAS BROUGHT TO THE PROCEDURE ROOM AND THE PATIENT WAS PLACED IN THE PRONE POSITION. THE LUMBOSACRAL AREA WAS CLEANED WITH CHLORAPREP SOLUTION AND DRAPED ASEPTICALLY. THE PROCEDURE WAS DONE UNDER STERILE CONDITIONS. A TIMEOUT WAS PERFORMED WHERE LATERALITY AND THE SITE OF THE PROCEDURE WERE CHECKED AND CONFIRMED WITH EVERYONE IN THE ROOM. UNDER FLUOROSCOPIC GUIDANCE, THE TARGET POINT WAS SELECTED AT THE MIDDLE AREA BETWEEN THE RIGHT GREATER TROCHANTER OF THE FEMUR AND THE BORDER OF THE SACRUM. LIDOCAINE WAS USED TO NUMB THE SKIN AND THE SUBCUTANEOUS TISSUE BELOW IT. A SPINAL NEEDLE, 22-GAUGE, WAS ADVANCED UNDER FLUOROSCOPIC GUIDANCE TO THE SUBSTANCE OF THE RIGHT PIRIFORMIS MUSCLE. WHEN APPROPRIATE POSITION OF THE NEEDLE WAS ACHIEVED, ISOVUE-M DYE 30%, 5 ML, WAS INJECTED SHOWING ADEQUATE SPREAD OF THE DYE. THEN A SOLUTION OF 30 ML OF BUPIVACAINE, 0.25%, AND KENALOG 40 MG WAS INJECTED. THERE WAS NO EVIDENCE OF BLOOD, PARESTHESIA OR CEREBROSPINAL FLUID. THE PATIENT WAS SENT TO THE RECOVERY ROOM. THE PATIENT WAS MOVING ALL EXTREMITIES AND DOING WELL. THERE WERE NO COMPLICATIONS DURING THE PROCEDURE. FLUOROSCOPY TIME WAS 16 SECONDS.POSTOPERATIVE NOTE: I DISCUSSED THE PROCEDURE WITH THE PATIENT. I AM LOOKING FOR LONG LASTING PAIN RELIEF WITH THIS INTERVENTION. THE PATIENT WILL BE SEEN IN FOLLOWUP IN THE NEXT FEW WEEKS. INSTRUCTIONS WERE GIVEN, QUESTIONS WERE ANSWERED, AND PATIENT REPORTS UNDERSTANDING AND AGREES WITH THE PLAN. THE PATIENT IS AWARE TO STAY HOME FOR THE NEXT WEEK, IF POSSIBLE, DUE TO COVID-19. I, VELIA GOODMAN, DOCUMENTED THE ABOVE INFORMATION ACTING A SCRIBE FOR DR. LARES. I HAVE REVIEWED THE ABOVE DOCUMENT, WRITTEN BY VELIA GOODMAN, MACHINE STAPLER, AND I VERIFY THAT IT IS ACCURATE. PROCEDURE CODES 34820 INJ TRIGGER POINT 1/2 MUSCL, MODIFIERS: RT [id number] NEEDLE LOCALIZATION BY XRAY, MODIFIERS: 26 DISPOSITION & COMMUNICATION FOLLOW UP F/UP WITH CONTROL MANAGER (REASON: RT PIRIFORMIS) ELECTRONICALLY SIGNED BY KYLIE LARES MD, MD ON 09/19/2019 AT 04:59 PM EDT DISCLAIMER : THIS IS A VISIT SUMMARY EXTRACTED FROM THE [employer] CHART. IT IS NOT A COPY OF THE [employer] PROGRESS NOTE. JV
== END ==
LOC: M PAIN 13:15
PROVIDERS: ATTEND Anesthesiology
DX: G57.00 Lesion of sciatic nerve, unspecified lower limb (principal); M79.10 Myalgia, unspecified site
CPT/HCPCS: 20552; 76000; J3301; Q9967

== ENCOUNTER → 2019-10-28 | Outpatient (CLI) | payer OTHER, MEDICAID ==
[~2019-10-28] MED LIST changes: -BUPIVACAINE HCL 0.25% 30ML VIAL As Ordered ONE; -ISOVUE-M 300 61% 15ML VIAL As Ordered ONE; -LIDOCAINE 1% SDV 30ML VIAL As Ordered ONE; -TRIAMCINOLONE ACETONIDE SUSP 40 MG/ML VIAL (J3301) As Ordered ONE; -diazePAM 5 MG TAB As Ordered ONE; -oxyCODONE 5MG TAB As Ordered ONE
== END ==
LOC: M PAIN 10:00
PROVIDERS: ATTEND Family Medicine
DX: G57.01 Lesion of sciatic nerve, right lower limb (principal)

== ENCOUNTER → 2019-11-03 | Emergency (ER) | payer OTHER, MEDICAID ==
[~2019-11-03] MED LIST changes: +ALBU8.5H; +CLIN150C14 PO; +DICL1GEL3; +HYDR-3713; -NABU-119 PO; +NABU-53 PO; +TIZA4TAB4
== END | disposition home or self-care (01) ==
LOC: M ED 21:05
DX: F43.0 Acute stress reaction (principal); F10.129 Alcohol abuse with intoxication, unspecified; F33.9 Major depressive disorder, recurrent, unspecified; Z79.51 Long term (current) use of inhaled steroids; Z79.899 Other long term (current) drug therapy
CPT/HCPCS: 36415; 99284; G0480

== ENCOUNTER 2019-12-12 14:01 | Emergency (ER) | payer MEDICAID, OTHER ==
[~2019-12-12] VITALS: Ht 175.3 cm; Wt 73.7 kg
[~2019-12-12 14:01] MED LIST changes: -ALBU8.5H; -CLIN150C14 PO; -DICL1GEL3; -HYDR-3713; -TIZA4TAB4
[2019-12-12] MEDS ORDERED: TIZA4TAB4 (14:11)
[2019-12-12] MEDS ORDERED: ALBU8.5H (14:11)
[2019-12-12] MEDS ORDERED: DICL1GEL3 (14:11)
[2019-12-12] MEDS ORDERED: HYDR-3713 (14:11)
[2019-12-12] MEDS ORDERED: CLIN150C14 PO (15:04)
[2019-12-12] MEDS ORDERED: CLINDAMYCIN 150MG CAPSULE PO ONE (15:15)
[2019-12-12 15:22] VITALS: BP 140/60
== END 2019-12-12 15:23 | disposition home or self-care (01) ==
LOC: M ED 14:01
DX: K04.7 Periapical abscess without sinus (principal); Z79.51 Long term (current) use of inhaled steroids; Z79.899 Other long term (current) drug therapy; Z88.8 Allergy status to other drugs, medicaments and biological substances

== ENCOUNTER → 2019-12-12 | Outpatient (CLI) | payer OTHER, MEDICAID | LOC: M PAIN 13:45 | PROVIDERS: ATTEND Family Medicine | DX: Z53.29 Procedure and treatment not carried out because of patient's decision for other reasons (principal) ==

== ENCOUNTER → 2019-12-29 | Outpatient (CLI) | payer OTHER, MEDICAID ==
[~2019-12-29] MED LIST changes: +ALBU8.5H; +CLIN150C14 PO; +DICL1GEL3; +HYDR-3713; +TIZA4TAB4
--- NOTE | 2020-01-02 09:07 | ECWPNPC ---
PATIENT NAME: NIKHIL IRVIN : 1970 GENDER: MALE VISIT DATE: 12/29/2019 DISCHARGE DATE: 12/29/19 1453 VISIT LOCKED DATE TIME: PHYSICIAN: JUDI OSULLIVAN RESOURCE: JUDI OSULLIVAN REASON FOR APPOINTMENT 1. LOW BACK HISTORY OF PRESENT ILLNESS DEPRESSION SCREENING: PHQ-2 (2015 EDITION) LITTLE INTEREST OR PLEASURE IN DOING THINGS?NOT AT ALL FEELING DOWN, DEPRESSED, OR HOPELESS?NOT AT ALL TOTAL SCORE0 49-YEAR-OLD MALE IN FOR CHRONIC PAIN FOLLOW-UP. HE RATES HIS PAIN CURRENTLY AT A 7 OUT OF 10. HE DOES ADMIT TO NEW ONSET PAIN IN HIS NECK FURTHER STATING THAT IT FEELS LIKE IT CATCHES WHEN HE ROTATES HIS NECK. PAIN CENTER INTAKE QUESTIONS: DO YOU HAVE A HISTORY OF MRSA? :NO DO YOU TAKE A BLOOD THINNERS? :NO DO YOU HAVE ANY BLEEDING DISORDERS? :NO ANY NEW NUMBNESS OR WEAKNESS IN YOUR LEGS OR ARMS? :YES BOTH ARMS AND LEGS ANY PACEMAKER,DEFIBRILLATOR, OR DORSAL COLUMN STIMULATOR? :NO DO YOU HAVE ANY RASHES OR OPEN SORES? :NO ARE YOU ALLERGIC TO IV DYE? :NO ARE YOU DIABETIC? :NO ANY NEW PROBLEMS WITH YOUR MEDICATIONS? :NO HAVE YOU RECEIVED A VACCINE IN THE PAST 30 DAYS? :NO DO YOU PLAN TO RECEIVE A VACCINE IN THE NEXT 21 DAYS? :NO DO YOU NEED ANY PRESCRIPTION? :YES LYRICA DO YOU TAKE ANY IMMUNOSUPPRESSIVE MEDICATIONS? :NO IS THERE A CHANCE YOU COULD BE ? :NO ARE YOU BREAST FEEDING? :NO GENERAL: -. FALL RISK SCREENING: SCREENING :NO FALLS REPORTED IN THE LAST YEAR PAIN SCREENING: PATIENT HAS A COMPLAINT OF ACUTE OR CHRONIC PAIN :YES LOCATION OF PAIN:NECK, LOW BACK IN JUST MUCH PAIN HIS LOWER BACK INTENSITY OF PAIN (SCALE OF 1 TO 10):7 BOTH PAIN SCALE AT A 7 WHAT DOES YOUR PAIN FEEL LIKE:ACHING, BURNING, STABBING, SHOOTING DURATION:CONTINOUS, STEADY, ALL DAY PAIN IS INCREASED BY:ACTIVITIES PAIN IS DECREASED BY:OTHERS NOTHING HELPS WITH THE PAIN NURSING NOTE: -. CURRENT MEDICATIONS TAKING HEATING PAD MOIST/DRY - PAD 12 EXTERNALLY. DX: M51.16 PRN TAKING ALBUTEROL SULFATE HFA 108 (90 BASE) MCG/ACT AEROSOL SOLUTION 2 PUFFS NEEDED INHALATION EVERY 4 HRS PRN, NOTES: LAST NIGHT TAKING NABUMETONE 750 MG TABLET 2 TABLET ORALLY IN THE AM, ALWAYS TAKE WITH FOOD, NOTES: 09-18-192099 TAKING HYDROXYZINE HCL 50 MG TABLET 1 TABLET NEEDED ORALLY QHS PRN INSOMNIA, NOTES: 09-19-19699 TAKING HYDROXYZINE HCL 25 MG TABLET 1 TABLET ORALLY BID DURING THE DAY PRN ANXIETY/PAIN/SLEEP, NOTES: 09-20-192099 TAKING EFFEXOR 75 MG TABLET 1 TABLET WITH FOOD ORALLY DAILY, NOTES: 09-19-19699 TAKING EFFEXOR XR 150 MG CAPSULE EXTENDED RELEASE 24 HOUR 1 CAPSULE WITH FOOD ORALLY ONCE A DAY, NOTES: 09-19-19699 TAKING ATROVENT HFA 17 MCG/ACT AEROSOL SOLUTION 2 PUFFS INHALATION FOUR TIMES A DAY, NOTES: 09-18-19799 TAKING BACLOFEN 10 MG TABLET 0.5 TABLET TID X 3 DAYS THEN 1 TABLET WITH FOOD OR MILK ORALLY THREE TIMES A DAY, NOTES: 09-19-19699 TAKING BUSPIRONE HCL 30 MG TABLET 1 TABLET ORALLY TWICE A DAY, NOTES: 09-19-19799 TAKING VALIUM 5 MG TABLET 1 TABLET NEEDED ORALLY TWICE A DAY NEEDED, MDD #1.5, NOTES: 09-19-19699 TAKING NICODERM CQ 14 MG/24HR PATCH 24 HOUR 1 PATCH TO SKIN TRANSDERMAL ONCE A DAY, NOTES: 09-18-19799 TAKING NICODERM CQ 7 MG/24HR PATCH 24 HOUR 1 PATCH TO SKIN TRANSDERMAL ONCE A DAY, USE AFTER THE 14MG PATCHES ARE GONE. TAKING TIZANIDINE HCL 4 MG TABLET 1 TABLET NEEDED ORALLY THREE TIMES A DAY, NOTES: 09-18-192099 TAKING LYRICA 200 MG CAPSULE 1 CAPSULE ORALLY Q 8 HRS MDD=3, NOTES: 09-19-19799 NOT-TAKING TENS UNIT ELECTRO PADS ONE SET WITH FOUR PADS GEL PADS MAY USE TRANSDERMAL EVERY OTHER DAY DX:722.73 NOT-TAKING OXYBUTYNIN CHLORIDE 5 MG TABLET 1 TABLET ORALLY TWICE A DAY, NOTES: COUPLE DAYS MEDICATION LIST REVIEWED AND RECONCILED WITH THE PATIENT PAST MEDICAL HISTORY FIBROMYALGIA COPD - EMPHYSEMA, GOLD II/A PER SPIROMETRY 05/2017 LUMBAGO EPIGASTRIC HERNIA DUST AND POLLEN ALLERGIES VITAMIN D DEFICIENCY TOBACCO USE 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 SOCIAL HISTORY GENERAL: TOBACCO USE ARE YOU A:CURRENT SMOKER HOW MANY CIGARETTES A DAY DO YOU SMOKE?5 OR LESS PATIENT COUNSELED ON THE DANGERS OF TOBACCO USE AND URGED TO QUIT:05/13/2019 SMOKING CESSATION INFORMATION GIVEN05/02/2019 LATEX QUESTIONNAIRE LATEX ALLERGY : HAVE YOU EVER DEVELOPED ANY TYPE OF REACTION AFTER HANDLING LATEX PRODUCTS SUCH RUBBER GLOVES, CONDOMS, DIAPHRAGMS, BALLOONS, SOCKS, OR UNDERWEAR?NO LATEX ALLERGY : HAVE YOU EVER DEVELOPED ANY TYPE OF REACTION DURING OR AFTER DENTAL APPOINTMENT, VAGINAL/RECTAL EXAMINATION, SURGICAL PROCEDURE, OR ANY OTHER EXPOSURE?NO LATEX RISK : HAVE YOU EVER HAD ANY DIFFICULTY BREATHING OR HIVES AFTER EATING OR HANDLING ANY FRUITS, OR VEGETABLES; SUCH KIWI, BANANAS, STONE FRUITS, OR CHESTNUTSNO LATEX RISK : DO YOU HAVE A PREVIOUS PERSONAL HISTORY OF MORE THAN NINE SURGERIES, SPINA BIFIDA, OR REPEATED CATHERIZATIONS? NO LATEX RISK : ARE YOU FREQUENTLY EXPOSED TO LATEX PRODUCTS IN YOUR OCCUPATION?NO DATE ASKED : 12/29/2019 ALCOHOL SCREENING DID YOU HAVE A DRINK CONTAINING ALCOHOL IN THE PAST YEAR?YES HOW OFTEN DID YOU HAVE SIX OR MORE DRINKS ON ONE OCCASION IN THE PAST YEAR?LESS THAN MONTHLY (1 POINT) HOW MANY DRINKS DID YOU HAVE ON A TYPICAL DAY WHEN YOU WERE DRINKING IN THE PAST YEAR?1 OR 2 (0 POINTS) HOW OFTEN DID YOU HAVE A DRINK CONTAINING ALCOHOL IN THE PAST YEAR?MONTHLY OR LESS (1 POINT) POINTS2 INTERPRETATIONNEGATIVE RECREATIONAL DRUG USE DRUG USE?NO CAFFEINE CAFFEINE USE?YES HOW OFTEN AND HOW MUCH? 8 CUPS/ DAY AND 3 CUPS SODA/DAY SEXUAL HX HAD SEX IN THE LAST 12 MONTHS (VAGINAL, ORAL, OR ANAL)?NO HAVE YOU EVER HAD AN STD?NO HIV / HEP-C SCREENING HIV TEST OFFERED TO PATIENT:YES DATE OFFERED:10/08/2017 TEST ACCEPTED:NO HEP-C TEST OFFERED TO PATIENT:YES DATE OFFERED:10/08/2017 REASON:PATIENT DECLINED TEST ACCEPTED:NO REASON:PATIENT DECLINED BROCHURE PROVIDED TO PATIENTNO ALEVISM [id number] NONE NO BAPTISM BELIEFS THAT WOULD IMPACT HEALTH CARE. LANGUAGE LANGUAGES SPOKEN:GUYANESE EDUCATION LEVEL OF EDUCATION:HIGH SCHOOL GED LEARNING BARRIERS / SPECIAL NEEDS CHANGE FROM LAST VISIT?NO BARRIERS TO LEARNING?NO HEARING IMPAIRED?NO VISION IMPAIRED?YES COGNITIVELY IMPAIRED?NO :CORRECTIVE LENSES READING GLASSES READINESS TO LEARN?YES LEARNING PREFERENCES?NO LEARNING CAPABILITIES PRESENT?YES EMOTIONAL BARRIERS?NO SPECIAL DEVICES?YES :CANE GREEN CHAIN PULLER NEEDED?NO DOMESTIC VIOLENCE DO YOU FEEL SAFE IN YOUR ENVIRONMENT?YES DIET: REGULAR. EXERCISE: NO REGULAR EXERCISE, INTERMITTENT, DAILY, WALKS. MARITAL STATUS: . NEW PATIENT PAIN DIARY TODAY'S VISIT NOTES, FROM 0-10, WHAT LEVEL IS YOUR PAIN TODAY? 7. PAIN CLINIC PFS, CLERGY, PUBLIC HEALTH REFERRALS PFS REFERRAL NEEDED?NO CLERGY REFERRAL NEEDED?NO PUBLIC HEALTH REFERRAL NEEDED?NO WAS THE PROVIDER NOTIFIED OF ANY PERTINENT INFO?YES HAS THE PATIENT BEEN EDUCATED REGARDING HIS/HER PLAN OF CARE?YES HAS THE PATIENT BEEN EDUCATED REGARDING PAIN, THE RISK FOR PAIN, THE IMPORTANCE OF EFFECTIVE PAIN MANAGEMENT, AND THE PAIN ASSESSMENT PROCESS?YES ADVANCE DIRECTIVE ADVANCE DIRECTIVE DISCUSSED WITH PATIENT:YES DECLINES INFORMATION AND ASSISTANCE WITH FORM HOSPITALIZATION/MAJOR DIAGNOSTIC PROCEDURE APPENDICITIS (APPARENTLY MEDICALLY MANAGED) 1983 ALLERGIC REACTION FROM CUCUMBER WITH RWANDAN DRESSING ON IT 1985 SURGERY RELATED 2018 REVIEW OF SYSTEMS CONSTITUTIONAL: ANY RECENT FEVER NO . CHILLS NO . WEIGHT CHANGE OF UNKNOWN REASONS NO . GASTROENTEROLOGY: NEW UNEXPLAINABLE CHANGES IN BOWEL CONTROL NO . CONSTIPATION NO . GENITOURINARY: ANY NEW CHANGE IN BLADDER CONTROL? NO . NEUROLOGY: NEW ONSET DIZZINESS OR NEUROLOGICAL CHANGES NOT MENTIONED NO . NEW NUMBNESS OR PAIN PATTERNS NOT MENTIONED AND PERTINENT TO TODAY'S VISIT NO . CARDIOLOGY: NEW CHEST PRESSURE NO . NEW CHEST PAIN NO . RESPIRATORY: UNEXPLAINABLE COUGH NO . NEW SHORTNESS OF BREATH NO . VITAL SIGNS WT 160.8 LBS, HT 69 IN, BMI 23.74 INDEX, BP 116/77 MM HG, HR 68 /MIN, RR 18 /MIN, TEMP 96.9 F, OXYGEN SAT % 98%, SAFE IN ENV? (Y/N) YES, NA INITIALS SC 14:19, REVIEWED BY: CURLY. EXAMINATION GENERAL EXAMINATION: GENERALNO ACUTE DISTRESS, WELL NOURISHED AND HYDRATED. PSYCHAPPROPRIATE MOOD AND AFFECT . NECK:POINT TENDER BILATERAL NECK AND SHOULDERS, SURROUNDING SKIN SHOWS NO ERYTHEMA, ECCHYMOSIS, INCREASED WARMTH, AND/OR SKIN ERUPTIONS NOTED. BANDS OF RESTRICTIVE TISSUE NOTED OVER TRIGGER POINTS. . LUNGS:CLEAR TO AUSCULTATION BILATERALLY, NO WHEEZES, RHONCHI, RALES. HEART:NO MURMURS, REGULAR RATE AND RHYTHM. ASSESSMENTS MYALGIA, OTHER SITE - M79.18 (PRIMARY) CERVICALGIA - M54.2 TREATMENT MYALGIA, OTHER SITE NOTES: BILATERAL NECK AND SHOULDER TRIGGER POINT INJECTIONS. CLINICAL NOTES: 49-YEAR-OLD MALE IN FOR CHRONIC PAIN FOLLOW-UP. GIVEN PRESENTING SYMPTOMS AND RESULTS OF PHYSICAL EXAMINATION RECOMMEND OBTAINING A CERVICAL MRI, BILATERAL SHOULDER AND NECK TRIGGER POINT INJECTIONS. PATIENT HAS EXCESS UNDERSTANDING OF AND WAS IN AGREEMENT WITH TREATMENT PLAN. GIVEN TIME TO ASK QUESTIONS AND EXPRESS CONCERNS. CERVICALGIA [facility] MRI SPINE, CERVICAL WITHOUT [id number] 12/30/2019 2:31:10 PM > MRI CERVICAL SPINE W/O CONTRAST WAS APPROVED AUTH # [id number] VALID FROM 12/30/19-02/13/20. AUTHED FOR MAGNETIC DIAGNOSTIC [facility]OURCES OF [facility] PREVENTIVE MEDICINE (MALE) PREVENTIVE WELLNESS PLAN: TODAY'S VISIT PATIENT PRESENTS TODAY FOR: TPI AND JUDI WILL SEE HIM POST PROC. AND PT UNDERSTANDS AND ACKNOWLEDGES PLAN FOR CARE DISPOSITION & COMMUNICATION FOLLOW UP POSTPROCEDURE (REASON: BILATERAL NECK AND SHOULDER TPI, CERVICAL MRI) ELECTRONICALLY SIGNED BY NARCISO TRUONG ON 01/02/2020 AT 09:04 AM EDT DISCLAIMER : THIS IS A VISIT SUMMARY EXTRACTED FROM THE [employer] CHART. IT IS NOT A COPY OF THE [employer] PROGRESS NOTE. JV
== END ==
LOC: M PAIN 14:00
PROVIDERS: ATTEND Family Medicine
DX: M79.18 Myalgia, other site (principal); M54.2 Cervicalgia; J44.9 Chronic obstructive pulmonary disease, unspecified; F17.210 Nicotine dependence, cigarettes, uncomplicated; Z91.018 Allergy to other foods; Z91.030 Bee allergy status; Z79.899 Other long term (current) drug therapy

== ENCOUNTER → 2020-01-07 | Outpatient (CLI) | payer OTHER, MEDICAID | LOC: M LABSMTC 11:08 | PROVIDERS: ATTEND Anesthesiology | DX: Z20.828 Contact with and (suspected) exposure to other viral communicable diseases (principal) | CPT/HCPCS: C9803; U0003 ==

== ENCOUNTER → 2020-01-12 | Outpatient (CLI) | payer OTHER, MEDICAID ==
[~2020-01-12] MED LIST changes: +BUPIVACAINE HCL 0.25% 10ML VIAL As Ordered ONE; +BUPIVACAINE HCL 0.25% 30ML VIAL As Ordered ONE; +TRIAMCINOLONE ACETONIDE SUSP 40 MG/ML VIAL (J3301) As Ordered ONE; +diazePAM 5 MG TAB As Ordered ONE; +oxyCODONE 5MG TAB As Ordered ONE
--- NOTE | 2020-01-19 14:33 | ECWPNPC ---
PATIENT NAME: NIKHIL IRVIN : 1970 GENDER: MALE VISIT DATE: 01/12/2020 DISCHARGE DATE: 01/12/201436 VISIT LOCKED DATE TIME: PHYSICIAN: KYLIE LARES MD RESOURCE: KYLIE LARES MD REASON FOR APPOINTMENT 1. BILATERAL NECK AND SHOULDER TPI HISTORY OF PRESENT ILLNESS PAIN CENTER INTAKE QUESTIONS: DO YOU HAVE A HISTORY OF MRSA? :NO DO YOU TAKE A BLOOD THINNERS? :NO DO YOU HAVE ANY BLEEDING DISORDERS? :NO ANY NEW NUMBNESS OR WEAKNESS IN YOUR LEGS OR ARMS? :NO ANY PACEMAKER,DEFIBRILLATOR, OR DORSAL COLUMN STIMULATOR? :YES APEX (L1/L2) DO YOU HAVE ANY RASHES OR OPEN SORES? :NO ARE YOU ALLERGIC TO IV DYE? :NO ARE YOU DIABETIC? :NO ANY NEW PROBLEMS WITH YOUR MEDICATIONS? :NO HAVE YOU RECEIVED A VACCINE IN THE PAST 30 DAYS? :NO DO YOU PLAN TO RECEIVE A VACCINE IN THE NEXT 21 DAYS? :NO DO YOU TAKE ANY IMMUNOSUPPRESSIVE MEDICATIONS? :NO ANY HISTORY OF SEIZURES? :NO ANY HISTORY OF CARDIAC ISSUES OR EVENTS? :NO DO YOU HAVE SLEEP APNEA? :NO ANY RECENT HEAD INJURY? :NO DO YOU HAVE ANY NEW INFECTIONS? :NO IS THERE A CHANCE YOU COULD BE ? :NO ARE YOU BREAST FEEDING? :NO WHEN DID YOU LAST EAT? : 01/12/20629 WHEN DID YOU LAST DRINK? : 01/12/20629 WHAT DID YOU LAST DRINK? : COFFEE NAME OF PERSON DRIVING YOU HOME? : [employer] DO YOU HAVE ANY OTHER QUESTIONS OR CONCERNS? : NO GENERAL: -. FALL RISK SCREENING: SCREENING :TWO OR MORE FALLS WITH INJURY IN THE PAST YEAR PATIENT REPORTS MULTIPLE FALLS, MOST RECENT FELL OVER RAILING, BUT DID NOT SEEK MEDICAL ATTENTION. PAIN SCREENING: PATIENT HAS A COMPLAINT OF ACUTE OR CHRONIC PAIN :YES LOCATION OF PAIN:NECK, UPPER BACK, MID BACK, LOW BACK INTENSITY OF PAIN (SCALE OF 1 TO 10):7 WHAT DOES YOUR PAIN FEEL LIKE:STABBING, OTHER "OUCH" DURATION:CONTINOUS PLAN/GOALS/TREATMENT/INTERVENTION/FOLLOW UP:SEE PLAN NURSING NOTE: -. CURRENT MEDICATIONS TAKING OXYBUTYNIN CHLORIDE 5 MG TABLET 1 TABLET ORALLY TWICE A DAY, NOTES: COUPLE DAYS TAKING HEATING PAD MOIST/DRY - PAD 12 EXTERNALLY. DX: M51.16 PRN, NOTES: 01/12/20929 TAKING ALBUTEROL SULFATE HFA 108 (90 BASE) MCG/ACT AEROSOL SOLUTION 2 PUFFS NEEDED INHALATION EVERY 4 HRS PRN, NOTES: 01/12/20929 TAKING HYDROXYZINE HCL 50 MG TABLET 1 TABLET NEEDED ORALLY QHS PRN INSOMNIA, NOTES: 01/12/20199 TAKING HYDROXYZINE HCL 25 MG TABLET 1 TABLET ORALLY BID DURING THE DAY PRN ANXIETY/PAIN/SLEEP, NOTES: 01/12/20929 TAKING EFFEXOR 75 MG TABLET 1 TABLET WITH FOOD ORALLY DAILY, NOTES: 01/11/20 1800 TAKING EFFEXOR XR 150 MG CAPSULE EXTENDED RELEASE 24 HOUR 1 CAPSULE WITH FOOD ORALLY ONCE A DAY, NOTES: 01/12/20929 TAKING ATROVENT HFA 17 MCG/ACT AEROSOL SOLUTION 2 PUFFS INHALATION FOUR TIMES A DAY, NOTES: 01/12/20929 TAKING BACLOFEN 10 MG TABLET 0.5 TABLET TID X 3 DAYS THEN 1 TABLET WITH FOOD OR MILK ORALLY THREE TIMES A DAY, NOTES: 01/12/20929 TAKING BUSPIRONE HCL 30 MG TABLET 1 TABLET ORALLY TWICE A DAY, NOTES: 01/12/20929 TAKING VALIUM 5 MG TABLET 1 TABLET NEEDED ORALLY TWICE A DAY NEEDED, MDD #1.5, NOTES: 01/12/20929 TAKING NICODERM CQ 7 MG/24HR PATCH 24 HOUR 1 PATCH TO SKIN TRANSDERMAL ONCE A DAY, USE AFTER THE 14MG PATCHES ARE GONE., NOTES: 01/11/20 TAKING TIZANIDINE HCL 4 MG TABLET 1 TABLET NEEDED ORALLY THREE TIMES A DAY, NOTES: 01/12/20929 TAKING LYRICA 200 MG CAPSULE 1 CAPSULE ORALLY Q 8 HRS MDD=3, NOTES: 01/12/20929 NOT-TAKING TENS UNIT ELECTRO PADS ONE SET WITH FOUR PADS GEL PADS MAY USE TRANSDERMAL EVERY OTHER DAY DX:722.73 NOT-TAKING NABUMETONE 750 MG TABLET 2 TABLET ORALLY IN THE AM, ALWAYS TAKE WITH FOOD NOT-TAKING NICODERM CQ 14 MG/24HR PATCH 24 HOUR 1 PATCH TO SKIN TRANSDERMAL ONCE A DAY MEDICATION LIST REVIEWED AND RECONCILED WITH THE PATIENT PAST MEDICAL HISTORY FIBROMYALGIA COPD - EMPHYSEMA, GOLD II/A PER SPIROMETRY 05/2017 L[facility]O EPIGASTRIC HERNIA DUST AND POLLEN ALLERGIES VITAMIN D DEFICIENCY TOBACCO USE 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 SOCIAL HISTORY GENERAL: TOBACCO USE ARE YOU A:CURRENT SMOKER HOW MANY CIGARETTES A DAY DO YOU SMOKE?5 OR LESS PATIENT COUNSELED ON THE DANGERS OF TOBACCO USE AND URGED TO QUIT:01/12/2020 SMOKING CESSATION INFORMATION GIVEN01/12/2020 E-CIGARETTE PATIENT ATTEMPTING TO QUIT. LATEX QUESTIONNAIRE LATEX ALLERGY : HAVE YOU EVER DEVELOPED ANY TYPE OF REACTION AFTER HANDLING LATEX PRODUCTS SUCH RUBBER GLOVES, CONDOMS, DIAPHRAGMS, BALLOONS, SOCKS, OR UNDERWEAR?NO LATEX ALLERGY : HAVE YOU EVER DEVELOPED ANY TYPE OF REACTION DURING OR AFTER DENTAL APPOINTMENT, VAGINAL/RECTAL EXAMINATION, SURGICAL PROCEDURE, OR ANY OTHER EXPOSURE?NO DATE ASKED : 12/29/2019 LATEX RISK : HAVE YOU EVER HAD ANY DIFFICULTY BREATHING OR HIVES AFTER EATING OR HANDLING ANY FRUITS, OR VEGETABLES; SUCH KIWI, BANANAS, STONE FRUITS, OR CHESTNUTSNO LATEX RISK : DO YOU HAVE A PREVIOUS PERSONAL HISTORY OF MORE THAN NINE SURGERIES, SPINA BIFIDA, OR REPEATED CATHERIZATIONS? NO LATEX RISK : ARE YOU FREQUENTLY EXPOSED TO LATEX PRODUCTS IN YOUR OCCUPATION?NO ALCOHOL SCREENING DID YOU HAVE A DRINK CONTAINING ALCOHOL IN THE PAST YEAR?YES HOW OFTEN DID YOU HAVE SIX OR MORE DRINKS ON ONE OCCASION IN THE PAST YEAR?LESS THAN MONTHLY (1 POINT) HOW MANY DRINKS DID YOU HAVE ON A TYPICAL DAY WHEN YOU WERE DRINKING IN THE PAST YEAR?1 OR 2 (0 POINTS) HOW OFTEN DID YOU HAVE A DRINK CONTAINING ALCOHOL IN THE PAST YEAR?MONTHLY OR LESS (1 POINT) POINTS2 INTERPRETATIONNEGATIVE RECREATIONAL DRUG USE DRUG USE?NO CAFFEINE CAFFEINE USE?YES HOW OFTEN AND HOW MUCH? 8 CUPS/ DAY AND 3 CUPS SODA/DAY SEXUAL HX HAD SEX IN THE LAST 12 MONTHS (VAGINAL, ORAL, OR ANAL)?NO HAVE YOU EVER HAD AN STD?NO HIV / HEP-C SCREENING HIV TEST OFFERED TO PATIENT:YES DATE OFFERED:10/08/2017 TEST ACCEPTED:NO HEP-C TEST OFFERED TO PATIENT:YES DATE OFFERED:10/08/2017 REASON:PATIENT DECLINED TEST ACCEPTED:NO REASON:PATIENT DECLINED BROCHURE PROVIDED TO PATIENTNO CHRISTIANITY [id number] NONE NO FAITH BELIEFS THAT WOULD IMPACT HEALTH CARE. LANGUAGE LANGUAGES SPOKEN:ROMANSH EDUCATION LEVEL OF EDUCATION:HIGH SCHOOL GED LEARNING BARRIERS / SPECIAL NEEDS CHANGE FROM LAST VISIT?NO BARRIERS TO LEARNING?NO HEARING IMPAIRED?NO VISION IMPAIRED?YES COGNITIVELY IMPAIRED?NO :CORRECTIVE LENSES READING GLASSES READINESS TO LEARN?YES LEARNING PREFERENCES?NO LEARNING CAPABILITIES PRESENT?YES EMOTIONAL BARRIERS?NO SPECIAL DEVICES?YES :CANE MANAGER FORMS NEEDED?NO DOMESTIC VIOLENCE DO YOU FEEL SAFE IN YOUR ENVIRONMENT?YES DIET: REGULAR. EXERCISE: NO REGULAR EXERCISE, INTERMITTENT, DAILY, WALKS. MARITAL STATUS: . NEW PATIENT PAIN DIARY TODAY'S VISIT NOTES, FROM 0-10, WHAT LEVEL IS YOUR PAIN TODAY? 7. PAIN CLINIC PFS, CLERGY, PUBLIC HEALTH REFERRALS PFS REFERRAL NEEDED?NO CLERGY REFERRAL NEEDED?NO PUBLIC HEALTH REFERRAL NEEDED?NO WAS THE PROVIDER NOTIFIED OF ANY PERTINENT INFO?YES HAS THE PATIENT BEEN EDUCATED REGARDING HIS/HER PLAN OF CARE?YES HAS THE PATIENT BEEN EDUCATED REGARDING PAIN, THE RISK FOR PAIN, THE IMPORTANCE OF EFFECTIVE PAIN MANAGEMENT, AND THE PAIN ASSESSMENT PROCESS?YES ADVANCE DIRECTIVE ADVANCE DIRECTIVE DISCUSSED WITH PATIENT:YES DECLINES INFORMATION AND ASSISTANCE WITH FORM. 01/12/20 HOSPITALIZATION/MAJOR DIAGNOSTIC PROCEDURE APPENDICITIS (APPARENTLY MEDICALLY MANAGED) 1983 ALLERGIC REACTION FROM CUCUMBER WITH INDIAN DRESSING ON IT 1984 SURGERY RELATED 2018 VITAL SIGNS WT 158.0 LBS, HT 69 IN, BMI 23.33 INDEX, BP 119/55 MM HG, HR 70 /MIN, RR 18 /MIN, TEMP 97.8 F, OXYGEN SAT % 96%, SAFE IN ENV? (Y/N) YES, NA INITIALS AW 1310, REVIEWED BY: MT. HAWKINS MYALGIA - M79.1 (PRIMARY), RISK: (NULL) TREATMENT MYALGIA MEDICATION: VALIUM TAB 5MG ORALLY (DIAZEPAM)JUAN HDEZ 01/12/2020 1:41:55 PM > VERIFIED LOT# [id number] EXP: 05/2020 CHARLES FISH 01/12/2020 1:48:06 PM > ADMINISTERED MEDICATION: OXYCODONE HCL TAB 10MG ORALLYJUAN HDEZ 01/12/2020 1:42:10 PM > VERIFIED LOT# [id number] EXP: 04/2021 CHARLES FISH 01/12/2020 1:48:55 PM > ADINISTERED PROCEDURES PAIN NURSING RECORD PRE-PROCEDURE IV SITE N/A PROCEDURE IN ROOM 1320, PHYSICIAN IN ROOM 1406, START 1410, FINISH 1414, PHYSICIAN OUT OF ROOM 1416, OUT OF ROOM 1435, STEROID KENALOG, O2 RA, ECG N/A, PATIENT SHIELDED NO, SAFETY STRAP NO, PREP ALCOHOL BY DR LARES, IV INFUSED N/A, DRESSING TEGADERM BY DR LARES VITALS: CHARLES FISH 01/12/2020 2:26:09 PM > 120/75 HR 66 96% DISCHARGE: POST PAIN 07/07, DRESSING SITE TEGADERMS INTACT, IV N/A, GAIT STEADY, PATIENT DISCHARGED AT D/C AT 1435 PN TRIGGER POINT INJECTION WITH STEROIDS PRE PROCEDURE DIAGNOSIS 1. MYALGIA 2. PAIN AT BILATERAL NECK AREA AND BILATERAL SHOULDER AREA POST PROCEDURE DIAGNOSIS 1. MYALGIA 2. PAIN AT BILATERAL NECK AREA AND BILATERAL SHOULDER AREA PROCEDURE TRIGGER POINT INJECTION AT BILATERAL NECK AREA AND BILATERAL SHOULDER AREA SURGEON DR. KYLIE LARES EARTH SCIENCE PROFESSOR NONE ANESTHESIA LOCAL PRE PROCEDURE NOTE THE PATIENT HAS A HISTORY OF CHRONIC PAIN AT THE RIGHT AND LEFT NECK AREA AND RIGHT AND LEFT SHOULDER AREA. I EVALUATED THE PATIENT AND REVIEWED THE CHART. THERE IS EVIDENCE OF BANDS OF TISSUE WITH RESTRICTION OF MOVEMENT AND PRESENCE OF TRIGGER POINT AT THE RIGHT AND LEFT NECK AREA AND RIGHT AND LEFT SHOULDER AREA. I WENT OVER THE RISKS, ALTERNATIVES, AND BENEFITS ASSOCIATED WITH THIS PROCEDURE. I DISCUSSED THAT THE USE OF STEROIDS MAY CONTRIBUTE TO IMMUNOSUPPRESSION OF THE PATIENT'S BODY AGAINST INFECTIONS SUCH COVID-19. THE PATIENT IS AWARE OF THE POTENTIAL COMPLICATIONS ASSOCIATED WITH THIS VIRUS, INCLUDING, BUT NOT LIMITED TO, . THE PATIENT WOULD LIKE TO PROCEED AND GIVE CONSENT TO PERFORMED THE PROCEDURE. THE PATIENT DENIES UNEXPLAINABLE WEIGHT LOSS, FEVER, CHILLS, OR NEW CHANGES IN URINARY OR BOWEL CONTROL. THE PATIENT IS COVID-19 NEGATIVE DESCRIPTION OF PROCEDURE THE PATIENT WAS BROUGHT TO THE PROCEDURE ROOM AND PLACED IN THE SITTING POSITION. THE AREA WAS CLEANED WITH ALCOHOL. THE PROCEDURE WAS DONE USING ASEPTIC STERILE TECHNIQUE. A TIMEOUT WAS PERFORMED WHERE LATERALITY AND THE SITE OF THE PROCEDURE WERE CHECKED AND CONFIRMED WITH EVERYONE IN THE ROOM. USING A 25-GAUGE NEEDLE, TRIGGER POINTS WERE INJECTED AT THE RIGHT AND LEFT NECK AREA AND RIGHT AND LEFT SHOULDER AREA WITH A TOTAL OF 40 ML OF BUPIVACAINE 0.25% AND KENALOG 40 MG. THE MEDICATIONS WERE VERIFIED WITH THE NURSE. THERE WAS NO EVIDENCE OF BLOOD OR PARESTHESIA DURING THE PROCEDURE. THE PATIENT WAS SENT TO THE RECOVERY ROOM. THE PATIENT WAS MOVING THE EXTREMITIES AND DOING WELL. THERE WERE NO COMPLICATIONS DURING THE PROCEDURE. ESTIMATED BLOOD LOSS WAS LESS THAN 5 ML POST PROCEDURE NOTE THE PATIENT IS ALSO HAVING SYMPTOMS LOWER, WE SHOULDER CONSIDER TRIGGER POINT INJECTIONS IN THE THORACIC AREA. THE PROCEDURE DONE WAS DISCUSSED WITH THE PATIENT. THE PATIENT WILL BE SEEN IN A FOLLOW UP IN THE NEXT FEW WEEKS. I AM LOOKING FOR LONG LASTING PAIN RELIEF FOR THE PATIENT WITH THIS INTERVENTION. INSTRUCTIONS WERE GIVEN, QUESTIONS WERE ANSWERED, AND THE PATIENT EXPRESSED UNDERSTANDING AND AGREES WITH THE PLAN. I, VELIA GOODMAN, DOCUMENTED THE ABOVE INFORMATION ACTING A SCRIBE FOR DR. LARES. I HAVE REVIEWED THE ABOVE DOCUMENT, WRITTEN BY VELIA GOODMAN, WEATHERIZATION SPECIALIST, AND I VERIFY THAT IT IS ACCURATE PREVENTIVE MEDICINE (MALE) PREVENTIVE WELLNESS PLAN: TODAY'S VISIT PATIENT PRESENTS TODAY FOR: D/C INSTRUCTIONS REVIEWED WITH PT. PT VERBALIZED UNDERSTNDING. GAIT STEADY PROCEDURE CODES [id number] INJECT TRIGGER POINTS 3/> DISPOSITION & COMMUNICATION FOLLOW UP FOLLOW UP WITH SIXTH GRADE TEACHER (REASON: POST TPI BILATERAL NECK AND SHOULDER ) ELECTRONICALLY SIGNED BY KYLIE LARES MD, MD ON 01/19/2020 AT 11:55 AM EDT DISCLAIMER : THIS IS A VISIT SUMMARY EXTRACTED FROM THE [employer] CHART. IT IS NOT A COPY OF THE [employer] PROGRESS NOTE. JV
== END ==
LOC: M PAIN 13:30
PROVIDERS: ATTEND Anesthesiology
DX: M79.18 Myalgia, other site (principal); M79.7 Fibromyalgia; J44.9 Chronic obstructive pulmonary disease, unspecified; F17.210 Nicotine dependence, cigarettes, uncomplicated; Z91.018 Allergy to other foods; Z91.030 Bee allergy status; Z79.899 Other long term (current) drug therapy
CPT/HCPCS: 20553; J3301

== ENCOUNTER → 2020-01-31 | Outpatient (CLI) | payer OTHER, MEDICAID ==
[~2020-01-31] MED LIST changes: -BUPIVACAINE HCL 0.25% 10ML VIAL As Ordered ONE; -BUPIVACAINE HCL 0.25% 30ML VIAL As Ordered ONE; -TRIAMCINOLONE ACETONIDE SUSP 40 MG/ML VIAL (J3301) As Ordered ONE; -diazePAM 5 MG TAB As Ordered ONE; -oxyCODONE 5MG TAB As Ordered ONE
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
== END ==
LOC: M PAIN 13:45
PROVIDERS: ATTEND Family Medicine
DX: M79.18 Myalgia, other site (principal); J44.9 Chronic obstructive pulmonary disease, unspecified; F17.210 Nicotine dependence, cigarettes, uncomplicated; Z91.018 Allergy to other foods; Z91.030 Bee allergy status; Z79.899 Other long term (current) drug therapy

== ENCOUNTER 2020-02-06 20:56 | Emergency (ER) | payer OTHER, MEDICAID ==
[~2020-02-06] VITALS: Ht 175.3 cm; Wt 71.8 kg
[2020-02-06] MEDS ORDERED: HALOPERIDOL 5MG/ML VIAL (J1630 PER 1) IM ONE (21:15)
[2020-02-06] MEDS ORDERED: diphenhydrAMINE 50MG/ML VIAL (J1200) IM ONE (21:15)
[2020-02-06] MEDS ORDERED: LORazepam 2 MG/ML VIAL IM ONE (21:15)
[2020-02-06 21:35] LABS: HEMOGLOBIN 16.8 g/dl (13.5-17.5); MEAN CORPUSCULAR HGB CONC 33.6 g/dl (32.0-36.5); MEAN CORPUSCULAR VOLUME 89.3 fl (80.0-96.0); PLATELET COUNT, AUTOMATED 368 10^3/uL (150-450); WHITE BLOOD COUNT 6.8 10^3/uL (4.0-10.0)
[2020-02-06 22:14] LABS: ACETAMINOPHEN LEVEL < 2.0 UG/ML (10.0-30.0); ALBUMIN 4.3 GM/DL (3.2-5.2); ALT/SGPT 34 U/L (12-78); BILIRUBIN,DIRECT 0.2 MG/DL (0.0-0.2); BILIRUBIN,TOTAL 0.9 MG/DL (0.2-1.0); BLOOD UREA NITROGEN 19 MG/DL (7-18); CALCIUM LEVEL 9.7 MG/DL (8.5-10.1); CARBON DIOXIDE LEVEL 24 MEQ/L (21-32); CHLORIDE LEVEL 104 MEQ/L (98-107); CREATININE FOR GFR 1.18 MG/DL (0.70-1.30); ETHYL ALCOHOL (ETHANOL) < 0.003 % (0.000-0.010); GLOMERULAR FILTRATION RATE > 60.0 (>56); GLUCOSE, FASTING 116 MG/DL (70-100); POTASSIUM SERUM 4.3 MEQ/L (3.5-5.1); SALICYLATE LEVEL 2.4 MG/DL (5.0-30.0); SODIUM LEVEL 136 MEQ/L (136-145); THYROID STIMULATING HORMONE 0.245 uIU/ML (0.358-3.740); TOTAL PROTEIN 7.8 GM/DL (6.4-8.2)
[2020-02-06 22:52] LABS: AMPHETAMINES LEVEL URINE POSITIVE (NEGATIVE); BARBITURATES URINE NEGATIVE (NEGATIVE); BENZODIAZEPINES URINE POSITIVE (NEGATIVE); CANNABINOIDS URINE POSITIVE (NEGATIVE); COCAINE METABOLITE URINE NEGATIVE (NEGATIVE); METHADONE URINE NEGATIVE (NEGATIVE); OPIATES URINE NEGATIVE (NEGATIVE); PHENCYCLIDINE URINE NEGATIVE (NEGATIVE)
[2020-02-06] MEDS ORDERED: VENLAFAXINE 37.5 MG TAB PO ONE (23:00)
[2020-02-06] MEDS ORDERED: busPIRone 10 MG TAB PO ONE (23:00)
[2020-02-07 00:01] VITALS: BP 166/89
== END 2020-02-07 00:04 | disposition home or self-care (01) ==
LOC: M ED 20:56
DX: F91.9 Conduct disorder, unspecified (principal); F15.10 Other stimulant abuse, uncomplicated; F17.200 Nicotine dependence, unspecified, uncomplicated; Z88.8 Allergy status to other drugs, medicaments and biological substances; Z79.51 Long term (current) use of inhaled steroids; Z79.899 Other long term (current) drug therapy
CPT/HCPCS: 36415; 80048; 80076; 80307; 84443; 85027; 99284; G0480

== ENCOUNTER → 2020-04-05 | Outpatient (CLI) | payer OTHER, MEDICAID ==
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
== END ==
LOC: M PAIN 13:15
PROVIDERS: ATTEND Family Medicine
DX: M79.18 Myalgia, other site (principal); M79.7 Fibromyalgia; J43.9 Emphysema, unspecified; E55.9 Vitamin D deficiency, unspecified; J30.9 Allergic rhinitis, unspecified; M51.26 Other intervertebral disc displacement, lumbar region; F17.210 Nicotine dependence, cigarettes, uncomplicated; Z79.899 Other long term (current) drug therapy; Z91.018 Allergy to other foods; Z91.030 Bee allergy status

== ENCOUNTER → 2020-04-20 | Outpatient (CLI) | payer OTHER, MEDICAID ==
[~2020-04-20] MED LIST changes: -CLIN150C14 PO; +CLIN150C15 PO; +METH-1165 PO; -METH750T2 PO
== END ==
LOC: M LABSMTC 13:39
PROVIDERS: ATTEND Anesthesiology
DX: Z20.822 Contact with and (suspected) exposure to COVID-19 (principal)

== ENCOUNTER → 2020-11-01 | Outpatient (CLI) | payer OTHER, MEDICAID ==
[~2020-11-01] MED LIST changes: -NABU-53 PO; +NABU-73 PO
--- NOTE | 2020-11-01 23:49 | ECWPNPC ---
PATIENT NAME: NIKHIL IRVIN : 1970 GENDER: MALE VISIT DATE: 11/01/2020 DISCHARGE DATE: 11/01/20 1017 VISIT LOCKED DATE TIME: PHYSICIAN: JUDI OSULLIVAN RESOURCE: JUDI OSULLIVAN REASON FOR APPOINTMENT 1. NECK/SHOULDER HISTORY OF PRESENT ILLNESS GENERAL: HPI 50-YEAR-OLD MALE IN FOR CHRONIC PAIN FOLLOW-UP. HE RATES HIS PAIN CURRENTLY AT A 6 OUT OF 10 AND DESCRIBES IT ACHING, BURNING, AND CONSTANT. PATIENT ADMITS TO INCREASED NECK PAIN WITH RADICULAR SYMPTOMS DOWN HIS RIGHT ARM.. -. FALL RISK SCREENING: SCREENING : NO FALLS REPORTED IN THE LAST YEAR. PAIN SCREENING: PATIENT HAS A COMPLAINT OF ACUTE OR CHRONIC PAIN :YES LOCATION OF PAIN:NECK, LEFT SHOULDER, RIGHT SHOULDER, BOTH SHOULDERS, UPPER BACK INTENSITY OF PAIN (SCALE OF 1 TO 10):6 WHAT DOES YOUR PAIN FEEL LIKE:ACHING, BURNING, CONTINOUS, SHARP, STABBING, TENDER, THROBBING, SORE DURATION:CONTINOUS PAIN IS INCREASED BY:ACTIVITIES PAIN IS DECREASED BY:OTHERS HEATING PAD NURSING NOTE: -. PAIN CENTER INTAKE QUESTIONS: DO YOU HAVE A HISTORY OF MRSA? :NO DO YOU TAKE A BLOOD THINNERS? :NO DO YOU HAVE ANY BLEEDING DISORDERS? :NO ANY NEW NUMBNESS OR WEAKNESS IN YOUR LEGS OR ARMS? :YES NUMBNESS AND TINGLING IN BILATERAL HANDS IS NEW ANY PACEMAKER,DEFIBRILLATOR, OR DORSAL COLUMN STIMULATOR? :NO DO YOU HAVE ANY RASHES OR OPEN SORES? :NO ARE YOU ALLERGIC TO IV DYE? :NO ARE YOU DIABETIC? :NO ANY NEW PROBLEMS WITH YOUR MEDICATIONS? :NO HAVE YOU RECEIVED A VACCINE IN THE PAST 30 DAYS? :NO DO YOU PLAN TO RECEIVE A VACCINE IN THE NEXT 21 DAYS? :NO DO YOU NEED ANY PRESCRIPTION? :NO DO YOU TAKE ANY IMMUNOSUPPRESSIVE MEDICATIONS? :NO DO YOU HAVE ANY KIDNEY OR LIVER DISEASE? :NO IS THERE A CHANCE YOU COULD BE ? :NO ARE YOU BREAST FEEDING? :NO CURRENT MEDICATIONS TAKING HEATING PAD MOIST/DRY - PAD 12 EXTERNALLY. DX: M51.16 PRN TAKING HYDROXYZINE HCL 50 MG TABLET 1 TABLET NEEDED ORALLY QHS PRN INSOMNIA TAKING HYDROXYZINE HCL 25 MG TABLET 1 TABLET ORALLY BID DURING THE DAY PRN ANXIETY/PAIN/SLEEP TAKING EFFEXOR 75 MG TABLET 1 TABLET WITH FOOD ORALLY DAILY TAKING BUSPIRONE HCL 30 MG TABLET 1 TABLET ORALLY TWICE A DAY TAKING VALIUM 5 MG TABLET 1 TABLET NEEDED ORALLY TWICE A DAY NEEDED, MDD #1.5 TAKING NICODERM CQ 7 MG/24HR PATCH 24 HOUR 1 PATCH TO SKIN TRANSDERMAL ONCE A DAY, USE AFTER THE 14MG PATCHES ARE GONE. TAKING TIZANIDINE HCL 4 MG TABLET 1 TABLET NEEDED ORALLY THREE TIMES A DAY TAKING LYRICA 200 MG CAPSULE 1 CAPSULE ORALLY Q 8 HRS MDD=3, NOTES: 01/12/20929 TAKING EFFEXOR XR 150 MG CAPSULE EXTENDED RELEASE 24 HOUR 1 CAPSULE WITH FOOD ORALLY ONCE A DAY TAKING ALBUTEROL SULFATE HFA 108 (90 BASE) MCG/ACT AEROSOL SOLUTION 2 PUFFS NEEDED INHALATION EVERY 4 HRS PRN TAKING ATROVENT HFA 17 MCG/ACT AEROSOL SOLUTION 2 PUFFS INHALATION FOUR TIMES A DAY TAKING NICOTINE 7 MG/24HR PATCH 24 HOUR APPLY ONE PATCH TO THE SKIN EVERY DAY TAKING BACLOFEN 10 MG TABLET 1 TAB ORALLY THREE TIMES A DAY, NOTES: 01/12/20929 NOT-TAKING TENS UNIT ELECTRO PADS ONE SET WITH FOUR PADS GEL PADS MAY USE TRANSDERMAL EVERY OTHER DAY DX:722.73 MEDICATION LIST REVIEWED AND RECONCILED WITH THE PATIENT PAST MEDICAL HISTORY FIBROMYALGIA COPD - EMPHYSEMA, GOLD II/A PER SPIROMETRY 05/2017 LUMBAGO EPIGASTRIC HERNIA DUST AND POLLEN ALLERGIES VITAMIN D DEFICIENCY TOBACCO USE 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 LATEX QUESTIONNAIRE LATEX ALLERGY : HAVE YOU EVER DEVELOPED ANY TYPE OF REACTION AFTER HANDLING LATEX PRODUCTS SUCH RUBBER GLOVES, CONDOMS, DIAPHRAGMS, BALLOONS, SOCKS, OR UNDERWEAR?NO LATEX ALLERGY : HAVE YOU EVER DEVELOPED ANY TYPE OF REACTION DURING OR AFTER DENTAL APPOINTMENT, VAGINAL/RECTAL EXAMINATION, SURGICAL PROCEDURE, OR ANY OTHER EXPOSURE?NO LATEX RISK : HAVE YOU EVER HAD ANY DIFFICULTY BREATHING OR HIVES AFTER EATING OR HANDLING ANY FRUITS, OR VEGETABLES; SUCH KIWI, BANANAS, STONE FRUITS, OR CHESTNUTSNO LATEX RISK : DO YOU HAVE A PREVIOUS PERSONAL HISTORY OF MORE THAN NINE SURGERIES, SPINA BIFIDA, OR REPEATED CATHERIZATIONS? NO LATEX RISK : ARE YOU FREQUENTLY EXPOSED TO LATEX PRODUCTS IN YOUR OCCUPATION?NO DATE ASKED : 11/01/2020 ALCOHOL SCREENING DID YOU HAVE A DRINK CONTAINING ALCOHOL IN THE PAST YEAR?YES HOW OFTEN DID YOU HAVE A DRINK CONTAINING ALCOHOL IN THE PAST YEAR?MONTHLY OR LESS (1 POINT) HOW MANY DRINKS DID YOU HAVE ON A TYPICAL DAY WHEN YOU WERE DRINKING IN THE PAST YEAR?1 OR 2 (0 POINTS) HOW OFTEN DID YOU HAVE SIX OR MORE DRINKS ON ONE OCCASION IN THE PAST YEAR?LESS THAN MONTHLY (1 POINT) POINTS2 INTERPRETATIONNEGATIVE RECREATIONAL DRUG USE DRUG USE?NO CAFFEINE CAFFEINE USE?YES HOW OFTEN AND HOW MUCH? 8 CUPS/ DAY AND 3 CUPS SODA/DAY SEXUAL HX HAD SEX IN THE LAST 12 MONTHS (VAGINAL, ORAL, OR ANAL)?NO HAVE YOU EVER HAD AN STD?NO HIV / HEP-C SCREENING HIV TEST OFFERED TO PATIENT:YES DATE OFFERED:10/08/2017 TEST ACCEPTED:NO REASON:PATIENT DECLINED BROCHURE PROVIDED TO PATIENTNO HEP-C TEST OFFERED TO PATIENT:YES DATE OFFERED:10/08/2017 TEST ACCEPTED:NO REASON:PATIENT DECLINED SIKHISM [id number] NONE NO RELIGION BELIEFS THAT WOULD IMPACT HEALTH CARE. 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 EXERCISE: NO REGULAR EXERCISE, INTERMITTENT, DAILY, WALKS. MARITAL STATUS: . - PFS REFERRAL NEEDED?NO CLERGY REFERRAL NEEDED?NO PUBLIC HEALTH REFERRAL NEEDED?NO HAS THE PATIENT BEEN EDUCATED REGARDING HIS/HER PLAN OF CARE?YES HAS THE PATIENT BEEN EDUCATED REGARDING PAIN, THE RISK FOR PAIN, THE IMPORTANCE OF EFFECTIVE PAIN MANAGEMENT, AND THE PAIN ASSESSMENT PROCESS?YES ADVANCE DIRECTIVE ADVANCE DIRECTIVE DISCUSSED WITH PATIENT:YES 04/24/20 PATIENT DOES NOT HAVE ANY ADVANCED DIRECTIVES AND HE DECLINES INFOMATION ON HCP AT THIS TIME REVIEW OF SYSTEMS CONSTITUTIONAL: ANY RECENT FEVER NO . CHILLS NO . WEIGHT CHANGE OF UNKNOWN REASONS NO . GASTROENTEROLOGY: NEW UNEXPLAINABLE CHANGES IN BOWEL CONTROL NO . CONSTIPATION NO . GENITOURINARY: ANY NEW CHANGE IN BLADDER CONTROL? NO . NEUROLOGY: NEW ONSET DIZZINESS OR NEUROLOGICAL CHANGES NOT MENTIONED NO . NEW NUMBNESS OR PAIN PATTERNS NOT MENTIONED AND PERTINENT TO TODAY'S VISIT NO . CARDIOLOGY: NEW CHEST PRESSURE NO . PATIENT DENIES NO . RESPIRATORY: UNEXPLAINABLE COUGH NO . NEW SHORTNESS OF BREATH NO . VITAL SIGNS WT 135.6 LBS, WT-KG 61.51 KG, HT 69 IN, BMI 20.02 INDEX, BP 140/91 MM HG, HR 91 /MIN, RR 18 /MIN, TEMP 96.6 F, OXYGEN SAT % 98%, SAFE IN ENV? (Y/N) YES, NA INITIALS AW [id number], REVIEWED BY: Bal AGUIRRE RN. EXAMINATION GENERAL EXAMINATION: GENERALNO ACUTE DISTRESS, WELL NOURISHED AND HYDRATED. PSYCHAPPROPRIATE MOOD AND AFFECT . LUNGS:CLEAR TO AUSCULTATION BILATERALLY, NO WHEEZES, RHONCHI, RALES. HEART:NO MURMURS, REGULAR RATE AND RHYTHM. ASSESSMENTS CERVICALGIA - M54.2 (PRIMARY) TREATMENT CERVICALGIA [facility] MRI SPINE, CERVICAL WITHOUT [id number] NOTES: 50-YEAR-OLD MALE IN FOR CHRONIC PAIN FOLLOW-UP. GIVEN PRESENTING SYMPTOMS RECOMMEND GETTING AN UPDATED MRI FOR FURTHER EVALUATION OF NEW ONSET RADICULAR SYMPTOMS. PATIENT HAS EXPRESSED UNDERSTANDING OF AND WAS IN AGREEMENT WITH TREATMENT PLAN. GIVEN TIME TO ASK QUESTIONS AND EXPRESS CONCERNS. PROCEDURE CODES FA211 ESTABILISHED [facility]IENT [facility] CHARGE DISPOSITION & COMMUNICATION FOLLOW UP POST IMAGING (REASON: MRI CERVICAL SPINE WITHOUT CONTRAST) ELECTRONICALLY SIGNED BY NARCISO TRUONG ON 11/01/2020 AT 10:29 AM EDT DISCLAIMER : THIS IS A VISIT SUMMARY EXTRACTED FROM THE [employer] CHART. IT IS NOT A COPY OF THE [employer] PROGRESS NOTE. MTDD
== END ==
LOC: M PAIN 09:45
PROVIDERS: ATTEND Family Medicine
DX: M54.2 Cervicalgia (principal); G89.29 Other chronic pain; M79.7 Fibromyalgia; J44.9 Chronic obstructive pulmonary disease, unspecified; F17.210 Nicotine dependence, cigarettes, uncomplicated; Z91.018 Allergy to other foods; Z91.030 Bee allergy status; Z79.899 Other long term (current) drug therapy

== ENCOUNTER → 2020-11-16 | Outpatient (CLI) | payer MEDICAID, OTHER ==
[~2020-11-16] MED LIST changes: -CLIN150C15 PO; +CLIN150C17 PO
--- NOTE | 2020-11-18 17:46 | REPVR ---
PROCEDURE INFORMATION: Exam: MR Cervical Spine Without Contrast Exam date and time: 11/16/2020 4:50 PM Age: 50 years old Clinical indication: Neck pain; Additional info: Cervicalgia TECHNIQUE: Imaging protocol: Multiplanar magnetic resonance images of the cervical spine without contrast. COMPARISON: CT Spine,cervical w/o contrast 02/23/2018 3:23 PM FINDINGS: Vertebrae: There is 2 mm of anterolisthesis of C3 upon C4. There is 2 mm retrolisthesis of C6 upon C7. There is discogenic sclerosis at C2-C3, C5-C6 and C6-C7. Straightening of the normal cervical lordosis may be related to patient position or due to muscle spasm. Disc spaces: There is loss of T2 signal throughout the intervertebral disc spaces, with loss of disc space height at C5-C6 and C6-C7, findings related to degenerative disc disease. Spinal cord: Normal signal. No cord compression. C2-C3: There is a small disc osteophyte complex with a right lateral protrusion which extends to the right foramen. There are uncovertebral joint and facet joint degenerative changes with severe right. No significant spinal stenosis. C3-C4: There is a small disc osteophyte complex which does not reach the cord. There are uncovertebral joint and facet joint degenerative changes with severe the left neural foramina. No significant spinal stenosis. C4-C5: There is a small central disc osteophyte complex which does not reach the cord. No significant spinal stenosis. C5-C6: There is a diffuse disc osteophyte complex which extends to the cord and into the right neural foramina. There are uncovertebral joint degenerative changes with severe narrowing the right neural foramina borderline central stenosis (AP diameter 9.1 mm). C6-C7: There is a diffuse disc osteophyte complex which extends to the cord and into the right neural foramina. There are uncovertebral joint degenerative changes and there is severe narrowing the right neural foramina and central stenosis (AP diameter 8.3 mm). C7-T1: No significant disc disease. There are left-sided facet joint degenerative changes. No significant spinal stenosis. Soft tissues: Unremarkable. Vertebral arteries: Expected flow voids in the vertebral arteries. IMPRESSION: 1. There is straightening of the normal cervical lordosis which may be related to patient position or muscle spasm. 2. At C6-C7, there is a diffuse disc osteophyte complex which extends to the cord and into the right neural foramina. There are uncovertebral joint degenerative changes and there is severe narrowing the right neural foramina and central stenosis. 3. At C5-C6, there is a diffuse disc osteophyte complex which extends to the cord and into the right neural foramina. There are uncovertebral joint degenerative changes with severe narrowing the right neural foramina borderline central stenosis. 4. At C2-C3 there is a right lateral foraminal protrusion with severe narrowing right neural foramina. Electronically signed by: Raza Leyva On 11/18/2020 17:46:18 PM
== END ==
LOC: M PLAIMG 15:24
PROVIDERS: ATTEND Family Medicine
DX: M50.21 Other cervical disc displacement, high cervical region (principal); M43.12 Spondylolisthesis, cervical region; M48.02 Spinal stenosis, cervical region; M50.31 Other cervical disc degeneration, high cervical region; M50.322 Other cervical disc degeneration at C5-C6 level; M50.323 Other cervical disc degeneration at C6-C7 level; M25.78 Osteophyte, vertebrae

== ENCOUNTER 2020-11-17 06:12 | Emergency (ER) | payer OTHER ==
[~2020-11-17] VITALS: Ht 175.3 cm; Wt 62.2 kg
[2020-11-17 06:13] VITALS: BP 153/82
== END 2020-11-17 06:47 | disposition left against medical advice (07) ==
LOC: M ED 06:12
DX: Z53.21 Procedure and treatment not carried out due to patient leaving prior to being seen by health care provider (principal)

== ENCOUNTER 2021-08-24 11:12 | Emergency (ER) | payer MEDICAID, OTHER ==
[~2021-08-24] VITALS: Ht 175.3 cm; Wt 62.7 kg
[~2021-08-24 11:12] MED LIST changes: +TIZA10TA; -TIZA4TAB4
[2021-08-24 11:43] LABS: BASO % 0.4 % (0.0-1.0); EOS # 0.1 10^3/uL (0.0-0.5); EOS % 0.9 % (0.0-3.0); HEMATOCRIT 40.8 % (42.0-52.0); HEMOGLOBIN 13.8 g/dl (13.5-17.5); LYMPH # 2.2 10^3/uL (1.5-5.0); LYMPH % 19.9 % (24.0-44.0); MEAN CORPUSCULAR HGB CONC 33.8 g/dl (32.0-36.5); MEAN CORPUSCULAR VOLUME 88.7 fl (80.0-96.0); MONO # 1.1 10^3/uL (0.0-0.8); MONO % 10.1 % (2.0-8.0); NEUTROPHILS # 7.5 10^3/uL (1.5-8.5); NEUTROPHILS % 68.4 % (36.0-66.0); PLATELET COUNT, AUTOMATED 304 10^3/uL (150-450); WHITE BLOOD COUNT 10.9 10^3/uL (4.0-10.0)
[2021-08-24 12:00] LABS: ERYTHROCYTE SEDIMENTATION RATE 8 mm/hr (0-20)
[2021-08-24 12:11] LABS: ALBUMIN 3.8 GM/DL (3.2-5.2); ALT/SGPT 33 U/L (12-78); BILIRUBIN,TOTAL 0.4 MG/DL (0.2-1.0); BLOOD UREA NITROGEN 17 MG/DL (7-18); C REACTIVE PROTEIN QUANTITATIV 0.78 MG/DL (0.00-0.30); CALCIUM LEVEL 8.8 MG/DL (8.5-10.1); CARBON DIOXIDE LEVEL 30 MEQ/L (21-32); CHLORIDE LEVEL 106 MEQ/L (98-107); CREATININE FOR GFR 0.98 MG/DL (0.70-1.30); GLOMERULAR FILTRATION RATE > 60.0 (>56); GLUCOSE, FASTING 89 MG/DL (70-100); SODIUM LEVEL 139 MEQ/L (136-145)
[2021-08-24 12:21] LABS: URIC ACID 4.5 MG/DL (3.5-7.2)
[2021-08-24] MEDS ORDERED: KETOROLAC 30 MG/ML 1ML VIAL IM ONE (12:35)
[2021-08-24] MEDS ORDERED: BACT800T5 PO (13:33)
[2021-08-24 13:42] VITALS: BP 147/68
== END 2021-08-24 13:58 | disposition home or self-care (01) ==
LOC: M ED 11:12
DX: L03.115 Cellulitis of right lower limb (principal); J44.9 Chronic obstructive pulmonary disease, unspecified; F17.200 Nicotine dependence, unspecified, uncomplicated; Z88.8 Allergy status to other drugs, medicaments and biological substances; Z79.899 Other long term (current) drug therapy
CPT/HCPCS: 36415; 80053; 84550; 85025; 85652; 86140; 93971; 96372; 99283; J1885

== ENCOUNTER 2021-08-27 15:53 | Emergency (ER) | payer MEDICAID, OTHER ==
[~2021-08-27] VITALS: Ht 175.3 cm; Wt 61.9 kg
[~2021-08-27 15:53] MED LIST changes: +BACT800T5 PO
[2021-08-27 16:01] VITALS: BP 133/67
== END 2021-08-27 18:53 | disposition left against medical advice (07) ==
LOC: M ED 15:53
DX: Z53.21 Procedure and treatment not carried out due to patient leaving prior to being seen by health care provider (principal)

== ENCOUNTER 2021-08-29 08:37 | Emergency (ER) | payer OTHER ==
[~2021-08-29] VITALS: Ht 175.3 cm; Wt 62.7 kg
[2021-08-29] MEDS ORDERED: BACTDSTA PO (09:15)
[2021-08-29] MEDS ORDERED: ACETAMINOPHEN 500 MG TAB PO ONE (10:15)
[2021-08-29] MEDS ORDERED: NS 1,000 ML IV ONE (10:15)
[2021-08-29] MEDS ORDERED: MORPHINE 2 MG/ML 1ML VIAL IV ONE (10:35)
[2021-08-29 11:15] VITALS: BP 123/59
[2021-08-29 11:37] LABS: HEMATOCRIT 36.6 % (42.0-52.0); HEMOGLOBIN 12.7 g/dl (13.5-17.5); MEAN CORPUSCULAR HEMOGLOBIN 30.3 pg (27.0-33.0); MEAN CORPUSCULAR HGB CONC 34.7 g/dl (32.0-36.5); MEAN CORPUSCULAR VOLUME 87.4 fl (80.0-96.0); PLATELET COUNT, AUTOMATED 308 10^3/uL (150-450); RED BLOOD COUNT 4.19 10^6/uL (4.30-6.10); WHITE BLOOD COUNT 10.8 10^3/uL (4.0-10.0)
[2021-08-29 12:09] LABS: BLOOD UREA NITROGEN 20 MG/DL (7-18); C REACTIVE PROTEIN QUANTITATIV 8.75 MG/DL (0.00-0.30); CALCIUM LEVEL 8.3 MG/DL (8.5-10.1); CARBON DIOXIDE LEVEL 26 MEQ/L (21-32); CHLORIDE LEVEL 106 MEQ/L (98-107); CREATININE FOR GFR 1.03 MG/DL (0.70-1.30); GLOMERULAR FILTRATION RATE > 60.0 (>56); GLUCOSE, FASTING 85 MG/DL (70-100); POTASSIUM SERUM 4.3 MEQ/L (3.5-5.1); SODIUM LEVEL 135 MEQ/L (136-145)
[2021-08-29 12:27] LABS: ATYPICAL LYMPH 6 % (0-5); BASOPHILS 1 % (0-1); EOSINOPHILS 3 % (0-3); LYMPHOCYTES 27 % (16-44); MONOCYTES 12 % (0-5); NEUTROPHILS 51 % (28-66); OVALOCYTES 1+; PLATELET ESTIMATE NORMAL (NORMAL)
[2021-08-29] MEDS ORDERED: VANCOMYCIN HCL 1,250 MG in IV FLUID PLACE HOLDER 1 EA IV ONE (12:50)
[2021-08-29] MEDS ORDERED: VANCOMYCIN HCL 750 MG, VIAL MATE ADAPTER 1 EACH in NS 250 ML IV ONE (13:00)
[2021-08-29 13:57] LABS: ERYTHROCYTE SEDIMENTATION RATE 33 mm/hr (0-20)
[2021-08-29] MEDS ORDERED: VANCOMYCIN HCL 500 MG in D5W MINI-BAG PLUS 100 ML IV ONE (14:00)
[2021-08-29] MEDS ORDERED: DALBAVANCIN 1,500 MG in D5W 250 ML IV ONE (14:35)
== END 2021-08-29 15:23 | disposition left against medical advice (07) ==
LOC: EDBD 08:37 → M ED 08:37 → CANBEDREQ 15:20 → M ED 15:23
DX: L03.115 Cellulitis of right lower limb (principal); Z79.899 Other long term (current) drug therapy; Z98.890 Other specified postprocedural states; Z88.8 Allergy status to other drugs, medicaments and biological substances
CPT/HCPCS: 36415; 80048; 83605; 85025; 85652; 86140; 87040; 87426; 96361; 96365; 99284; J3370

== ENCOUNTER 2023-03-16 22:12 | Observation (INO) | payer OTHER ==
[~2023-03-16] VITALS: Ht 175.3 cm; Wt 63.6 kg
[~2023-03-16 22:12] MED LIST changes: +BACTDSTA PO; +DICL100G10; -DICL1GEL3; -OXYB5TAB10 PO; +OXYB5TAB11 PO
[2023-03-16] MEDS ORDERED: NS 1,000 ML IV SCH (22:30)
[2023-03-16] MEDS ORDERED: MORPHINE 4 MG/ML 1ML VIAL IV PRN (22:30)
[2023-03-16] MEDS ORDERED: BOOSTRIX VACCINE (TETANUS/DIPHTH/ACEL. PERTUSSIS) 0.5ML SYR IM.IMMUN ONE (22:35)
[2023-03-16 22:41] LABS: BASO % 0.4 % (0.0-1.0); EOS # 0.1 10^3/uL (0.0-0.5); EOS % 1.2 % (0.0-3.0); HEMATOCRIT 38.9 % (42.0-52.0); HEMOGLOBIN 12.9 g/dl (13.5-17.5); LYMPH # 3.5 10^3/uL (1.5-5.0); LYMPH % 41.4 % (24.0-44.0); MEAN CORPUSCULAR HEMOGLOBIN 28.9 pg (27.0-33.0); MEAN CORPUSCULAR HGB CONC 33.2 g/dl (32.0-36.5); MEAN CORPUSCULAR VOLUME 87.2 fl (80.0-96.0); MONO # 0.8 10^3/uL (0.0-0.8); MONO % 9.7 % (2.0-8.0); NEUTROPHILS # 3.8 10^3/uL (1.5-8.5); NEUTROPHILS % 45.1 % (36.0-66.0); PLATELET COUNT, AUTOMATED 322 10^3/uL (150-450); RED BLOOD COUNT 4.46 10^6/uL (4.30-6.10); WHITE BLOOD COUNT 8.4 10^3/uL (4.0-10.0)
[2023-03-16] MEDS ORDERED: ISOVUE-370 76% 100ML VIAL As Ordered ONE (22:49)
[2023-03-16 22:55] LABS: INR 1.17; PARTIAL THROMBOPLASTIN TIME 28.5 SECONDS (24.8-34.2); PROTHROMBIN TIME 14.6 SECONDS (12.5-14.5)
[2023-03-16 22:56] LABS: ETHYL ALCOHOL (ETHANOL) < 0.003 % (0.000-0.010)
[2023-03-16 22:58] LABS: ALBUMIN 3.5 G/DL (3.2-5.2); ALKALINE PHOSPHATASE 79 U/L (46-116); ALT/SGPT 26 U/L (7.0-40); AST/SGOT 37 U/L (<34); BILIRUBIN,DIRECT 0.1 MG/DL (<0.4); BILIRUBIN,TOTAL 0.3 MG/DL (0.3-1.2); BLOOD UREA NITROGEN 22 MG/DL (9-23); CARBON DIOXIDE LEVEL 26 MMOL/L (20-31); CHLORIDE LEVEL 110 MMOL/L (98-107); CREATININE FOR GFR 0.88 MG/DL (0.70-1.30); GLOMERULAR FILTRATION RATE > 60.0 (>56); GLUCOSE, FASTING 99 MG/DL (60-100); SODIUM LEVEL 143 MMOL/L (136-145); TOTAL PROTEIN 6.3 G/DL (5.7-8.2)
[2023-03-17] MEDS ORDERED: HYDROMORPHONE HCL 0.5 MG/ 0.5 ML SYRINGE IV PRN (00:45)
[2023-03-17] MEDS ORDERED: ONDANSETRON 4MG 2ML VIAL IV PRN (00:45)
[2023-03-17] MEDS ORDERED: KETOROLAC 30 MG/ML 1ML VIAL IV PRN (00:45)
[2023-03-17] MEDS ORDERED: ACETAMINOPHEN TAB 650MG DOSE (2X325MG) PO PRN (00:45)
[2023-03-17] MEDS ORDERED: MOXIFLOXACIN 400 MG TAB PO ONE (00:45)
[2023-03-17] MEDS ORDERED: ALBUTEROL SULFATE 2.5MG/0.5ML INH NEB SOLN NEB PRN (00:45)
[2023-03-17 01:04] LABS: RSV AMPLIFICATION NEGATIVE (NEGATIVE)
[2023-03-17] MEDS: LR 1,000 ML IV SCH ×2 (02:20→15:25)
[2023-03-17 02:25] VITALS: BP 125/58; TEMP 98.3; O2SAT 96
[2023-03-17 02:27] LABS: BARBITURATES URINE NEGATIVE (NEGATIVE); BENZODIAZEPINES URINE NEGATIVE (NEGATIVE); COCAINE METABOLITE URINE NEGATIVE (NEGATIVE); METHADONE URINE NEGATIVE (NEGATIVE); PHENCYCLIDINE URINE NEGATIVE (NEGATIVE)
[2023-03-17 02:37] LABS: AMPHETAMINES LEVEL URINE POSITIVE (NEGATIVE); CANNABINOIDS URINE POSITIVE (NEGATIVE); OPIATES URINE POSITIVE (NEGATIVE)
[2023-03-17 06:30] VITALS: BP 111/64; TEMP 97.5; O2SAT 99
[2023-03-17] MEDS ORDERED: FOLIC ACID 1MG TAB PO SCH (09:00)
[2023-03-17] MEDS ORDERED: MULTIVITAMINS/MINERALS THERAP 1 TAB PO SCH (09:00)
[2023-03-17] MEDS ORDERED: NICOTINE 14 MG/24 HR TRANSDERMAL TD SCH (09:00)
[2023-03-17] MEDS ORDERED: THIAMINE 100 MG TAB PO SCH (09:00)
[2023-03-17 09:09] LABS: BASO % 0.4 % (0.0-1.0); EOS # 0.1 10^3/uL (0.0-0.5); EOS % 0.8 % (0.0-3.0); HEMATOCRIT 41.7 % (42.0-52.0); HEMOGLOBIN 13.1 g/dl (13.5-17.5); LYMPH # 1.4 10^3/uL (1.5-5.0); LYMPH % 14.6 % (24.0-44.0); MEAN CORPUSCULAR HEMOGLOBIN 28.7 pg (27.0-33.0); MEAN CORPUSCULAR HGB CONC 31.4 g/dl (32.0-36.5); MEAN CORPUSCULAR VOLUME 91.4 fl (80.0-96.0); MONO % 10.3 % (2.0-8.0); NEUTROPHILS # 7.1 10^3/uL (1.5-8.5); NEUTROPHILS % 73.5 % (36.0-66.0); PLATELET COUNT, AUTOMATED 227 10^3/uL (150-450); RED BLOOD COUNT 4.56 10^6/uL (4.30-6.10); WHITE BLOOD COUNT 9.7 10^3/uL (4.0-10.0)
[2023-03-17 09:27] LABS: BLOOD UREA NITROGEN 18 MG/DL (9-23); CALCIUM LEVEL 8.6 MG/DL (8.5-10.1); CARBON DIOXIDE LEVEL 22 MMOL/L (20-31); CHLORIDE LEVEL 112 MMOL/L (98-107); CREATININE FOR GFR 0.69 MG/DL (0.70-1.30); GLOMERULAR FILTRATION RATE > 60.0 (>56); GLUCOSE, FASTING 95 MG/DL (60-100); POTASSIUM SERUM 4.8 MMOL/L (3.5-5.1); SODIUM LEVEL 141 MMOL/L (136-145)
[2023-03-17] MEDS ORDERED: HOME MED LIST COMPLETE! XX SCH (09:45)
[2023-03-17] MEDS ORDERED: fentaNYL 100 MCG/2 ML INJECTION IV PRN (09:50)
[2023-03-17] MEDS ORDERED: MIDAZOLAM INJ 2MG/2ML VIAL IV PRN (09:50)
[2023-03-17] MEDS ORDERED: ROPIvacaine 0.5% 30ML VIAL PN ONE (09:50)
[2023-03-17] MEDS ORDERED: LIDOCAINE 1% SDV 5ML VIAL PN ONE (09:50)
[2023-03-17] MEDS ORDERED: dexAMETHasone 10MG/1ML VIAL PRES.FREE PN ONE (09:50)
[2023-03-17] MEDS ORDERED: LIDOCAINE 2% INJ 100 MG/5 ML SYRINGE As Ordered ONE ×2 (10:15→10:18)
[2023-03-17] MEDS ORDERED: ACETAMINOPHEN 1000MG 100ML IV BAG As Ordered ONE (10:15)
[2023-03-17] MEDS ORDERED: propofoL 200 MG/20 ML VIAL As Ordered ONE (10:15)
[2023-03-17] MEDS ORDERED: KETOROLAC 60MG 2ML VIAL As Ordered ONE (10:15)
[2023-03-17] MEDS ORDERED: HYDROmorphone HCL 2MG/ML 1ML VIAL As Ordered ONE (10:16)
[2023-03-17] MEDS ORDERED: LIDOCAINE 2% 100MG/5ML SDV (FOR ANES.) As Ordered ONE (10:19)
[2023-03-17] MEDS ORDERED: dexmedeTOMIDine (4MCG/ML)200MCG/50ML BTL (PRECEDEX) As Ordered ONE ×2 (10:25→11:11)
[2023-03-17] MEDS ORDERED: PHENYLephrine 500MCG 5ML (100MCG/ML) SYRINGE As Ordered ONE (10:49)
[2023-03-17] MEDS ORDERED: ePHEDrine SULFATE 25 MG/5 ML(5MG/ML) SYRINGE As Ordered ONE ×2 (10:49→11:24)
[2023-03-17] MEDS ORDERED: ceFAZolin 2 GM/D5W 50 ML IV BAG As Ordered ONE (10:49)
[2023-03-17 13:03] LABS: PROCALCITONIN <0.04 ng/ml
[2023-03-17 13:50] VITALS: BP 140/55; TEMP 97.7; O2SAT 94
[2023-03-17 14:30] VITALS: BP 120/62; TEMP 97.9; O2SAT 96
[2023-03-17] MEDS ORDERED: ceFAZolin SOD 2 GM in IV 1 EA IV SCH (20:00)
[2023-03-18] MEDS ORDERED: MOXIFLOXACIN 400 MG TAB PO SCH (06:00)
== END 2023-03-17 16:45 | disposition left against medical advice (07) ==
LOC: M ED 22:12 → EDBD 22:12 → INTOOBSV 03-17 00:42 → M ED INP 03-17 00:42 → M MSPAV 03-17 02:03
PROVIDERS: ADMIT Internal Medicine; ATTEND Internal Medicine
DX: S82.302A Unspecified fracture of lower end of left tibia, initial encounter for closed fracture (principal); S62.306A Unspecified fracture of fifth metacarpal bone, right hand, initial encounter for closed fracture; V03.10XA Pedestrian on foot injured in collision with car, pick-up truck or van in traffic accident, initial encounter; Y92.410 Unspecified street and highway as the place of occurrence of the external cause; Y93.9 Activity, unspecified; R91.8 Other nonspecific abnormal finding of lung field; Z53.20 Procedure and treatment not carried out because of patient's decision for unspecified reasons; F06.30 Mood disorder due to known physiological condition, unspecified; F17.218 Nicotine dependence, cigarettes, with other nicotine-induced disorders; Z79.51 Long term (current) use of inhaled steroids; Z88.8 Allergy status to other drugs, medicaments and biological substances; Z79.899 Other long term (current) drug therapy; F12.10 Cannabis abuse, uncomplicated; F14.90 Cocaine use, unspecified, uncomplicated; F15.90 Other stimulant use, unspecified, uncomplicated; F10.10 Alcohol abuse, uncomplicated
CPT/HCPCS: 27814; 36415; 64445; 70450; 71260; 72125; 72128; 72131; 73080; 73130; 73590; 73610; 73630; 74177; 76000; 80047; 80048; 80076; 80307; 82077; 84145; 85025; 85610; 85730; 86850; 86900; 86901; 87631; 90471; 90715; 93041; 94760; 96361; 96375; 99285; C1713; J0131; J0690; J1100; J1170; J1885; J2250; J2371; Q9967

== ENCOUNTER → 2023-03-31 | Outpatient (CLI) | payer OTHER | LOC: M SOG 07:55 | PROVIDERS: ATTEND Physician Assistant | DX: Z47.89 Encounter for other orthopedic aftercare (principal); Z53.9 Procedure and treatment not carried out, unspecified reason ==

== ENCOUNTER 2024-12-26 07:17 | Emergency (ER) | payer MEDICAID, OTHER, SELFPAY ==
[~2024-12-26] VITALS: Ht 175.3 cm; Wt 71.0 kg
[~2024-12-26 07:17] MED LIST changes: -IBUP-1022 PO; +IBUP600T42 PO; -OXYB5TAB11 PO; +OXYB5TAB14 PO; +PREG-35 PO; -PREG100CA PO
[2024-12-26] MEDS ORDERED: IBUP-1764 PO (07:29)
[2024-12-26] MEDS: NS (Normal Saline) 0.9% 1,000 ML IV ONE (10:30)
[2024-12-26] MEDS: KETOROLAC 30 MG/ML 1 ML VIAL IV ONE (10:30)
[2024-12-26 10:36] LABS: BASO # 0.0 10^3/uL (0.0-0.2); BASO % 0.3 % (0.0-1.0); EOS # 0.1 10^3/uL (0.0-0.5); EOS % 1.5 % (0.0-3.0); LYMPH # 2.1 10^3/uL (1.5-5.0); LYMPH % 22.4 % (24.0-44.0); MONO # 1.2 10^3/uL (0.0-0.8); MONO % 13.0 % (2.0-8.0); NEUTROPHILS # 5.8 10^3/uL (1.5-8.5); NEUTROPHILS % 62.5 % (36.0-66.0); PLATELET COUNT, AUTOMATED 242 10^3/uL (150-450)
[2024-12-26] MEDS: AMPICILLIN SOD/SULBACTAM SOD 3 GM in DEXTROSE 5% (D5W) MINI-BAG PLU 100 ML IV ONE (10:40)
[2024-12-26 10:41] LABS: ERYTHROCYTE SEDIMENTATION RATE 19 mm/hr (0-20)
[2024-12-26] MEDS ORDERED: ISOVUE-370 76% 100 ML VIAL As Ordered ONE (10:41)
[2024-12-26] MEDS ORDERED: HOME MED LIST COMPLETE! XX SCH (12:30)
[2024-12-26] MEDS ORDERED: AMOX875T2 PO (12:56)
[2024-12-26 12:58] VITALS: BP 115/55; TEMP 96.2; O2SAT 100
== END 2024-12-26 13:05 | disposition home or self-care (01) ==
LOC: M ED 07:17
DX: K04.7 Periapical abscess without sinus (principal); K08.89 Other specified disorders of teeth and supporting structures; F17.200 Nicotine dependence, unspecified, uncomplicated; J44.9 Chronic obstructive pulmonary disease, unspecified; M79.7 Fibromyalgia; Z88.8 Allergy status to other drugs, medicaments and biological substances; Z79.2 Long term (current) use of antibiotics; Z79.1 Long term (current) use of non-steroidal anti-inflammatories (NSAID)
CPT/HCPCS: 70491; 80047; 85025; 85652; 86140; 96365; 96375; 99284; J0295; J1885; Q9967